=== PATIENT | female | born 1930 | race Asian ===

== ENCOUNTER 2019-11-03 15:14 | Inpatient (IN) | payer MEDICARE, MEDICAID ==
[~2019-11-03] VITALS: Ht 154.9 cm; Wt 45.5 kg
[2019-11-03 15:15] VITALS: BP 138/76
--- NOTE | 2019-11-03 15:15 | NUR ---
ED Nurse Note: Patient arrived by ambulance from [facility]. The staff called 911 after pt's blood glucose was <30. EMS gave D10 enroute with subsequent BG reading of 187. Patient AxO x 1-2, has hx of alzheimers and dementia. Able to tell her name. Currently having no pain.
--- NOTE | 2019-11-03 15:19 | Emergency Room Report ---
History of Present Illness General Chief Complaint: Abnormal Labs Source: Patient Present Illness HPI Patient is a 89-year-old female presents for increased altered mental status. She was noted to have low blood sugar by EMS. She been given D50 with some improvement in her blood sugar. She had prior history of dementia. Patient comes from a assisted living. She denies any current complaints. History is limited by poor historian. Patient is on Levemir as well as Janumet and glipizide. Patient was noted to have improvement in blood sugar after being seen by EMS and given IV dextrose. Allergies: Coded Allergies: No Known Allergies (Unverified , 11/03/19) Patient History Past Medical History: see triage record, DM Reviewed Nursing Documentation: PMH: Agreed; PSxH: Agreed Nursing Documentation-PMH Past Medical History: No History, Except For Hx Hypertension: Yes Hx Diabetes: Yes Review of Systems All Other Systems: limited - Review of systems: Review systems is limited by patient's being a poor historian Physical Exam Vital Signs Date Time Temp Pulse Resp B/P (MAP) Pulse Ox O2 Delivery O2 Flow Rate FiO2 11/03/19 15:09 98 17 162/75 (104) 98 Room Air Sp02 EP Interpretation: reviewed, normal General Appearance: normal inspection, well appearing, no apparent distress, alert, obese, Chronically Ill Head: atraumatic ENT: normal ENT inspection, hearing grossly normal, normal voice Neck: normal inspection, full range of motion, supple, no bony tend Respiratory: normal inspection, lungs clear, normal breath sounds, no respiratory distress, no retraction, no wheezing Cardiovascular #1: regular rate, rhythm, no edema Gastrointestinal: normal inspection, normal bowel sounds, non tender, soft, no guarding, no hernia Genitourinary: no CVA tenderness Musculoskeletal: normal inspection, back normal, normal range of motion Neurologic: alert, motor strength/tone normal, marketing project specialist III-XII nml as tested, responsive, speech normal, normal inspection Psychiatric: normal inspection, judgement/insight normal, mood/affect normal Skin: Decubitus/Ulcer, other - skin ulcer Medical Decision Making Diagnostic Impression: Primary Impression: Hypoglycemia associated with type 2 diabetes mellitus Additional Impressions: Hypothermia Decubital ulcer ER Course Patient presented for low blood sugar. Differential diagnosis include was not limited to sepsis, medication overdose, decreased renal function, among others. Because of complexity of patient's case laboratory tests and imaging studies were ordered.patient's left her testing did not show any evidence of any definite infection . patient was noted to be somewhat hypothermic in the emergency department. She was started on warming blanket. Patient was given dextrose in the field and was noted to have improvement her blood sugar. Recheck of blood sugar showed adequate sugar level.Patient was noted to have some improvement in her temperature with a warming blanket. Dr. Maximino Harmon was contacted for inpatient management due to panel physician and prior use of oral sulfonylurea. Labs Test 11/03/19 15:50 11/03/19 17:10 White Blood Count 6.7 K/UL (4.8-10.8) Red Blood Count 3.57 M/UL (4.20-5.40) Hemoglobin 10.9 G/DL (12.0-16.0) Hematocrit 31.1 % (37.0-47.0) Mean Corpuscular Volume 87 FL (80-99) Mean Corpuscular Hemoglobin 30.5 PG (27.0-31.0) Mean Corpuscular Hemoglobin Concent 35.0 G/DL (32.0-36.0) Red Cell Distribution Width 11.8 % (11.6-14.8) Platelet Count 289 K/UL (150-450) Mean Platelet Volume 5.1 FL (6.5-10.1) Neutrophils (%) (Auto) 84.4 % (45.0-75.0) Lymphocytes (%) (Auto) 10.8 % (20.0-45.0) Monocytes (%) (Auto) 3.7 % (1.0-10.0) Eosinophils (%) (Auto) 0.5 % (0.0-3.0) Basophils (%) (Auto) 0.5 % (0.0-2.0) Sodium Level 142 MMOL/L (136-145) Potassium Level 3.8 MMOL/L (3.5-5.1) Chloride Level 104 MMOL/L (98-107) Carbon Dioxide Level 27 MMOL/L (21-32) Anion Gap 11 mmol/L (5-15) Blood Urea Nitrogen 22 mg/dL (7-18) Creatinine 1.2 MG/DL (0.55-1.30) Estimat Glomerular Filtration Rate mL/min (>60) Glucose Level 186 MG/DL (74-106) Lactic Acid Level 1.30 mmol/L (0.4-2.0) Calcium Level 9.3 MG/DL (8.5-10.1) Total Bilirubin 0.2 MG/DL (0.2-1.0) Aspartate Amino Transf (AST/SGOT) 41 U/L (15-37) Alanine Aminotransferase (ALT/SGPT) 26 U/L (12-78) Alkaline Phosphatase 58 U/L (46-116) Total Creatine Kinase 138 U/L (26-308) Creatine Kinase MB 2.5 NG/ML (0.0-3.6) Creatine Kinase MB Relative Index 1.8 Troponin I 0.009 ng/mL (0.000-0.056) Total Protein 8.1 G/DL (6.4-8.2) Albumin 3.0 G/DL (3.4-5.0) Globulin 5.1 g/dL Albumin/Globulin Ratio 0.6 (1.0-2.7) Urine Color Pale yellow Urine Appearance Clear Urine pH 6.5 (4.5-8.0) Urine Specific [place] 1.015 (1.005-1.035) Urine Protein 2+ (NEGATIVE) Urine Glucose (UA) 2+ (NEGATIVE) Urine Ketones Negative (NEGATIVE) Urine Blood 2+ (NEGATIVE) Urine Nitrite Negative (NEGATIVE) Urine Bilirubin Negative (NEGATIVE) Urine Urobilinogen Normal MG/DL (0.0-1.0) Urine Leukocyte Esterase Negative (NEGATIVE) Urine RBC 5-10 /HPF (0 - 2) Urine WBC 0-2 /HPF (0 - 2) Urine Squamous Epithelial Cells Moderate /LPF (NONE/OCC) Urine Bacteria Few /HPF (NONE) EKG Diagnostic Results Rate: normal - 83 Rhythm: NSR ST Segments: no acute changes Last Vital Signs Date Time Temp Pulse Resp B/P (MAP) Pulse Ox O2 Delivery O2 Flow Rate FiO2 11/03/19 15:09 98 17 162/75 (104) 98 Room Air Status: improved Disposition: ADMITTED INPATIENT Condition: Stable Solitario Hameed MD Nov 03, 2019 15:19
[2019-11-03] MEDS ORDERED: LOSARTAN POTASS25 MG ORAL (15:25)
[2019-11-03] MEDS ORDERED: NAMENDA10 MG ORAL (15:25)
[2019-11-03] MEDS ORDERED: TRIAMCINOLONE A15 G2 TP (15:25)
[2019-11-03] MEDS ORDERED: JANUMET 50-1,01 EACH ORAL (15:25)
[2019-11-03] MEDS ORDERED: LEVEMIR100 UNIT/1 SUBQ (15:25)
[2019-11-03] MEDS ORDERED: MIRTAZAPINE7.5 MG ORAL (15:25)
[2019-11-03] MEDS ORDERED: DONEPEZIL HCL5 M2 ORAL (15:25)
[2019-11-03] MEDS ORDERED: CRESTOR10 M1 ORAL (15:25)
[2019-11-03] MEDS ORDERED: LEVOCETIRIZINE D5 MG ORAL (15:25)
[2019-11-03] MEDS ORDERED: GLIPIZIDE5 MG ORAL (15:25)
--- NOTE | 2019-11-03 15:34 | NUR ---
ED Nurse Note: RECTAL TEMP 93.[address] LAI WAS NOTIFIED.
--- NOTE | 2019-11-03 15:45 | NUR ---
ED Nurse Note: After confirming rectal temp with recheck of 93.3 degrees, Bare Hugger placed on patient along with [address] Yoseph meyer.
[2019-11-03 16:14] LABS: BASOPHILS % (AUTO) 0.5 % (0.0-2.0); EOSINOPHILS % (AUTO) 0.5 % (0.0-3.0); HEMATOCRIT 31.1 % (37.0-47.0); HEMOGLOBIN 10.9 G/DL (12.0-16.0); LYMPHOCYTES % (AUTO) 10.8 % (20.0-45.0); MEAN CORPUSCULAR VOLUME 87 FL (80-99); MONOCYTES % (AUTO) 3.7 % (1.0-10.0); NEUTROPHILS % (AUTO) 84.4 % (45.0-75.0); PLATELET COUNT 289 K/UL (150-450); RED BLOOD COUNT 3.57 M/UL (4.20-5.40); RED CELL DISTRIBUTION WIDTH 11.8 % (11.6-14.8); WHITE BLOOD COUNT 6.7 K/UL (4.8-10.8)
[2019-11-03 16:20] VITALS: BP 121/78
[2019-11-03 16:42] LABS: ANION GAP 11 mmol/L (5-15); BLOOD UREA NITROGEN 22 mg/dL (7-18); CALCIUM 9.3 MG/DL (8.5-10.1); CARBON DIOXIDE 27 MMOL/L (21-32); CHLORIDE 104 MMOL/L (98-107); CREATININE 1.2 MG/DL (0.55-1.30); POTASSIUM 3.8 MMOL/L (3.5-5.1); SODIUM 142 MMOL/L (136-145)
--- NOTE | 2019-11-03 16:45 | NUR ---
ED Nurse Note: Recheck rectal temp is 93.7. Dr. Hameed aware. Patient resting in bed. Responds to questions, no s/s of acute distress.
[2019-11-03 17:08] LABS: ALANINE AMINOTRANSFERASE 26 U/L (12-78); ALBUMIN/GLOBULIN RATIO 0.6 (1.0-2.7); ALKALINE PHOSPHATASE 58 U/L (46-116); ASPARTATE AMINO TRANSFERASE 41 U/L (15-37); BILIRUBIN,TOTAL 0.2 MG/DL (0.2-1.0); CKMB 2.5 NG/ML (0.0-3.6); CREATINE KINASE 138 U/L (26-308)
[2019-11-03 17:20] VITALS: BP 112/80
[2019-11-03 17:25] LABS: APPEARANCE,URINE CLEAR; BILIRUBIN, URINE NEGATIVE (NEGATIVE); COLOR,URINE PALE YELLOW; GLUCOSE, URINE (UA) 2+ (NEGATIVE); KETONES,URINE NEGATIVE (NEGATIVE); LEUKOCYTE ESTERASE ,URINE NEGATIVE (NEGATIVE); NITRITE,URINE NEGATIVE (NEGATIVE); PH,URINE 6.5 (4.5-8.0); PROTEIN,URINE 2+ (NEGATIVE); UROBILINOGEN,URINE NORMAL MG/DL (0.0-1.0)
--- NOTE | 2019-11-03 17:50 | NUR ---
ED Nurse Note: Called and gave report to Melvi VANCE
--- NOTE | 2019-11-03 18:10 | NUR ---
NURSE NOTES: Patient arrived from the ER by cristel with nurse Lobo and CERTIFIED MEDICAL TECHNICIAN assistance. Patient's in stable condition, no s/s of distress or SOB, denies pain, AO x 2-3. front desk monitor applied, IV is Left AC, 18g, intact, patent and asymptomatic, change into hospital gown, yellow socks applied. Left anne noted with deep tissue injury, pictures taken. Patient's cool to touch but appear to be shivering. Checked axillary temp: 93.9, rechecked oral temp: 97.3. Bed low and locked, call light within reach, side rails x 3, bed alarm is armed. Left message to Dr. Harmon for the new admission. Awaiting for response. Vital signs: BP 165/73, AZ 84, RR 17, O2 95%, Temp: 97.3 Oral.
--- NOTE | 2019-11-03 19:20 | NUR ---
NURSE NOTES: Received report from RAJIV Ogden. Pt is sleeping, lying, semi-quinonez's; resting comfortably. No signs of acute distress noted. AOx1. Unable to make needs known. Primarily speaks Macedonian. Checked IV site; patent and flushed. No erythema, bleeding, or infiltration noted. Bed at lowest position, brakes on, siderails up x2. Call light within reach. Will continue to monitor.
--- NOTE | 2019-11-03 19:35 | NUR ---
HAND-OFF: Report given to RAJIV Bajwa. Patient's stable. Plan of care endorsed. .
[2019-11-03 20:00] VITALS: BP 149/78
[2019-11-03] MEDS ORDERED: Vancomycin 1gm/D5W 275ml IVPB ONE ×2 (20:00)
--- NOTE | 2019-11-03 20:06 | NUR ---
NURSE NOTES: Notified Dr. Harmon regarding patient's stage III pressure ulcer on lower leg. Was told, "I'll consult someone for that." Also notified him that the patient may need diet modifications since she has no teeth. Received new order for ST evaluation. Noted and carried out.
--- NOTE | 2019-11-03 21:00 | History and Physical Report ---
DATE OF ADMISSION: 11/03/2019 CHIEF COMPLAINT: Hypothermia and hypoglycemia. HISTORY OF PRESENT ILLNESS: The patient is an 89-year-old female. She is unable to provide any history. She is transferred from either assisted living or half-way facility with complaints of hypoglycemia. There was only a med list from the shelter. The patient apparently has a history of hypertension and diabetes, unclear whether or not she has been eating. She is also on long-acting insulin. On evaluation in the emergency room, the patient was hypothermic. Her sugar that was 186, she did receive sugar in the field. In light of her persistent hypothermia, she is admitted for further evaluation and care. PAST MEDICAL HISTORY: As above. PAST SURGICAL HISTORY: Unknown. CURRENT MEDICATIONS: Reconciled and reviewed. ALLERGIES: None. FAMILY HISTORY: Unknown. SOCIAL HISTORY: There is no known history of tobacco, ethanol, or drugs. REVIEW OF SYSTEMS: From the patient is unobtainable. PHYSICAL EXAMINATION: VITAL SIGNS: Temperature was 93.2, pulse 98, respirations 17, and blood pressure 152/75. GENERAL: The patient is well developed, in no apparent distress. HEART: Regular rate and rhythm. LUNGS: Clear. ABDOMEN: Soft, nontender, nondistended. EXTREMITIES: Without clubbing, cyanosis, or edema. The patient has a wound on the left anne, approximately 3 x 3 cm with some mild erythema. LABORATORY DATA: UA was clear. White count was 6, hemoglobin 10, hematocrit 31, and platelets 289,000. Sodium 142 and potassium is 3.8. A1c was 7.4. Creatinine is 1.2. TSH was 0.229. Troponin is 0.009. EKG showed sinus rhythm. ASSESSMENT: This is an 89-year-old female with complaints of hypothermia and hypoglycemia, suspect secondary to her insulin regimen. She also has a history of hypertension. PLAN: 1. IV hydration. 2. Monitor Accu-Cheks. 3. We will discontinue insulin and oral hypoglycemics. 4. Repeat troponin in the morning. 5. We will check a full thyroid function panel as well as a cortisol level. 6. The patient received IV antibiotic therapy for possible cellulitis. 7. We will get a CT scan of the legs, rule out underlying osteo. 8. Surgery consultation and Cardiology evaluation to be obtained. Maximino Harmon M.D. DR: BUCK JOB#: [id number] CC:
[2019-11-03] MEDS: NovoLOG Insulin Flexpen SUBQ SCH (21:26)
[2019-11-03] MEDS: Heparin 5000 units/ml inj SUBQ SCH (21:31)
[2019-11-03] MEDS: Piperacillin/Tazobactam 3.375 GM in NS 110 ML IVPB SCH (22:36)
--- NOTE | 2019-11-03 23:45 | NUR ---
NURSE NOTES: Called ER and ER admitting to retrieve patient's packet from [facility]. Was told, "they never sent us a packet. Only a face sheet." In an attempt to call [facility] for patient's packet and pneumonia/influenza vaccine information, received response from what sounds to be an [employer] officer stating that there is a door to door search underway in the facility looking for a gunman. Will attempt to call again at a later time.
[2019-11-04] VITALS: BP 135/58
--- NOTE | 2019-11-04 03:50 | NUR ---
NURSE NOTES: Pt is sleeping. Checked IV lines and rate; patent and running. Will continue to monitor.
[2019-11-04 04:00] VITALS: BP 114/58
[2019-11-04] MEDS: Piperacillin/Tazobactam 3.375 GM in NS 110 ML IVPB SCH ×3 (06:00→22:07)
[2019-11-04] MEDS: NovoLOG Insulin Flexpen SUBQ SCH ×4 (06:30→20:42)
[2019-11-04 06:31] LABS: BASOPHILS % (AUTO) 0.4 % (0.0-2.0); EOSINOPHILS % (AUTO) 0.3 % (0.0-3.0); HEMATOCRIT 29.7 % (37.0-47.0); HEMOGLOBIN 9.7 G/DL (12.0-16.0); LYMPHOCYTES % (AUTO) 13.8 % (20.0-45.0); MEAN CORPUSCULAR VOLUME 91 FL (80-99); MONOCYTES % (AUTO) 4.7 % (1.0-10.0); NEUTROPHILS % (AUTO) 80.8 % (45.0-75.0); PLATELET COUNT 325 K/UL (150-450); RED BLOOD COUNT 3.27 M/UL (4.20-5.40); RED CELL DISTRIBUTION WIDTH 13.1 % (11.6-14.8); WHITE BLOOD COUNT 17.6 K/UL (4.8-10.8)
[2019-11-04 07:14] LABS: ALANINE AMINOTRANSFERASE 20 U/L (12-78); ALBUMIN 2.6 G/DL (3.4-5.0); ALBUMIN/GLOBULIN RATIO 0.6 (1.0-2.7); ALKALINE PHOSPHATASE 51 U/L (46-116); ANION GAP 6 mmol/L (5-15); ASPARTATE AMINO TRANSFERASE 36 U/L (15-37); BILIRUBIN,TOTAL 0.6 MG/DL (0.2-1.0); BLOOD UREA NITROGEN 21 mg/dL (7-18); CALCIUM 8.4 MG/DL (8.5-10.1); CARBON DIOXIDE 29 MMOL/L (21-32); CHLORIDE 107 MMOL/L (98-107); CREATININE 1.3 MG/DL (0.55-1.30); POTASSIUM 3.7 MMOL/L (3.5-5.1); SODIUM 142 MMOL/L (136-145)
--- NOTE | 2019-11-04 07:28 | NUR ---
NURSE NOTES: Dr. Harmon at the nursing station, made aware of WBC went up from 6.7 to 17.6, no fever, already on Vanco and Zosyn. No new order given at this time. Will continue to monitor.
--- NOTE | 2019-11-04 07:29 | NUR ---
NURSE NOTES: Dr. Harmon at [facility] nursing station, made aware of blood glucose was 30, dextrose IVP x1, most recent BS 187.
--- NOTE | 2019-11-04 07:31 | NUR ---
HAND-OFF: Report given to RAJIV Alvarez. Pt is awake and in stable condition.
--- NOTE | 2019-11-04 07:40 | NUR ---
NURSE NOTES: Received report from RAJIV Bajwa. Patient in bed resting, no active s/s cardiac, respiratory distress noticed at this time. AOx2, SR with HR 84. Endorsed BS was 32, dextrose IVP given x1, most recent BS 187, MD made aware. IV on left AC 18G, asymptomatic, patent, intact, IVF running as prescribed rate. Patient denies pain at this time. Bed in lowest position, side rails upx2, call light within reach, bed alarm on. Will continue to monitor.
[2019-11-04] MEDS: D5NS 1,000 ML IV SCH ×2 (07:41→20:36)
[2019-11-04 08:00] VITALS: BP 139/69
--- NOTE | 2019-11-04 08:56 | General Progress Note ---
Assessment/Plan Problem List: (1) Sepsis ICD Codes: A41.9 - Sepsis, unspecified organism SNOMED: 46417231 (2) Toxic metabolic encephalopathy ICD Codes: G92 - Toxic encephalopathy SNOMED: 082301511 (3) Hypothermia ICD Codes: T68.XXXA - Hypothermia, initial encounter SNOMED: 063549520 (4) Decubital ulcer ICD Codes: L89.90 - Pressure ulcer of unspecified site, unspecified stage SNOMED: 794610626 (5) Hypoglycemia associated with type 2 diabetes mellitus ICD Codes: E11.649 - Type 2 diabetes mellitus with hypoglycemia without coma SNOMED: 713589300, 15346057 Status: stable Assessment/Plan: ivf with dextrose iv abx id eval pending follow up cultures ct left leg Subjective ROS Limited/Unobtainable: No Constitutional: Reports: malaise, weakness HEENT: Reports: no symptoms Cardiovascular: Reports: no symptoms Respiratory: Reports: no symptoms Gastrointestinal/Abdominal: Reports: no symptoms Genitourinary: Reports: no symptoms Neurologic/Psychiatric: Reports: pre-existing deficit Endocrine: Reports: no symptoms Hematologic/Lymphatic: Reports: no symptoms Allergies: Coded Allergies: No Known Allergies (Unverified , 11/03/19) All Systems: reviewed and negative except above Subjective hypoglycemic this am. minimal po. wbc elevated. Objective Last 24 Hour Vital Signs Date Time Temp Pulse Resp B/P (MAP) Pulse Ox O2 Delivery O2 Flow Rate FiO2 11/04/19 08:00 96.8 83 20 139/69 (92) 97 11/04/19 04:00 98.1 84 20 114/58 (76) 93 11/04/19 03:38 83 11/04/19 00:00 90 11/04/19 00:00 98.0 94 22 135/58 (83) 93 11/03/19 20:00 96 11/03/19 20:00 98.1 98 22 149/78 (101) 93 11/03/19 19:00 Room Air 11/03/19 18:10 93.7 82 18 112/76 97 Room Air 11/03/19 17:20 93.7 17 112/80 98 Room Air 11/03/19 16:20 93.5 18 121/78 99 Room Air 11/03/19 15:15 93.2 17 138/76 98 Room Air 11/03/19 15:09 93.2 98 17 162/75 (104) 98 Room Air Intake and Output 11/03/19 11/04/19 19:00 07:00 Intake Total 0 ml 640.5 ml Output Total 500 ml Balance -500 ml 640.5 ml Intake Oral 0 ml 140 ml IV Total 500.5 ml Output Urine Total 500 ml # Voids 1 Laboratory Tests 11/03/19 15:50: White Blood Count 6.7, Red Blood Count 3.57L, Hemoglobin 10.9L, Hematocrit 31.1L , Mean Corpuscular Volume 87, Mean Corpuscular Hemoglobin 30.5, Mean Corpuscular Hemoglobin Concent 35.0, Red Cell Distribution Width 11.8, Platelet Count 289, Mean Platelet Volume 5.1L, Neutrophils (%) (Auto) 84.4H, Lymphocytes (%) (Auto) 10.8L, Monocytes (%) (Auto) 3.7, Eosinophils (%) (Auto) 0.5, Basophils (%) (Auto) 0.5, Sodium Level 142, Potassium Level 3.8, Chloride Level 104, Carbon Dioxide Level 27, Anion Gap 11, Blood Urea Nitrogen 22H, Creatinine 1.2, Estimat Glomerular Filtration Rate , Glucose Level 186H, Hemoglobin A1c 7.4H, Lactic Acid Level 1.30, Calcium Level 9.3, Total Bilirubin 0.2, Aspartate Amino Transf (AST/SGOT) 41H, Alanine Aminotransferase (ALT/SGPT) 26, Alkaline Phosphatase 58, Total Creatine Kinase 138, Creatine Kinase MB 2.5, Creatine Kinase MB Relative Index 1.8, Troponin I 0.009, Total Protein 8.1, Albumin 3.0L , Globulin 5.1, Albumin/Globulin Ratio 0.6L, Thyroid Stimulating Hormone (TSH) 0.229L 11/03/19 17:10: Urine Color Pale yellow, Urine Appearance Clear, Urine pH 6.5, Urine Specific [place] 1.015, Urine Protein 2+H, Urine Glucose (UA) 2+H, Urine Ketones Negative , Urine Blood 2+H, Urine Nitrite Negative, Urine Bilirubin Negative, Urine Urobilinogen Normal, Urine Leukocyte Esterase Negative, Urine RBC 5-10H, Urine WBC 0-2, Urine Squamous Epithelial Cells ModerateH, Urine Bacteria Few 11/04/19 05:30: White Blood Count 17.6#H, Red Blood Count 3.27L, Hemoglobin 9.7L, Hematocrit 29.7L, Mean Corpuscular Volume 91, Mean Corpuscular Hemoglobin 29.5, Mean Corpuscular Hemoglobin Concent 32.5, Red Cell Distribution Width 13.1, Platelet Count 325, Mean Platelet Volume 5.1L, Neutrophils (%) (Auto) 80.8H, Lymphocytes (%) (Auto) 13.8L, Monocytes (%) (Auto) 4.7, Eosinophils (%) (Auto) 0.3, Basophils (%) (Auto) 0.4, Sodium Level 142, Potassium Level 3.7, Chloride Level 107, Carbon Dioxide Level 29, Anion Gap 6, Blood Urea Nitrogen 21H, Creatinine 1.3, Estimat Glomerular Filtration Rate , Glucose Level 30#*L, Calcium Level 8.4L, Total Bilirubin 0.6, Aspartate Amino Transf (AST/SGOT) 36, Alanine Aminotransferase (ALT/SGPT) 20, Alkaline Phosphatase 51, Total Protein 7.3, Albumin 2.6L, Globulin 4.7, Albumin/Globulin Ratio 0.6L, Cortisol [Pending] Height (Feet): 5 Height (Inches): 1.00 Weight (Pounds): 100 General Appearance: WD/WN, alert Neck: supple Cardiovascular: normal rate, regular rhythm Respiratory/Chest: chest wall non-tender, lungs clear, normal breath sounds, no respiratory distress Abdomen: normal bowel sounds, non tender, soft, no organomegaly Edema: no edema noted Arm (L), no edema noted Arm (R), no edema noted Leg (L) - 3x3 cm ulcer left anne, no edema noted Leg (R), no edema noted Pedal (L), no edema noted Pedal (R), no edema noted Generalized Neurologic: alert, responsive Maximino Harmon MD Nov 04, 2019 08:56
[2019-11-04] MEDS: Pantoprazole Inj IVP SCH (09:16)
[2019-11-04] MEDS: Heparin 5000 units/ml inj SUBQ SCH ×2 (09:16→20:39)
--- NOTE | 2019-11-04 10:42 | NUR ---
NURSE NOTES: Skin assessed with wound nurse, patient positive for scabies, scratching abdomen area, no opening at this time. Dr. Harmon made aware, per MD, Elimite head to toe. Order noted, entered, carried out. Will continue to monitor.
--- NOTE | 2019-11-04 11:07 | Diagnostic Imaging Report ---
Indication: Shortness of breath Technique: One view of the chest Comparison: none Findings: Inspiration is suboptimal. There are basilar atelectatic changes. 1 cm nodular opacity projects in the left midlung. This may be calcified. This may also be within the anterior left third rib. No definite infiltrates or effusions. The heart size is upper limits normal Impression: 1 cm left lung nodule versus left third rib lesion. Consider CT for further evaluation if clinically indicated. Dr. Harmon notified at the time of interpretation No acute process otherwise
--- NOTE | 2019-11-04 11:59 | NUR ---
RD ASSESSMENT & RECOMMENDATIONS SEE CARE ACTIVITY FOR COMPLETE ASSESSMENT DAILY ESTIMATED NEEDS: Needs based on Wound, advanced age, DM 51.8kg 25-35 kcals/kg 7623-3633 total kcals 1.25-1.5 g protein/kg 65-78 g total protein 25-30ml/kcal mL/kg 0571-4043 total fluid mLs NUTRITION DIAGNOSIS: Altered nutrition related lab values r/t diabetes as evidenced by A1C 7.4, U glu 2+, w/ hypoglycemic event (30*) [facility] pure[facility] PO DIET RECOMMENDATIONS: Liberalized Regular diet (texture per ALLEY WORKER) ADDITIONAL RECOMMENDATIONS: 1) W/ poor po intake, rec GLUCERNA as HPN w/ meals 2) F/up w/ WC eval-> rec JAGUAR BID 3) Calibrated bed scale weight SNF wt: 114lbs, Bed wt: 116lbs 4) ALLEY WORKER eval for texture 5) HS snacks nightly to prevent hypoglycemia + Snacks in b/w meals
[2019-11-04 12:00] VITALS: BP 130/77
--- NOTE | 2019-11-04 12:15 | NUR ---
NOTES: REFERRED BY DR SAUCEDO FOR SWALLOW EVAL, SEE FULL REPORT. DYSPHAGIA RISK FACTORS FOR THIS 89 Y.O. ADVANCED AGED FEMALE: ACUTE ABNORMAL LABS, SULFONUREA ASSOCIATED WITH HYPOGLYCEMIA (TYPE 2 DM), HYPOTHERMIA, LUNGS ARE CLEAR PER CXR. H/O ON GERD MEDS NOW, ALZHEIMER'S DZ DEMENTIA (ON 2 MEDS MEMANTINE AND DONEPEZIL), MIRTAZAPINE FOR DEPRESSION, HTN, DIABETES (GLIPIZIDE), RHABDOMYOLYSIS. IN ASSISTED LIVING ? DIET TYPE AND NO POLST/ADVANCE DIRECTIVE REGARDING TUBE FEEDING PREFERENCES IF NEEDS. CURRENTLY ON A CCHO-MED PUREED AND THIN LIQUID DIET W/O REPORTED OVERT ASPIRATION AND NO PO MEDS GIVEN PER RN, MANGO. NO RD REPORT TO DATE AND INTAKE IS ONLY 50% WITH ASSIST TO EAT/DRINK. PER RN INDONESIAN VACUUM TRUCK DRIVER, PATIENT CONFUSED BUT CAN INTELLIGIBLY EXPRESS SOME BASIC NEEDS. EDENTULOUS AND DID NOT UNDERSTAND QUESTION ABOUT DENTURES. INITIAL IMPRESSIONS: S/S OF A MILD-MODERATE OROPHARYNGEAL DYSPHAGIA HAS GROSSLY FUNCTIONAL LIP CLOSURE FOR STRAW/TSP. TONGUE ROM IS GROSSLY FUNCTIONAL DIFFICULT TO TEST STRENGTH AND SPEECH MILDLY SLOWER. GIVEN TSP PUREED HAS LONGER OROPHARYNGEAL TRANSIT TIMES AND TAKES 2-6 SECONDS PRIOR TO TRIGGERING A SWALLOW (FAIR HYOLARYNGEAL EXCURSION), WITH MILD ORAL RESIDUE (MIDDLE OF MOUTH) AT TIMES BUT CLEARS WITH EXTRA SWALLOW (S) 1-2 EXTRA, NO OVERT ASPIRATION. NEEDS CUES NOT TO SPEAK WITH PUREED IN HER MOUTH (INCREASES ASPIRATION RISK DUE TO COGNITIVE-BEHAVIORAL DEFICITS). GIVEN THIN LIQUIDS VIA STRAW, ONLY TOOK ONE SIP AT A TIME, SWALLOWED AFTER A FEW SECONDS WITH FAIR HYOLARYNGEAL EXCURSION BUT SWALLOW LOOKS EFFORTFUL, AND COMPLETED EXTRA SWALLOW AFTER A FEW MORE SECONDS, NO OVERT ASPIRATION. HAS SILENT ASP RISK BUT LUNGS ARE CLEAR NOW. INTAKE SLOW, NEEDS FEEDER, AND INTAKE ONLY 50%. PER RN, NO ISSUES WITH APPETITE. RECOMMENDATIONS: CONSIDER COMPLETING A MOD BARIUM SWALLOW STUDY IP OR OP IF DC IF PO CONTINUES FOR QUALITY OF LIFE, CONSIDER CONTINUING WITH CURRENT CCHO-MED PUREED DIET BUT MAKE MOIST AND THIN LIQUIDS (ONE SIP AT A TIME) WITH CUES IN INDONESIAN FOR ASPIRATION AND REFLUX PRECAUTIONS (NO TALKING WITH FOOD/LIQUIDS IN MOUTH) AND ONE TO ONE FEEDING. SEND HIGH ALLEN SUP PER RD (GLUCERNA TID) EDUCATED/TRAINED RN MANGO IN POSTED ASP/REFLUX PRECAUTIONS. SKILLED DYSPHAGIA MANAGEMENT AND TX AND COG-COM EVAL TX FOR COM TIPS (FOR ALZHEIMER'S DEMENTIA). LEFT MESSAGE WITH DR SAUCEDO
--- NOTE | 2019-11-04 12:28 | Diagnostic Imaging Report ---
Indication: Pain, wound of left proximal ankle Technique: No IV contrast utilized, reason not stated. Spiral acquisitions obtained through the left ankle Multiplanar reconstructions were generated. Total dose length product 245 mGycm. CTDIvol(s) 4 mGy. Radiation dose was minimized using automated exposure control Comparison: none Findings: There is edema of the subcutaneous fat of the ankle, predominantly laterally and posteriorly. No definite discrete fluid collection is demonstrated, although evaluation for such is limited in the absence of IV contrast. There is irregularity of the superficial soft tissues of the distal anne region which presumably reflects an area of ulceration. No associated discrete fluid collection demonstrated. The bones are intact. No evidence of acute fracture, dislocation, osteolytic defect, osseous erosion, or unusual periosteal reaction. There is a calcaneal spur present. Impression: Irregularity of the superficial soft tissues in the distal anne region is probably reflecting an area of ulceration No definite discrete fluid collection to suggest abscess, although evaluation for such is limited in the absence of IV contrast Edema of the subcutaneous fat. This may be vasogenic in origin or could indicate cellulitis No definite findings to suggest acute osteomyelitis. Note, however, limited sensitivity of plain radiographs for such. If there is high clinical suspicion an MRI or bone scan should be considered for further evaluation. The CT scanner at [facility] is accredited by the [employer] and the scans are performed using protocols designed to limit radiation exposure to as low as reasonably achievable to attain images of sufficient resolution adequate for diagnostic evaluation.
--- NOTE | 2019-11-04 13:02 | NUR ---
NURSE NOTES:WOUND CARE NOTES:Pt presented on admission with Full thickness ulcer jasbir L tibia. Base of wound has 90% fibrinous slough,which was removed with friction with Gauze (L)2cm x(W)2.5cm x (D)0.5cm . Borders macerated with surrounding erythema. No elevation in skin temp noted. R and L heels are both boggy with non-blanching erythema. Non-blanching erythema sacrum with small sheared area noted. Surrounding hyperpigmentation from previous wound. Pt noted to have generalized pimple -like rash,with burrowing noted to R and L lateral axillae,web spaces of both hands,chest ,both flanks, both groin areas,and both feet. Pt noted to be aggressively scratching at skin. Tx.Plan: Please notify of Pt's rash. Cleanse wound jasbir L tibia with Saline. Apply Therahoney. Apply Cavilon Skin Barrier periwound.Cover with Optifoam drsg. Daily and PRN. Apply Moisture Barrier Paste to Sacrum. Cover with Optifoam drsg. Change every 3 days and prn. Apply Cavilon Skin Barrier to both heels. Cover each heel with Optifoam drsg. Change every 7 days and prn. Reposition at least every 2hours or as tolerated. Off-load heels with pillow.
--- NOTE | 2019-11-04 13:37 | NUR ---
CASE MANAGEMENT:REVIEW 89 YR OLD FEMALE BIBA FROM [facility] CC: ABNORMAL LABS AND LOW BLOOD SUGAR. BS-25 PMH: ALZHEIMER DEMENTIA SI:SEPSIS.HYPOGLYCEMIA. HYPOTHERMIA 93.2 (R) 98 17 162/75 98 % ON RA BUN+22 GLUCOSE+186 IS: TRACIE BERMUDEZ IV VANCOMYCIN IVF@100/HR BLOOD CX CXR : TELEMETRY DCP: FROM ASSISTED LIVING
--- NOTE | 2019-11-04 15:04 | Consultation ---
History of Present Illness General Date patient seen: Nov 04, 2019 Chief Complaint: Abnormal Labs Present Illness HPI This is a 89-year-old female with multiple medical committees who is in assisted living was identified to have altered mental status and hypoglycemic and abnormal labs. Patient was transferred to [facility] for evaluation. Patient was admitted for further care and management. On admission noted to have abnormal labs multiple wounds requiring care and management. Surgery called to evaluate and assist with care. Patient seen, patient evaluated, chart reviewed. Patient unable to provide history given medical condition and mental status at the time. She is limited given her advanced age. Allergies: Coded Allergies: No Known Allergies (Unverified , 11/03/19) Medication History Scheduled Donepezil Hcl* (Donepezil Hcl*), 5 MG ORAL DAILY, (Reported) Glipizide* (Glipizide*), 5 MG ORAL DAILY, (Reported) Insulin Detemir (Levemir), 20 SUBQ ACBREAKFAST, (Reported) Levocetirizine Dihydrochloride (Levocetirizine Dihydrochloride), 5 MG ORAL DAILY , (Reported) Losartan Potassium* (Losartan Potassium*), 25 MG ORAL DAILY, (Reported) Memantine Hcl* (Namenda*), 28 MG ORAL DAILY, (Reported) Mirtazapine* (Mirtazapine*), 7.5 MG ORAL BEDTIME, (Reported) Rosuvastatin Calcium (Crestor), 5 MG ORAL DAILY, (Reported) Sitagliptin Phos/Metformin Hcl (Janumet 50-1,000 Mg Tablet), 1 TAB ORAL DAILY, ( Reported) Triamcinolone Acetonide (Triamcinolone Acetonide 0.1% Oint*), 0 TP TWICE A DAY, (Reported) Patient History Limited by: age, medical condition History Provided By: Medical Record, PMD Healthcare decision maker Resuscitation status Full Code Advanced Directive on File Past Medical/Surgical History Past Medical/Surgical History: (1) Hypothermia (2) Decubital ulcer (3) Sepsis (4) Toxic metabolic encephalopathy (5) Hypoglycemia associated with type 2 diabetes mellitus Review of Systems ROS Narrative Unable to provide given current medical condition mental status Physical Exam General Appearance: no apparent distress Lines, tubes and drains: peripheral HEENT: atraumatic, anicteric, mucous membranes moist Neck: normal alignment, supple Respiratory/Chest: no respiratory distress, no accessory muscle use, decreased breath sounds Cardiovascular/Chest: normal rate, no JVD Abdomen: soft, no organomegaly, no mass, other Extremities: slow capillary refill Skin Exam: warm/dry Neurologic: unresponsiveness Last 24 Hour Vital Signs Date Time Temp Pulse Resp B/P (MAP) Pulse Ox O2 Delivery O2 Flow Rate FiO2 11/04/19 12:00 98.6 80 18 130/77 (94) 98 11/04/19 12:00 65 11/04/19 09:00 Room Air 11/04/19 08:00 71 11/04/19 08:00 96.8 83 20 139/69 (92) 97 11/04/19 04:00 98.1 84 20 114/58 (76) 93 11/04/19 03:38 83 11/04/19 00:00 90 11/04/19 00:00 98.0 94 22 135/58 (83) 93 11/03/19 20:00 96 11/03/19 20:00 98.1 98 22 149/78 (101) 93 11/03/19 19:00 Room Air 11/03/19 18:10 93.7 82 18 112/76 97 Room Air 11/03/19 17:20 93.7 17 112/80 98 Room Air 11/03/19 16:20 93.5 18 121/78 99 Room Air 11/03/19 15:15 93.2 17 138/76 98 Room Air 11/03/19 15:09 93.2 98 17 162/75 (104) 98 Room Air Intake and Output 11/03/19 11/04/19 19:00 07:00 Intake Total 0 ml 640.5 ml Output Total 500 ml Balance -500 ml 640.5 ml Intake Oral 0 ml 140 ml IV Total 500.5 ml Output Urine Total 500 ml # Voids 1 Laboratory Tests Test 11/03/19 15:50 11/03/19 17:10 11/04/19 05:30 White Blood Count 6.7 K/UL (4.8-10.8) 17.6 K/UL (4.8-10.8) #H Red Blood Count 3.57 M/UL (4.20-5.40) L 3.27 M/UL (4.20-5.40) L Hemoglobin 10.9 G/DL (12.0-16.0) L 9.7 G/DL (12.0-16.0) L Hematocrit 31.1 % (37.0-47.0) L 29.7 % (37.0-47.0) L Mean Corpuscular Volume 87 FL (80-99) 91 FL (80-99) Mean Corpuscular Hemoglobin 30.5 PG (27.0-31.0) 29.5 PG (27.0-31.0) Mean Corpuscular Hemoglobin Concent 35.0 G/DL (32.0-36.0) 32.5 G/DL (32.0-36.0) Red Cell Distribution Width 11.8 % (11.6-14.8) 13.1 % (11.6-14.8) Platelet Count 289 K/UL (150-450) 325 K/UL (150-450) Mean Platelet Volume 5.1 FL (6.5-10.1) L 5.1 FL (6.5-10.1) L Neutrophils (%) (Auto) 84.4 % (45.0-75.0) H 80.8 % (45.0-75.0) H Lymphocytes (%) (Auto) 10.8 % (20.0-45.0) L 13.8 % (20.0-45.0) L Monocytes (%) (Auto) 3.7 % (1.0-10.0) 4.7 % (1.0-10.0) Eosinophils (%) (Auto) 0.5 % (0.0-3.0) 0.3 % (0.0-3.0) Basophils (%) (Auto) 0.5 % (0.0-2.0) 0.4 % (0.0-2.0) Sodium Level 142 MMOL/L (136-145) 142 MMOL/L (136-145) Potassium Level 3.8 MMOL/L (3.5-5.1) 3.7 MMOL/L (3.5-5.1) Chloride Level 104 MMOL/L (98-107) 107 MMOL/L (98-107) Carbon Dioxide Level 27 MMOL/L (21-32) 29 MMOL/L (21-32) Anion Gap 11 mmol/L (5-15) 6 mmol/L (5-15) Blood Urea Nitrogen 22 mg/dL (7-18) H 21 mg/dL (7-18) H Creatinine 1.2 MG/DL (0.55-1.30) 1.3 MG/DL (0.55-1.30) Estimat Glomerular Filtration Rate mL/min (>60) mL/min (>60) Glucose Level 186 MG/DL (74-106) H 30 MG/DL (74-106) #*L Hemoglobin A1c 7.4 % (4.3-6.0) H Lactic Acid Level 1.30 mmol/L (0.4-2.0) Calcium Level 9.3 MG/DL (8.5-10.1) 8.4 MG/DL (8.5-10.1) L Total Bilirubin 0.2 MG/DL (0.2-1.0) 0.6 MG/DL (0.2-1.0) Aspartate Amino Transf (AST/SGOT) 41 U/L (15-37) H 36 U/L (15-37) Alanine Aminotransferase (ALT/SGPT) 26 U/L (12-78) 20 U/L (12-78) Alkaline Phosphatase 58 U/L (46-116) 51 U/L (46-116) Total Creatine Kinase 138 U/L (26-308) Creatine Kinase MB 2.5 NG/ML (0.0-3.6) Creatine Kinase MB Relative Index 1.8 Troponin I 0.009 ng/mL (0.000-0.056) Total Protein 8.1 G/DL (6.4-8.2) 7.3 G/DL (6.4-8.2) Albumin 3.0 G/DL (3.4-5.0) L 2.6 G/DL (3.4-5.0) L Globulin 5.1 g/dL 4.7 g/dL Albumin/Globulin Ratio 0.6 (1.0-2.7) L 0.6 (1.0-2.7) L Thyroid Stimulating Hormone (TSH) 0.229 uiU/mL (0.358-3.740) Urine Color Pale yellow Urine Appearance Clear Urine pH 6.5 (4.5-8.0) Urine Specific [place] 1.015 (1.005-1.035) Urine Protein 2+ (NEGATIVE) H Urine Glucose (UA) 2+ (NEGATIVE) H Urine Ketones Negative (NEGATIVE) Urine Blood 2+ (NEGATIVE) H Urine Nitrite Negative (NEGATIVE) Urine Bilirubin Negative (NEGATIVE) Urine Urobilinogen Normal MG/DL (0.0-1.0) Urine Leukocyte Esterase Negative (NEGATIVE) Urine RBC 5-10 /HPF (0 - 2) H Urine WBC 0-2 /HPF (0 - 2) Urine Squamous Epithelial Cells Moderate /LPF (NONE/OCC) H Urine Bacteria Few /HPF (NONE) Cortisol 11.5 UG/DL Height (Feet): 5 Height (Inches): 1.00 Weight (Pounds): 100 Medications Current Medications Medications (Trade) Dose Ordered Sig/Luz Maria Route PRN Reason Start Time Stop Time Status Last Admin Dose Admin Dextrose (Dextrose 50%) 25 ml Q30M PRN IV Hypoglycemia 11/03/19 18:45 12/03/19 18:44 Dextrose (Dextrose 50%) 50 ml Q30M PRN IV Hypoglycemia 11/03/19 18:45 12/03/19 18:44 11/04/19 06:26 Dextrose/Sodium Chloride 1,000 ml @ 75 mls/hr [id number] IV 11/04/19 07:16 12/04/19 07:15 11/04/19 07:41 Heparin Sodium (Porcine) (Heparin 5000 units/ml) 5,000 units EVERY 12 HOURS SUBQ 11/03/19 21:00 12/03/19 20:59 11/04/19 09:16 Insulin Aspart (NovoLOG) BEFORE MEALS AND HS SUBQ 11/03/19 21:00 12/03/19 20:59 11/03/19 21:26 Pantoprazole (Protonix) 40 mg DAILY IVP 11/04/19 09:00 12/04/19 08:59 11/04/19 09:16 Piperacillin Sod/ Tazobactam Sod 3.375 gm/Sodium Chloride 110 ml @ 27.5 mls/hr EVERY 8 HOURS IVPB 11/03/19 22:00 11/08/19 21:59 11/04/19 13:16 Vancomycin HCl (Vanco rx to dose) 1 ea DAILY PRN MISC Per rx protocol 11/03/19 18:45 12/03/19 18:44 Vancomycin HCl 500 mg/Dextrose 110 ml @ 110 mls/hr Q24H IVPB 11/04/19 20:00 11/09/19 19:59 Assessment/Plan Problem List: (1) Severe protein-calorie malnutrition Assessment & Plan: DAILY ESTIMATED NEEDS: Needs based on Wound, advanced age, DM 51.8kg 25-35 kcals/kg 3536-0727 total kcals 1.25-1.5 g protein/kg 65-78 g total protein 25-30ml/kcal mL/kg 5807-7213 total fluid mLs NUTRITION DIAGNOSIS: Altered nutrition related lab values r/t diabetes as evidenced by A1C 7.4, U glu 2+, w/ hypoglycemic event (30*) CURRENT DIET: CCHO MED puree PO DIET RECOMMENDATIONS: Liberalized Regular diet (texture per [employer] CONSULTANT) ADDITIONAL RECOMMENDATIONS: 1) W/ poor po intake, rec GLUCERNA as HPN w/ meals 2) F/up w/ WC eval-> rec JAGUAR BID 3) Calibrated bed scale weight SNF wt: 114lbs, Bed wt: 116lbs 4) [employer] CONSULTANT eval for texture 5) HS snacks nightly to prevent hypoglycemia + Snacks in b/w meals ICD Codes: E43 - Unspecified severe protein-calorie malnutrition SNOMED: 925595112, 454014702, 698432658 (2) Decubital ulcer Assessment & Plan: Pt presented on admission with 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 Base of wound has 90% fibrinous slough,which was removed with friction with Gauze non excisional debridement when necessary (L)2cm x(W)2.5cm x (D)0.5cm . Borders macerated with surrounding erythema. No elevation in skin temp noted. R and L heels are both boggy with non-blanching erythema. Non-blanching erythema sacrum with small sheared area noted. Surrounding hyperpigmentation from previous wound. Pt noted to have generalized pimple -like rash,with burrowing noted to R and L lateral axillae,web spaces of both hands,chest ,both flanks, both groin areas, and both feet. Pt noted to be aggressively scratching at skin. possible scabies. ID eval Tx.Plan: Cleanse wound jasbir L tibia with Saline. Apply Therahoney. Apply Cavilon Skin Barrier periwound.Cover with Optifoam leanng. Daily and PRN. Apply Moisture Barrier Paste to Sacrum. Cover with Optifoam drsg. Change every 3 days and prn. Apply Cavilon Skin Barrier to both heels. Cover each heel with Optifoam drsg. Change every 7 days and prn. Reposition at least every 2hours or as tolerated. Off-load heels with pillow. Nutritional optimization Will monitor and follow with recommendations ICD Codes: L89.90 - Pressure ulcer of unspecified site, unspecified stage SNOMED: 497562168 (3) Toxic metabolic encephalopathy Assessment & Plan: Abnormal labs, altered mental status, hypoglycemia IV fluids Dextrose Trend labs Glucose checks We will follow with recommendations thank you ICD Codes: G92 - Toxic encephalopathy SNOMED: 109749072 Ibrahima Connors Nov 04, 2019 15:04
[2019-11-04 16:00] VITALS: BP 104/60
--- NOTE | 2019-11-04 19:07 | NUR ---
HAND-OFF: Report given to RAJIV Emmanuel.
--- NOTE | 2019-11-04 19:45 | NUR ---
NURSE NOTES: Received report from RAJIV Alvarez. Patient is in bed, awake and responsive to verbal and tactile stimuli. Breathing regular and unlabored with no s/s of SOB noted at this time. Patient's IV is intact, Y-sited with primary fluids as well as antibiotics and is running the fluids at prescribed rate. Patient remains on isolation. Bed is in lowest position, breaks engaged, and call light within reach at all times. Will continue to monitor.
[2019-11-04 20:00] VITALS: BP 115/54
[2019-11-04] MEDS: Vancomycin 500mg/D5W 110ml IVPB SCH ×2 (20:38)
[2019-11-04] MEDS ORDERED: Tubing IV Secondary IV ONE (21:09)
[2019-11-04] MEDS ORDERED: NS 275ml ONE (21:09)
[2019-11-05] VITALS: BP 118/52
[2019-11-05] MEDS: D5NS 1,000 ML IV SCH (00:01)
[2019-11-05 04:00] VITALS: BP 136/65
--- NOTE | 2019-11-05 04:45 | Consultation ---
DATE OF CONSULTATION: 11/03/2019 CARDIOLOGY CONSULTATION CONSULTING PHYSICIAN: Kevin Zapata M.D. REQUESTING PHYSICIAN: Maximino Harmon M.D. REASON FOR CONSULTATION: Hypothermia and bradycardia. HISTORY OF PRESENT ILLNESS: This is an 89-year-old [place] female resides at an assisted living facility. She was altered in mentation and paramedics were summoned. She was noted to be hypoglycemic and given a dose of D50. She was unable to give reliable history due to her underlying dementia. She apparently is on insulin as well as an oral hypoglycemic agents. In the emergency room, vital signs were unstable including a temperature of 93 prompting this consultation. The patient was noted to have a sinus rhythm. There were episodes of slow heart rate noted although strips are not available. PAST MEDICAL HISTORY: Includes hypertension, type 2 diabetes mellitus, cerebrovascular disease with dementia. MEDICATIONS: Reviewed. ALLERGIES: None. FAMILY HISTORY: Not known. SOCIAL HISTORY: Not obtainable. REVIEW OF SYSTEMS: Not obtainable due to altered mentation and dementia. Available data from assisted living records is outlined above. PHYSICAL EXAMINATION: GENERAL: She is poorly kempt, withdrawn but alert. VITAL SIGNS: In the emergency room, blood pressure 162/75, heart rate 98, respiratory rate 17 on arrival. Presently blood pressure is 149/78, pulse 96, respiratory rate 22. HEENT: Temporal wasting. Wounds are pictured. NECK: Supple. Mucous membranes dry. LUNGS: Clear. CARDIAC: Regular rhythm and rate. Normal S1, S2 with a 1/6 systolic murmur at base. ABDOMEN: Soft EXTREMITIES: There is no edema. LABORATORY DATA: White count is 6.7, hemoglobin 10.9. Troponin negative. Lactic acid 1.3. BUN 22, creatinine 1.2. Potassium 3.8. Sodium 142, bicarb 27, albumin 3. IMPRESSION: 1. Hypothermia likely due to exposure. 2. Transient bradycardia due to above. 3. Decubitus. 4. Mild protein-calorie malnutrition. 5. History of hypertension and hypertensive heart disease. 6. Hypoglycemia due to 7. Type 2 diabetes mellitus. PLAN: 1. Volume support. 2. Warming blankets and Ximena Hugger. 3. Thyroid panel and cortisol level. 4. Hold parameters for antihypertensive therapy. 5. No oral hypoglycemics. 6. Insulin coverage by sliding scale only . 7. DVT prophylaxis and skin care. Kevin Zapata M.D. DR: Maria Isabel JOB#: [id number] CC:
--- NOTE | 2019-11-05 05:00 | Progress Note ---
DATE: 11/04/2019 CARDIOLOGY PROGRESS NOTE SUBJECTIVE: The patient seen and evaluated. Case discussed with nursing staff. The patient was treated today for scabies. She has also seen by the surgeon and wound care has been initiated. Temperature has normalized, remains withdrawn and poorly interactive, but alert. OBJECTIVE: VITAL SIGNS: Blood pressure 104/60, pulse 65, respirations 18, afebrile, and temperature 97. Wound as pictured. LUNGS: Clear. Mucous membranes dry. CARDIAC: Regular. Normal S1, S2 with a 1/6 systolic murmur at apex. ABDOMEN: Soft. EXTREMITIES: No edema. IMPRESSION: 1. Hypothermia exposure. 2. [id number] protein-calorie malnutrition. 3. Possible sepsis. 4. Scabies. 5. Hypovolemia and dehydration. 6. Hypoglycemia, resolved. PLAN: 1. Continue hydration with saline and dextrose. 2. Empiric antimicrobials. 3. Skin care, Permethrin therapy per Infectious Disease provider relations consultant. 4. Hold antihypertensives. 5. Protein supplement. 6. DVT prophylaxis. Kevin Zapata M.D. DR: LO JOB#: [id number] CC:
[2019-11-05] MEDS: Piperacillin/Tazobactam 3.375 GM in NS 110 ML IVPB SCH ×3 (06:05→22:37)
[2019-11-05] MEDS: NovoLOG Insulin Flexpen SUBQ SCH ×4 (06:06→21:26)
--- NOTE | 2019-11-05 07:19 | NUR ---
HAND-OFF: Report given to RAJIV Solis. Patient in stable condition.
--- NOTE | 2019-11-05 07:24 | NUR ---
NURSE NOTES: Received pt in bed, sleeping. No s/s of distress/pain. Room air. IV on L wrist 22g intact and patent, y-sided, running D5NS @75 ml/hr and zosyn. Bed in the lowest, locked, and alarm on. Call light within reach. Will continue to monitor
[2019-11-05 07:36] LABS: BASOPHILS % (AUTO) 0.8 % (0.0-2.0); EOSINOPHILS % (AUTO) 3.7 % (0.0-3.0); HEMATOCRIT 28.7 % (37.0-47.0); HEMOGLOBIN 9.2 G/DL (12.0-16.0); LYMPHOCYTES % (AUTO) 25.5 % (20.0-45.0); MEAN CORPUSCULAR VOLUME 92 FL (80-99); MONOCYTES % (AUTO) 8.1 % (1.0-10.0); NEUTROPHILS % (AUTO) 61.9 % (45.0-75.0); PLATELET COUNT 289 K/UL (150-450); RED BLOOD COUNT 3.12 M/UL (4.20-5.40); RED CELL DISTRIBUTION WIDTH 13.1 % (11.6-14.8); WHITE BLOOD COUNT 7.4 K/UL (4.8-10.8)
[2019-11-05 08:00] VITALS: BP 143/63
[2019-11-05 08:00] LABS: ALANINE AMINOTRANSFERASE 19 U/L (12-78); ALBUMIN 2.4 G/DL (3.4-5.0); ALBUMIN/GLOBULIN RATIO 0.5 (1.0-2.7); ALKALINE PHOSPHATASE 48 U/L (46-116); AMYLASE 48 U/L (25-115); ANION GAP 8 mmol/L (5-15); ASPARTATE AMINO TRANSFERASE 32 U/L (15-37); BILIRUBIN,TOTAL 0.4 MG/DL (0.2-1.0); BLOOD UREA NITROGEN 16 mg/dL (7-18); CALCIUM 7.8 MG/DL (8.5-10.1); CARBON DIOXIDE 24 MMOL/L (21-32); CHLORIDE 111 MMOL/L (98-107); CREATININE 1.3 MG/DL (0.55-1.30); POTASSIUM 3.7 MMOL/L (3.5-5.1); SODIUM 143 MMOL/L (136-145)
[2019-11-05] MEDS: Pantoprazole Inj IVP SCH (08:19)
[2019-11-05] MEDS: Heparin 5000 units/ml inj SUBQ SCH ×2 (08:20→21:26)
[2019-11-05 12:00] VITALS: BP 117/58
--- NOTE | 2019-11-05 14:59 | General Progress Note ---
Assessment/Plan Problem List: (1) Sepsis ICD Codes: A41.9 - Sepsis, unspecified organism SNOMED: 06346234 (2) Toxic metabolic encephalopathy ICD Codes: G92 - Toxic encephalopathy SNOMED: 845393721 (3) Hypothermia ICD Codes: T68.XXXA - Hypothermia, initial encounter SNOMED: 764886418 (4) Decubital ulcer ICD Codes: L89.90 - Pressure ulcer of unspecified site, unspecified stage SNOMED: 851942150 (5) Hypoglycemia associated with type 2 diabetes mellitus ICD Codes: E11.649 - Type 2 diabetes mellitus with hypoglycemia without coma SNOMED: 955305993, 69790454 Status: stable Assessment/Plan: dc ivf monitor BS iv abx id eval pending follow up cultures Subjective ROS Limited/Unobtainable: No Constitutional: Reports: malaise, weakness HEENT: Reports: no symptoms Cardiovascular: Reports: no symptoms Respiratory: Reports: no symptoms Gastrointestinal/Abdominal: Reports: no symptoms Genitourinary: Reports: no symptoms Neurologic/Psychiatric: Reports: pre-existing deficit Endocrine: Reports: no symptoms Allergies: Coded Allergies: No Known Allergies (Unverified , 11/03/19) Subjective hypoglycemia better. remains on ivf. CT negative for osteo. labile po intake Objective Last 24 Hour Vital Signs Date Time Temp Pulse Resp B/P (MAP) Pulse Ox O2 Delivery O2 Flow Rate FiO2 11/05/19 12:00 83 11/05/19 12:00 97.5 69 17 117/58 (77) 95 11/05/19 08:58 Room Air 11/05/19 08:00 97.5 76 18 143/63 (89) 96 11/05/19 08:00 67 11/05/19 04:00 63 11/05/19 04:00 98.7 66 17 136/65 (88) 94 11/05/19 00:00 70 11/05/19 00:00 98.7 74 18 118/52 (74) 94 11/04/19 21:00 Room Air 11/04/19 20:00 71 11/04/19 20:00 98.9 70 17 115/54 (74) 94 11/04/19 16:00 65 11/04/19 16:00 97.0 64 19 104/60 (75) 95 Intake and Output 11/04/19 11/05/19 19:00 07:00 Intake Total 260 ml 570 ml Output Total 540 ml Balance -280 ml 570 ml Intake Oral 260 ml 120 ml IV Total 450 ml Output Urine Total 540 ml # Voids 3 3 Laboratory Tests 11/05/19 06:13: White Blood Count 7.4#, Red Blood Count 3.12L, Hemoglobin 9.2L, Hematocrit 28.7L , Mean Corpuscular Volume 92, Mean Corpuscular Hemoglobin 29.4, Mean Corpuscular Hemoglobin Concent 31.9L, Red Cell Distribution Width 13.1, Platelet Count 289, Mean Platelet Volume 5.4L, Neutrophils (%) (Auto) 61.9, Lymphocytes (%) (Auto) 25.5, Monocytes (%) (Auto) 8.1, Eosinophils (%) (Auto) 3.7H, Basophils (%) (Auto) 0.8, Erythrocyte Sedimentation Rate 114H, Prothrombin Time 10.3, Prothromb Time International Ratio 1.0, Activated Partial Thromboplast Time 32, Sodium Level 143, Potassium Level 3.7, Chloride Level 111H, Carbon Dioxide Level 24, Anion Gap 8, Blood Urea Nitrogen 16, Creatinine 1.3, Estimat Glomerular Filtration Rate , Glucose Level 163#H, Calcium Level 7.8L, Total Bilirubin 0.4, Aspartate Amino Transf (AST/SGOT) 32, Alanine Aminotransferase (ALT/SGPT) 19, Alkaline Phosphatase 48, C-Reactive Protein, Quantitative 7.0H, Total Protein 6.9, Albumin 2.4L, Globulin 4.5, Albumin/Globulin Ratio 0.5L, Amylase Level 48, Lipase 122 Height (Feet): 5 Height (Inches): 1.00 Weight (Pounds): 100 General Appearance: WD/WN, alert, confused Neck: supple Cardiovascular: regular rhythm Respiratory/Chest: chest wall non-tender, lungs clear, normal breath sounds, no respiratory distress Abdomen: normal bowel sounds, non tender, soft, no organomegaly, no mass Edema: no edema noted Arm (L), no edema noted Arm (R), no edema noted Leg (L), no edema noted Leg (R), no edema noted Pedal (L), no edema noted Pedal (R), no edema noted Generalized Neurologic: alert Maximino Harmon MD Nov 05, 2019 14:59
[2019-11-05 16:00] VITALS: BP 120/59
--- NOTE | 2019-11-05 19:28 | NUR ---
HAND-OFF: Report given to RAJIV Pablo.
--- NOTE | 2019-11-05 19:29 | NUR ---
NURSE NOTES: pt is forgetful and AO x1 Wolof Speaker. pt is resting on the bed, trying to get out from the bed at the same time. IV left wrist 22G is clean intact, and patent. no SOB and no dysrythmia reported from previous shift. pt is in RA and O2 Sat is at 97%. pt states no pain at this moment. bed at the lowest position, alarmed, and locked. call light within reach. will continue to monitor pt with plan of care.
[2019-11-05 20:00] VITALS: BP 143/57
--- NOTE | 2019-11-05 20:25 | Surgery Progress Note ---
Surgery Progress Note Subjective Additional Comments leukocytosis resolved exam stable dressings changed and much improved odor and appearance. Objective Last 24 Hour Vital Signs Date Time Temp Pulse Resp B/P (MAP) Pulse Ox O2 Delivery O2 Flow Rate FiO2 11/05/19 16:00 98.6 72 18 120/59 (79) 96 11/05/19 16:00 81 11/05/19 12:00 83 11/05/19 12:00 97.5 69 17 117/58 (77) 95 11/05/19 08:58 Room Air 11/05/19 08:00 97.5 76 18 143/63 (89) 96 11/05/19 08:00 67 11/05/19 04:00 63 11/05/19 04:00 98.7 66 17 136/65 (88) 94 11/05/19 00:00 70 11/05/19 00:00 98.7 74 18 118/52 (74) 94 11/04/19 21:00 Room Air I&O Intake and Output 11/04/19 11/05/19 19:00 07:00 Intake Total 260 ml 570 ml Output Total 540 ml Balance -280 ml 570 ml Intake Oral 260 ml 120 ml IV Total 450 ml Output Urine Total 540 ml # Voids 3 3 Dressing: saturated Wound: other Drains: other Cardiovascular: RSR Respiratory: decreased breath sounds Abdomen: soft, present bowel sounds Extremities: other Laboratory Tests Test 11/05/19 06:13 White Blood Count 7.4 K/UL (4.8-10.8) # Red Blood Count 3.12 M/UL (4.20-5.40) L Hemoglobin 9.2 G/DL (12.0-16.0) L Hematocrit 28.7 % (37.0-47.0) L Mean Corpuscular Volume 92 FL (80-99) Mean Corpuscular Hemoglobin 29.4 PG (27.0-31.0) Mean Corpuscular Hemoglobin Concent 31.9 G/DL (32.0-36.0) L Red Cell Distribution Width 13.1 % (11.6-14.8) Platelet Count 289 K/UL (150-450) Mean Platelet Volume 5.4 FL (6.5-10.1) L Neutrophils (%) (Auto) 61.9 % (45.0-75.0) Lymphocytes (%) (Auto) 25.5 % (20.0-45.0) Monocytes (%) (Auto) 8.1 % (1.0-10.0) Eosinophils (%) (Auto) 3.7 % (0.0-3.0) H Basophils (%) (Auto) 0.8 % (0.0-2.0) Erythrocyte Sedimentation Rate 114 MM/HR (0-30) H Prothrombin Time 10.3 SEC (9.30-11.50) Prothromb Time International Ratio 1.0 (0.9-1.1) Activated Partial Thromboplast Time 32 SEC (23-33) Sodium Level 143 MMOL/L (136-145) Potassium Level 3.7 MMOL/L (3.5-5.1) Chloride Level 111 MMOL/L (98-107) H Carbon Dioxide Level 24 MMOL/L (21-32) Anion Gap 8 mmol/L (5-15) Blood Urea Nitrogen 16 mg/dL (7-18) Creatinine 1.3 MG/DL (0.55-1.30) Estimat Glomerular Filtration Rate mL/min (>60) Glucose Level 163 MG/DL (74-106) #H Calcium Level 7.8 MG/DL (8.5-10.1) L Total Bilirubin 0.4 MG/DL (0.2-1.0) Aspartate Amino Transf (AST/SGOT) 32 U/L (15-37) Alanine Aminotransferase (ALT/SGPT) 19 U/L (12-78) Alkaline Phosphatase 48 U/L (46-116) C-Reactive Protein, Quantitative 7.0 mg/dL (0.00-0.90) H Total Protein 6.9 G/DL (6.4-8.2) Albumin 2.4 G/DL (3.4-5.0) L Globulin 4.5 g/dL Albumin/Globulin Ratio 0.5 (1.0-2.7) L Amylase Level 48 U/L (25-115) Lipase 122 U/L (73-393) Plan Problems: (1) Severe protein-calorie malnutrition Assessment & Plan: DAILY ESTIMATED NEEDS: Needs based on Wound, advanced age, DM 51.8kg 25-35 kcals/kg 8757-8252 total kcals 1.25-1.5 g protein/kg 65-78 g total protein 25-30ml/kcal mL/kg 2228-1178 total fluid mLs NUTRITION DIAGNOSIS: Altered nutrition related lab values r/t diabetes as evidenced by A1C 7.4, U glu 2+, w/ hypoglycemic event (30*) CURRENT DIET: CCHO MED puree PO DIET RECOMMENDATIONS: Liberalized Regular diet (texture per SUGAR TRUCKER) ADDITIONAL RECOMMENDATIONS: 1) W/ poor po intake, rec GLUCERNA as HPN w/ meals 2) F/up w/ WC eval-> rec JAGUAR BID 3) Calibrated bed scale weight SNF wt: 114lbs, Bed wt: 116lbs 4) SUGAR TRUCKER eval for texture 5) HS snacks nightly to prevent hypoglycemia + Snacks in b/w meals (2) Decubital ulcer Assessment & Plan: Pt presented on admission with 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 Base of wound has 90% fibrinous slough,which was removed with friction with Gauze non excisional debridement when necessary (L)2cm x(W)2.5cm x (D)0.5cm . Borders macerated with surrounding erythema. No elevation in skin temp noted. R and L heels are both boggy with non-blanching erythema. Non-blanching erythema sacrum with small sheared area noted. Surrounding hyperpigmentation from previous wound. Pt noted to have generalized pimple -like rash,with burrowing noted to R and L lateral axillae,web spaces of both hands,chest ,both flanks, both groin areas, and both feet. Pt noted to be aggressively scratching at skin. possible scabies. ID eval Tx.Plan: Cleanse wound jasbir L tibia with Saline. Apply Therahoney. Apply Cavilon Skin Barrier periwound.Cover with Optifoam drsg. Daily and PRN. Apply Moisture Barrier Paste to Sacrum. Cover with Optifoam drsg. Change every 3 days and prn. Apply Cavilon Skin Barrier to both heels. Cover each heel with Optifoam drsg. Change every 7 days and prn. Reposition at least every 2hours or as tolerated. Off-load heels with pillow. Nutritional optimization Will monitor and follow with recommendations (3) Toxic metabolic encephalopathy Assessment & Plan: Abnormal labs, altered mental status, hypoglycemia IV fluids Dextrose Trend labs Glucose checks We will follow with recommendations thank you Ibrahima Connors Nov 05, 2019 20:25
[2019-11-05] MEDS: Vancomycin 500mg/D5W 110ml IVPB SCH ×2 (20:38)
--- NOTE | 2019-11-05 22:40 | NUR ---
NURSE NOTES: Received patient from Radha RN. Patient in bed, on room air, no signs of respiratory distress. Bed in low position, locked, bed alarm on, call light within reach.
--- NOTE | 2019-11-05 22:53 | NUR ---
HAND-OFF: Report given to erickson VANCE. pt is in stable condition.
[2019-11-06] VITALS (7 sets, daily range): BP systolic 124–161; BP diastolic 56–106
--- NOTE | 2019-11-06 02:00 | Progress Note ---
DATE: 11/05/2019 CARDIOLOGY PROGRESS NOTE SUBJECTIVE: Temperature has normalized. The patient is not hypothermic anymore. More alert. OBJECTIVE: VITAL SIGNS: Blood pressure 117/58, pulse 69, respirations 17, oxygen saturation on room air 94 to 96%. LUNGS: Clear. CARDIAC: Regular. Normal S1, S2 with a 1/6 systolic murmur at base. ABDOMEN: Soft. EXTREMITIES: No edema. LABORATORY DATA: White count 7.4, hemoglobin 9.2. Glucose 163, albumin 2.4, BUN 16 creatinine 1.3. Cultures remain negative. IMPRESSION: 1. Hypothermia, recovered. 2. Moderate to severe protein-calorie malnutrition. 3. Scabies. 4. Decubitus. 5. Hypovolemia and dehydration, corrected. 6. Hypoglycemia due to medications resolved. PLAN: 1. Antimicrobials. 2. Skin care. 3. Hold antihypertensives. 4. Avoid oral hypoglycemics for now. 5. DVT prophylaxis. 6. Protein supplement. 7. Wound care placement. Kevin Zapata M.D. DR: TALHA JOB#: [id number] CC:
[2019-11-06] MEDS: Piperacillin/Tazobactam 3.375 GM in NS 110 ML IVPB SCH ×3 (05:44→22:31)
[2019-11-06] MEDS: NovoLOG Insulin Flexpen SUBQ SCH ×4 (05:52→20:50)
--- NOTE | 2019-11-06 07:30 | NUR ---
HAND-OFF: Report given to Pam VANCE. Plan of care endorsed.
--- NOTE | 2019-11-06 07:30 | NUR ---
NURSE NOTES: I received the patient resting in bed. Bed in the lowest position, wheels locked, and bed alarm activated. Patient does not display any signs of distress or SOB. I will continue to monitor and implement care.
[2019-11-06] MEDS: Pantoprazole Inj IVP SCH (08:01)
[2019-11-06] MEDS: Heparin 5000 units/ml inj SUBQ SCH ×2 (08:01→20:49)
--- NOTE | 2019-11-06 09:03 | General Progress Note ---
Assessment/Plan Problem List: (1) Sepsis ICD Codes: A41.9 - Sepsis, unspecified organism SNOMED: 38850407 (2) Toxic metabolic encephalopathy ICD Codes: G92 - Toxic encephalopathy SNOMED: 230022614 (3) Hypothermia ICD Codes: T68.XXXA - Hypothermia, initial encounter SNOMED: 744773890 (4) Decubital ulcer ICD Codes: L89.90 - Pressure ulcer of unspecified site, unspecified stage SNOMED: 511233698 (5) Hypoglycemia associated with type 2 diabetes mellitus ICD Codes: E11.649 - Type 2 diabetes mellitus with hypoglycemia without coma SNOMED: 948966133, 11082070 Status: stable Assessment/Plan: monitor BS iv abx-?dc follow up cultures. negative so far- doubt infection pt/ot dc planning to snf tomorrow Subjective ROS Limited/Unobtainable: No Constitutional: Reports: malaise, weakness HEENT: Reports: no symptoms Cardiovascular: Reports: no symptoms Respiratory: Reports: no symptoms Gastrointestinal/Abdominal: Reports: no symptoms Genitourinary: Reports: no symptoms Neurologic/Psychiatric: Reports: pre-existing deficit Endocrine: Reports: no symptoms Hematologic/Lymphatic: Reports: no symptoms Allergies: Coded Allergies: No Known Allergies (Unverified , 11/03/19) All Systems: reviewed and negative except above Subjective BS stable of ivf. temperature better. cxr noted. ua neg. cultures neg. Objective Last 24 Hour Vital Signs Date Time Temp Pulse Resp B/P (MAP) Pulse Ox O2 Delivery O2 Flow Rate FiO2 11/06/19 08:22 161/81 (107) 11/06/19 08:00 97.8 80 15 152/106 (121) 95 11/06/19 07:51 Room Air 11/06/19 04:00 98.1 64 18 137/56 (83) 96 11/06/19 04:00 74 11/06/19 00:00 64 11/06/19 00:00 98.0 71 18 131/56 (81) 94 11/05/19 21:00 Room Air 11/05/19 20:00 97.9 71 18 143/57 (85) 95 11/05/19 20:00 63 11/05/19 16:00 98.6 72 18 120/59 (79) 96 11/05/19 16:00 81 11/05/19 12:00 83 12/10/19 12:00 97.5 69 17 117/58 (77) 95 Intake and Output 11/05/19 11/06/19 18:59 06:59 Intake Total 820.0 ml Balance 820.0 ml IV Total 520.0 ml Other 300 ml # Voids 6 Height (Feet): 5 Height (Inches): 1.00 Weight (Pounds): 49 Objective General Appearance: WD/WN, alert, confused Neck: supple Cardiovascular: regular rhythm Respiratory/Chest: chest wall non-tender, lungs clear, normal breath sounds, no respiratory distress Abdomen: normal bowel sounds, non tender, soft, no organomegaly, no mass Edema: no edema noted Arm (L), no edema noted Arm (R), no edema noted Leg (L), no edema noted Leg (R), no edema noted Pedal (L), no edema noted Pedal (R), no edema noted Generalized Neurologic: alert Maximino Harmon MD Nov 06, 2019 09:03
--- NOTE | 2019-11-06 09:08 | NUR ---
TRANSFER TO FLOOR: Patient transferred to [facility], per Dr. Zapata. Report given to Glo Knutson RN. Belongings and medications given to Glo Knutson RN. Nicholas Padilla, son, informed of transfer.
--- NOTE | 2019-11-06 11:19 | NUR ---
HAND-OFF: Report given to RAJIV BLACKMON.
--- NOTE | 2019-11-06 11:20 | NUR ---
NURSE NOTES: Received patient from Russ RN,patient alert ,respirations unlabored IV left arm intact,patient resting.bed alarm on,call light within reach.
[2019-11-06] MEDS ORDERED: NovoLOG Insulin Flexpen SUBQ SCH ×2 (11:30→21:00)
--- NOTE | 2019-11-06 12:55 | NUR ---
CASE MANAGEMENT:REVIEW 11/06/19 SI: SEPSIS. HYPOTHERMIA. MALNUTRITION SCABIES. DECUBITUS 97.8 80 15 152/106 95% ON RA IS: IV VANCOMYCIN Q24 IV ZOSYN Q8HRS HEPARIN SQ Q12 : MED/SURG STATUS 4 EAST DCP: FROM [facility]
[2019-11-06] MEDS ORDERED: Piperacillin/Tazobactam 3.375 GM in NS 110 ML IVPB SCH ×2 (14:00→22:00)
--- NOTE | 2019-11-06 15:15 | Consultation ---
DATE OF CONSULTATION: 11/06/2019 INFECTIOUS DISEASE CONSULTATION CONSULTING PHYSICIAN: Johnathan Caldwell M.D. REFERRING PHYSICIAN: Maximino Harmon M.D. REASON FOR CONSULTATION: Left leg ulcer and cellulitis. HISTORY OF PRESENT ILLNESS: This is an 89-year-old lady with history of diabetes and hypertension, who came from a fdc with hypoglycemia. She was also hypothermic. She was found to have a left leg ulcer and an Infectious Disease consultation has been obtained for antibiotics. PAST MEDICAL HISTORY: 1. History of diabetes. 2. Hypertension. SOCIAL HISTORY: No history of smoking, alcohol, or drug use. FAMILY HISTORY: Unknown. REVIEW OF SYSTEMS: Unable to obtain currently. MEDICATIONS: As an inpatient, she is on Protonix, IV vancomycin, subcutaneous, heparin, Zosyn, and insulin. ALLERGIES: No known drug allergies. PHYSICAL EXAMINATION: VITAL SIGNS: Temperature 97.8, T-max of 98.9, pulse 80, respiratory rate 15, and blood pressure 161/81. O2 saturation of 95%. HEENT: Pupils are equally reactive to light and accommodation. Mouth appears clean without thrush. NECK: Supple. No adenopathy. No JVD. CARDIOVASCULAR: Regular rate and rhythm. No murmurs. LUNGS: Clear to auscultation bilaterally. No crackles. No wheezes. ABDOMEN: Soft and nontender. No organomegaly. EXTREMITIES: No cyanosis, no clubbing, no edema. Left leg ulcer noted in the mid leg on the anterior area. LABORATORY AND DIAGNOSTIC DATA: White count of 17.6 on , white count of 7.4 on 11/05/2019, hemoglobin 9.2, hematocrit 28.7, MCV 92, platelet count of 289,000, neutrophils of 61%. Sodium 143, potassium 3.7, chloride 111, bicarb 24, BUN 16, and creatinine 1.3. Glucose 163. Calcium 7.8. Total bilirubin 0.4, AST 32, ALT 19, and alkaline phosphatase 48. C-reactive protein 7. Total protein 6.9, albumin 2.4. Lipase of 122. UA showing 0 to 2 white cells. Blood cultures are negative on 11/03/2019. Rectal swab was negative on 11/03/2019. Nasal swab was negative for MRSA on 11/03/2019. Chest x-ray showing lung nodule. CT of the left leg showing ulceration. No definite discrete fluid collection to suggest abscess. Edema noted with cellulitis. No osteomyelitis. ASSESSMENT: This is an 89-year-old lady with history of diabetes and hypertension, who comes in with hypoglycemia and is found to have, 1. Left leg ulcer with surrounding cellulitis. CT is negative for osteomyelitis. 2. Diabetes. 3. Hypertension. PLAN: 1. Continue IV vancomycin and Zosyn. 2. We will order left leg wound cultures. 3. We will follow up cultures and adjust antibiotics accordingly. I would like to thank Dr. Harmon for this consultation. Johnathan Caldwell M.D. DR: OUMOU JOB#: [id number] CC:
--- NOTE | 2019-11-06 17:01 | Surgery Progress Note ---
Surgery Progress Note Subjective Additional Comments No acute events. Comfortable. Stable. No nausea vomiting fever chills. States no pain. States she is doing well. Objective Last 24 Hour Vital Signs Date Time Temp Pulse Resp B/P (MAP) Pulse Ox O2 Delivery O2 Flow Rate FiO2 11/06/19 16:00 97.8 74 20 140/67 (91) 96 11/06/19 12:00 97.3 76 20 141/72 (95) 96 11/06/19 08:22 161/81 (107) 11/06/19 08:00 97.8 80 15 152/106 (121) 95 11/06/19 07:51 Room Air 11/06/19 04:00 98.1 64 18 137/56 (83) 96 11/06/19 04:00 74 11/06/19 00:00 64 11/06/19 00:00 98.0 71 18 131/56 (81) 94 11/05/19 21:00 Room Air 11/05/19 20:00 97.9 71 18 143/57 (85) 95 11/05/19 20:00 63 I&O Intake and Output 11/05/19 11/06/19 19:00 07:00 Intake Total 820.0 ml Balance 820.0 ml IV Total 520.0 ml Other 300 ml # Voids 6 Dressing: saturated Wound: other Drains: other Cardiovascular: RSR Respiratory: decreased breath sounds Abdomen: soft, present bowel sounds Extremities: no cyanosis, other Plan Problems: (1) Severe protein-calorie malnutrition Assessment & Plan: DAILY ESTIMATED NEEDS: Needs based on Wound, advanced age, DM 51.8kg 25-35 kcals/kg 2238-7156 total kcals 1.25-1.5 g protein/kg 65-78 g total protein 25-30ml/kcal mL/kg 6190-3196 total fluid mLs NUTRITION DIAGNOSIS: Altered nutrition related lab values r/t diabetes as evidenced by A1C 7.4, U glu 2+, w/ hypoglycemic event (30*) CURRENT DIET: CCHO MED puree PO DIET RECOMMENDATIONS: Liberalized Regular diet (texture per BROACH GRINDER) ADDITIONAL RECOMMENDATIONS: 1) W/ poor po intake, rec GLUCERNA as HPN w/ meals 2) F/up w/ WC eval-> rec JAGUAR BID 3) Calibrated bed scale weight SNF wt: 114lbs, Bed wt: 116lbs 4) BROACH GRINDER eval for texture 5) HS snacks nightly to prevent hypoglycemia + Snacks in b/w meals (2) Decubital ulcer Assessment & Plan: Pt presented on admission with 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 Base of wound has 90% fibrinous slough,which was removed with friction with Gauze non excisional debridement when necessary (L)2cm x(W)2.5cm x (D)0.5cm . Borders macerated with surrounding erythema. No elevation in skin temp noted. R and L heels are both boggy with non-blanching erythema. Non-blanching erythema sacrum with small sheared area noted. Surrounding hyperpigmentation from previous wound. Pt noted to have generalized pimple -like rash,with burrowing noted to R and L lateral axillae,web spaces of both hands,chest ,both flanks, both groin areas, and both feet. Pt noted to be aggressively scratching at skin. possible scabies. ID eval Tx.Plan: Cleanse wound jasbir L tibia with Saline. Apply Therahoney. Apply Cavilon Skin Barrier periwound.Cover with Optifoam drsg. Daily and PRN. Apply Moisture Barrier Paste to Sacrum. Cover with Optifoam drsg. Change every 3 days and prn. Apply Cavilon Skin Barrier to both heels. Cover each heel with Optifoam drsg. Change every 7 days and prn. Reposition at least every 2hours or as tolerated. Off-load heels with pillow. Nutritional optimization Will monitor and follow with recommendations (3) Toxic metabolic encephalopathy Assessment & Plan: Abnormal labs, altered mental status, hypoglycemia IV fluids Dextrose Trend labs Glucose checks We will follow with recommendations thank you Ibrahima Connors Nov 06, 2019 17:01
--- NOTE | 2019-11-06 18:32 | NUR ---
NURSE NOTES: Message was left for DR Calderón regarding discharge order Patient lives at home but she has no one to help her when she gets home.Patient has a nephew who lives out of town.Patient states she has gone to [facility] in the past when discharged from the hospital,and she would like to go there if possible.Patient state that is where she usually go to [facility] when being discharge from [facility]. Addendum: 11/06/19 at 9 by LORRI BRUNO RN RN Nurses note not for this patient
--- NOTE | 2019-11-06 19:00 | NUR ---
NURSE NOTES: Patient resting,bed alarm on,call light within reach.
--- NOTE | 2019-11-06 19:29 | NUR ---
HAND-OFF: Report given to TAY VANCE.
--- NOTE | 2019-11-06 19:52 | NUR ---
NURSE NOTES: Received patient awake, confused, resting in bed, comfortable, watching tv.
[2019-11-06] MEDS ORDERED: Vancomycin 500 MG in D5W 110 ML IVPB SCH ×6 (20:00)
[2019-11-06] MEDS: Vancomycin 750mg/NS 275ml IVPB SCH ×2 (20:48)
[2019-11-06] MEDS ORDERED: Heparin 5000 units/ml inj SUBQ SCH ×2 (21:00)
[2019-11-07] VITALS: BP 138/74
--- NOTE | 2019-11-07 | Progress Note ---
DATE: 11/06/2019 CARDIOLOGY PROGRESS NOTE SUBJECTIVE: Temperature remained stable. No hypothermic episodes for the past 48 hours. Blood pressure parameters are stable. Monitored rhythm, sinus. OBJECTIVE: LUNGS: Clear. CARDIAC: Regular. Normal S1, S2. ABDOMEN: Soft. EXTREMITIES: No edema. Wound site is dressed. Has dressing in place. LABORATORY DATA: Cultures remained negative. Sedimentation rate is 114. IMPRESSION: 1. Hypothermia, recovered. 2. Elevated sedimentation rate may be consistent with osteomyelitic process, although imaging studies were not definitive. 3. Hypovolemia and dehydration, has been corrected. 4. Hypertension with slightly elevated blood pressure trend noted. PLAN: 1. Antimicrobials. 2. Skin care. 3. Pain control. 4. DVT prophylaxis. 5. Insulin coverage by sliding scale. 6. Consider MRI of lower extremity. 7. Discontinue IV fluids. Kevin Zapata M.D. DR: JASON/ESTRELLITA JOB#: [id number] CC:
[2019-11-07 04:00] VITALS: BP 130/61
[2019-11-07] MEDS: Piperacillin/Tazobactam 3.375 GM in NS 110 ML IVPB SCH ×3 (04:55→22:30)
[2019-11-07] MEDS: NovoLOG Insulin Flexpen SUBQ SCH ×4 (05:28→20:33)
--- NOTE | 2019-11-07 07:06 | NUR ---
HAND-OFF: Report given to Toro Montoya RN.
--- NOTE | 2019-11-07 07:15 | NUR ---
NURSE NOTES: received report from RAJIV Berman. patient in bed. alert. disoriented. verbally responsive. confused. no respiratory distress noted. no facial grimacing noted. IV on LH 22g. intact. contact isolation. PPE at all times. bed in the lowest position and locked. call light within reach. alarm on. will continue to provide plan of care.
[2019-11-07 08:00] VITALS: BP 110/85
--- NOTE | 2019-11-07 08:42 | General Progress Note ---
Assessment/Plan Problem List: (1) Sepsis ICD Codes: A41.9 - Sepsis, unspecified organism SNOMED: 17177419 (2) Toxic metabolic encephalopathy ICD Codes: G92 - Toxic encephalopathy SNOMED: 298702273 (3) Hypothermia ICD Codes: T68.XXXA - Hypothermia, initial encounter SNOMED: 823591692 (4) Decubital ulcer ICD Codes: L89.90 - Pressure ulcer of unspecified site, unspecified stage SNOMED: 803022075 (5) Hypoglycemia associated with type 2 diabetes mellitus ICD Codes: E11.649 - Type 2 diabetes mellitus with hypoglycemia without coma SNOMED: 630648504, 19192021 Status: stable Assessment/Plan: monitor BS iv abx per id follow up cultures. negative so far- doubt infection pt/ot mri left leg to r/o soteo dc planning to snf tomorrow Subjective ROS Limited/Unobtainable: No Constitutional: Reports: malaise, weakness HEENT: Reports: no symptoms Cardiovascular: Reports: no symptoms Respiratory: Reports: no symptoms Gastrointestinal/Abdominal: Reports: no symptoms Genitourinary: Reports: no symptoms Neurologic/Psychiatric: Reports: no symptoms Endocrine: Reports: no symptoms Hematologic/Lymphatic: Reports: no symptoms Allergies: Coded Allergies: No Known Allergies (Unverified , 11/03/19) All Systems: reviewed and negative except above Subjective BS stable of ivf. temperature better. cxr noted. ua neg. cultures neg. ct leg neg Objective Last 24 Hour Vital Signs Date Time Temp Pulse Resp B/P (MAP) Pulse Ox O2 Delivery O2 Flow Rate FiO2 11/07/19 04:00 98.8 77 17 130/61 (84) 96 11/07/19 00:00 99.3 84 18 138/74 (95) 100 11/06/19 20:10 Room Air 11/06/19 20:00 98.2 80 17 124/59 (80) 94 11/06/19 16:00 97.8 74 20 140/67 (91) 96 11/06/19 12:00 97.3 76 20 141/72 (95) 96 Intake and Output 11/06/19 11/07/19 19:00 07:00 Intake Total 120 ml 680.000 ml Balance 120 ml 680.000 ml Intake Oral 120 ml 240 ml IV Total 440.000 ml # Voids 4 3 Laboratory Tests 11/06/19 19:10: Vancomycin Level Trough 8.3 Height (Feet): 5 Height (Inches): 1.00 Weight (Pounds): 100 Objective General Appearance: WD/WN, alert, confused Neck: supple Cardiovascular: regular rhythm Respiratory/Chest: chest wall non-tender, lungs clear, normal breath sounds, no respiratory distress Abdomen: normal bowel sounds, non tender, soft, no organomegaly, no mass Edema: no edema noted Arm (L), no edema noted Arm (R), no edema noted Leg (L), no edema noted Leg (R), no edema noted Pedal (L), no edema noted Pedal (R), no edema noted Generalized Neurologic: alert Maximino Harmon MD Nov 07, 2019 08:42
[2019-11-07] MEDS ORDERED: Pantoprazole Inj IVP SCH ×2 (09:00)
[2019-11-07] MEDS: Pantoprazole Inj IVP SCH (09:29)
[2019-11-07] MEDS: Heparin 5000 units/ml inj SUBQ SCH ×2 (09:30→20:32)
--- NOTE | 2019-11-07 11:00 | NUR ---
NURSE NOTES: Patient has order of MRI on LT tib w/o contrast. spoke to Mayank,radiology. he would come to pick her up around 1230 to 1300. patient is disoriented, very confused. not able to stay still for the test. RN notified DR. Harmon and waiting for further order.
--- NOTE | 2019-11-07 11:29 | NUR ---
DISCHARGE PLANNING PATIENT HAS BEEN REFERRED TO [facility] T: [phone] *WAITING FOR ACCEPTANCE
[2019-11-07 12:00] VITALS: BP 134/67
--- NOTE | 2019-11-07 12:54 | Infectious Diseases Prog Note ---
Assessment/Plan Assessment/Plan A: 1. Left leg ulcer with surrounding cellulitis. CT is negative for osteomyelitis. 2. Diabetes. 3. Hypertension. 4. Anemia 5. Dementia PLAN: 1. Continue IV vancomycin and Zosyn. 2. We will f/u left leg wound culture & MRI Subjective ROS Limited/Unobtainable: Yes Constitutional: Denies: fever Musculoskeletal: Denies: pain Allergies: Coded Allergies: No Known Allergies (Unverified , 11/03/19) Objective Vital Signs Last 24 Hour Vital Signs Date Time Temp Pulse Resp B/P (MAP) Pulse Ox O2 Delivery O2 Flow Rate FiO2 11/07/19 12:00 97.3 80 18 134/67 (89) 99 11/07/19 09:00 Room Air 11/07/19 08:00 97.7 88 18 110/85 (93) 100 11/07/19 04:00 98.8 77 17 130/61 (84) 96 11/07/19 00:00 99.3 84 18 138/74 (95) 100 11/06/19 20:10 Room Air 11/06/19 20:00 98.2 80 17 124/59 (80) 94 11/06/19 16:00 97.8 74 20 140/67 (91) 96 Height (Feet): 5 Height (Inches): 1.00 Weight (Pounds): 100 General Appearance: no acute distress HEENT: mucous membranes moist Respiratory/Chest: lungs clear Cardiovascular: normal rate Abdomen: soft, non tender Extremities: no edema Skin: ulcers, other - left anne Neurologic/Psychiatric: disoriented Microbiology Date/Time Source Procedure Growth Status 11/06/19 11:10 Leg Left Gram Stain Pending Resulted 11/06/19 11:10 Wound Culture - Preliminary Gram Negative Bacillus 1 Resulted Laboratory Tests Test 11/06/19 19:10 Vancomycin Level Trough 8.3 ug/mL (5.0-12.0) Current Medications Medications (Trade) Dose Ordered Sig/Luz Maria Route PRN Reason Start Time Stop Time Status Last Admin Dose Admin Dextrose (Dextrose 50%) 25 ml Q30M PRN IV Hypoglycemia 11/06/19 09:15 12/03/19 18:44 Dextrose (Dextrose 50%) 50 ml Q30M PRN IV Hypoglycemia 11/06/19 09:15 12/03/19 18:44 Heparin Sodium (Porcine) (Heparin 5000 units/ml) 5,000 units EVERY 12 HOURS SUBQ 11/06/19 21:00 12/03/19 20:59 11/07/19 09:30 Insulin Aspart (NovoLOG) BEFORE MEALS AND HS SUBQ 11/06/19 11:30 12/03/19 20:59 11/07/19 05:28 Pantoprazole (Protonix) 40 mg DAILY IVP 11/07/19 09:00 12/04/19 08:59 11/07/19 09:29 Piperacillin Sod/ Tazobactam Sod 3.375 gm/Sodium Chloride 110 ml @ 27.5 mls/hr EVERY 8 HOURS IVPB 11/06/19 14:00 11/12/19 13:59 11/07/19 04:55 Vancomycin HCl (Vanco rx to dose) 1 ea DAILY PRN MISC Per rx protocol 11/07/19 09:00 12/03/19 18:44 Vancomycin HCl 750 mg/Sodium Chloride 275 ml @ 183.333 mls/hr Q24H IVPB 11/06/19 21:00 11/11/19 20:59 11/06/19 20:48 Harlan Jackson MD Nov 07, 2019 12:54
--- NOTE | 2019-11-07 13:09 | NUR ---
NURSE NOTES: is aware the patient is disoriented and very confused. not able to stay still for the MRI. no new order at this time.
--- NOTE | 2019-11-07 14:02 | NUR ---
11/07. CONCERNING MRI, PT UNABLE TO STAY COMPLETELY STILL FOR 25 MINUTE EXAMDUE TO ADVANCED DEMENTIA. DR. SAUCEDO WAS CALLED BY RAJIV LAURENT TO SEE IF SEDATION CAN BE GIVEN. SYEDB 14:00
[2019-11-07 16:00] VITALS: BP 143/66
--- NOTE | 2019-11-07 19:19 | NUR ---
HAND-OFF: Report given to RAJIV Pond and RAJIV Hwang.
--- NOTE | 2019-11-07 19:20 | NUR ---
NURSE NOTES: Received patient on bed, awake. denies any pain or discomfort. with IV line on the left hand. patent and intact. bed locked and in lowest position. call light and light button within easy reach. will continue plan of care.
--- NOTE | 2019-11-07 19:27 | Surgery Progress Note ---
Surgery Progress Note Subjective Additional Comments no acute events comfortable stable d/c planning Objective Last 24 Hour Vital Signs Date Time Temp Pulse Resp B/P (MAP) Pulse Ox O2 Delivery O2 Flow Rate FiO2 11/07/19 16:00 97.7 75 18 143/66 (91) 95 11/07/19 12:00 97.3 80 18 134/67 (89) 99 11/07/19 09:00 Room Air 11/07/19 08:00 97.7 88 18 110/85 (93) 100 11/07/19 04:00 98.8 77 17 130/61 (84) 96 11/07/19 00:00 99.3 84 18 138/74 (95) 100 11/06/19 20:10 Room Air 11/06/19 20:00 98.2 80 17 124/59 (80) 94 I&O Intake and Output 11/06/19 11/07/19 19:00 07:00 Intake Total 120 ml 680.000 ml Balance 120 ml 680.000 ml Intake Oral 120 ml 240 ml IV Total 440.000 ml # Voids 4 3 Dressing: saturated Wound: other Drains: other Cardiovascular: RSR Respiratory: decreased breath sounds Abdomen: soft, present bowel sounds, non-distended Extremities: no cyanosis, other Plan Problems: (1) Severe protein-calorie malnutrition Assessment & Plan: DAILY ESTIMATED NEEDS: Needs based on Wound, advanced age, DM 51.8kg 25-35 kcals/kg 9474-8461 total kcals 1.25-1.5 g protein/kg 65-78 g total protein 25-30ml/kcal mL/kg 5673-9364 total fluid mLs NUTRITION DIAGNOSIS: Altered nutrition related lab values r/t diabetes as evidenced by A1C 7.4, U glu 2+, w/ hypoglycemic event (30*) CURRENT DIET: CCHO MED puree PO DIET RECOMMENDATIONS: Liberalized Regular diet (texture per SNORKELLING INSTRUCTOR) ADDITIONAL RECOMMENDATIONS: 1) W/ poor po intake, rec GLUCERNA as HPN w/ meals 2) F/up w/ WC eval-> rec JAGUAR BID 3) Calibrated bed scale weight SNF wt: 114lbs, Bed wt: 116lbs 4) SNORKELLING INSTRUCTOR eval for texture 5) HS snacks nightly to prevent hypoglycemia + Snacks in b/w meals (2) Decubital ulcer Assessment & Plan: Pt presented on admission with 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 Base of wound has 90% fibrinous slough,which was removed with friction with Gauze non excisional debridement when necessary (L)2cm x(W)2.5cm x (D)0.5cm . Borders macerated with surrounding erythema. No elevation in skin temp noted. R and L heels are both boggy with non-blanching erythema. Non-blanching erythema sacrum with small sheared area noted. Surrounding hyperpigmentation from previous wound. Pt noted to have generalized pimple -like rash,with burrowing noted to R and L lateral axillae,web spaces of both hands,chest ,both flanks, both groin areas, and both feet. Pt noted to be aggressively scratching at skin. possible scabies. ID eval Tx.Plan: Cleanse wound jasbir L tibia with Saline. Apply Therahoney. Apply Cavilon Skin Barrier periwound.Cover with Optifoam drsg. Daily and PRN. Apply Moisture Barrier Paste to Sacrum. Cover with Optifoam drsg. Change every 3 days and prn. Apply Cavilon Skin Barrier to both heels. Cover each heel with Optifoam drsg. Change every 7 days and prn. Reposition at least every 2hours or as tolerated. Off-load heels with pillow. Nutritional optimization Will monitor and follow with recommendations d/c planning cont with above plan for d/c clinically wounds chronic but can consider abx duration to ensure improved (3) Toxic metabolic encephalopathy Assessment & Plan: Abnormal labs, altered mental status, hypoglycemia IV fluids Dextrose Trend labs Glucose checks We will follow with recommendations thank you Ibrahima Connors Nov 07, 2019 19:27
--- NOTE | 2019-11-07 19:44 | Cardiology Report ---
APPROVED REPORT EKG Measurement Heart [id number] Normal sinus rhythm Normal ECG
[2019-11-07 20:00] VITALS: BP 110/54
[2019-11-07] MEDS: Vancomycin 750mg/NS 275ml IVPB SCH ×2 (20:31)
[2019-11-08] VITALS: BP 145/61
[2019-11-08 04:00] VITALS: BP 150/72
[2019-11-08] MEDS: Piperacillin/Tazobactam 3.375 GM in NS 110 ML IVPB SCH ×2 (05:07→13:55)
[2019-11-08] MEDS: NovoLOG Insulin Flexpen SUBQ SCH ×4 (05:46→20:58)
--- NOTE | 2019-11-08 07:09 | NUR ---
HAND-OFF: Report given to RAJIV Suero.
--- NOTE | 2019-11-08 07:10 | NUR ---
HAND-OFF: Report given to Jesika Stacy.
--- NOTE | 2019-11-08 07:25 | NUR ---
NURSE NOTES: Received patient on bed, awake. denies any pain or discomfort. with IV line on the left hand. patent and intact. bed locked and in lowest position. onn fall and aspiration precaution, call light and light button within easy reach. will continue plan of care flor patton
[2019-11-08 08:00] VITALS: BP 117/54
[2019-11-08 08:01] LABS: EOSINOPHILS % (AUTO) 5.4 % (0.0-3.0); HEMATOCRIT 34.4 % (37.0-47.0); HEMOGLOBIN 10.9 G/DL (12.0-16.0); LYMPHOCYTES % (AUTO) 34.5 % (20.0-45.0); MEAN CORPUSCULAR VOLUME 92 FL (80-99); NEUTROPHILS % (AUTO) 52.1 % (45.0-75.0); PLATELET COUNT 394 K/UL (150-450); RED BLOOD COUNT 3.74 M/UL (4.20-5.40); RED CELL DISTRIBUTION WIDTH 13.1 % (11.6-14.8); WHITE BLOOD COUNT 6.8 K/UL (4.8-10.8)
[2019-11-08] MEDS: Pantoprazole Inj IVP SCH (08:04)
[2019-11-08] MEDS: Heparin 5000 units/ml inj SUBQ SCH ×2 (08:05→20:57)
[2019-11-08 09:12] LABS: ALANINE AMINOTRANSFERASE 29 U/L (12-78); ALBUMIN 2.8 G/DL (3.4-5.0); ALBUMIN/GLOBULIN RATIO 0.5 (1.0-2.7); ALKALINE PHOSPHATASE 48 U/L (46-116); ANION GAP 13 mmol/L (5-15); ASPARTATE AMINO TRANSFERASE 36 U/L (15-37); BILIRUBIN,TOTAL 0.4 MG/DL (0.2-1.0); BLOOD UREA NITROGEN 22 mg/dL (7-18); CALCIUM 9.2 MG/DL (8.5-10.1); CARBON DIOXIDE 23 MMOL/L (21-32); CHLORIDE 106 MMOL/L (98-107); CREATININE 1.4 MG/DL (0.55-1.30); POTASSIUM 4.1 MMOL/L (3.5-5.1); SODIUM 142 MMOL/L (136-145)
--- NOTE | 2019-11-08 11:45 | NUR ---
RD ASSESSMENT & RECOMMENDATIONS SEE CARE ACTIVITY FOR COMPLETE ASSESSMENT DAILY ESTIMATED NEEDS: Needs based on Wound, advanced age, DM 51.8kg 25-35 kcals/kg 1665-6631 total kcals 1.25-1.5 g protein/kg 65-78 g total protein 25-30ml/kcal mL/kg 6788-7624 total fluid mLs NUTRITION DIAGNOSIS: * Increased kcal/prot intake needs R/T wound healing as evidenced by pt admitted w/ stage 4 wound @ jasbir L tibia and non-blanchable erythema @ sacrum and BL heels, currently w/ poor and variable PO intake * Altered nutrition related lab values r/t diabetes as evidenced by A1C 7.4,U glu 2+, w/ hypoglycemic event (30*) upon adm, now poc glu (88 156 119 110 118 145) CURRENT DIET: CCHO MED puree + Glucerna TID w/ meals PO DIET RECOMMENDATIONS: Maintain CCHO MED/ texture per HOT WOUND SPRING PRODUCTION SUPERVISOR ADDITIONAL RECOMMENDATIONS: 1) Wound eval: add MVI x 1, Vit C 500mg QD ZnSO4 220mg QD x 10 days Mane 1pkt BID as tolerated 2) Calibrated bed scale weight SNF wt: 114lbs, Bed wt: 104.7lbs 3) HS snacks nightly to prevent hypoglcyemia + Snacks in b/w meals 4) Monitor PO intake closely, need for appetite stimulant
[2019-11-08 12:00] VITALS: BP 124/58
--- NOTE | 2019-11-08 12:45 | Progress Note ---
DATE: 11/07/2019 SUBJECTIVE: The patient continues to have evidence of infection concern over osteomyelitis of the left leg has prompted MRI to be ordered. The patient remains with stable temperature, no hypothermic episode. OBJECTIVE: VITAL SIGNS: Blood pressure 130/61, pulse 77, respirations 17. LUNGS: Clear. CARDIAC: Regular. ABDOMEN: Soft. EXTREMITIES: No edema. Wound sites have dressing in place. LABORATORY DATA: Cultures noted with Gram-negative bacillus in culture. IMPRESSION: 1. Hypothermia, recovered. 2. Sepsis, resolving. 3. Possible osteomyelitis. 4. Severe protein-calorie malnutrition. 5. Transient bradycardia with no recurrence and likely precipitated by hypothermia. 6. Hypertension, controlled at this time. PLAN: 1. Antimicrobials. 2. Imaging study. 3. Monitor blood pressure parameters. 4. Hold additional antihypertensive therapy. 5. Maintain adequate hydration. 6. Recheck laboratory studies. Kevin Zapata M.D. DR: TALHA JOB#: [id number] CC:
--- NOTE | 2019-11-08 13:53 | NUR ---
CASE MANAGEMENT:REVIEW 11/08/19 SI: SEPSIS. HYPOTHERMIA. MALNUTRITION SCABIES(TREATED) . DECUB. POSSIBLE OSTEO 97.6 59 18 124/58 95% ON RA H/H-10.9/34.4 BUN+22 CR+1.4 IS: IV VANCOMYCIN Q24 IV ZOSYN Q8HRS HEPARIN SQ Q12 : MED/SURG STATUS 4 EAST DCP: [facility]
--- NOTE | 2019-11-08 14:13 | NUR ---
DISCHARGE PLANNING PAT[facility] T: [phone] [facility] IS REQUESTING DOCUMENTATION THAT PATIENT NO LONGER HAS SCABIES
--- NOTE | 2019-11-08 14:44 | Surgery Progress Note ---
Surgery Progress Note Subjective Additional Comments labs improved exam stable tolerating 100% oral intake with sitter Objective Last 24 Hour Vital Signs Date Time Temp Pulse Resp B/P (MAP) Pulse Ox O2 Delivery O2 Flow Rate FiO2 11/08/19 12:00 97.6 59 18 124/58 (80) 95 11/08/19 08:20 Room Air 11/08/19 08:00 97.0 66 20 117/54 (75) 96 11/08/19 04:00 97.3 61 16 150/72 (98) 96 11/08/19 00:00 97.6 18 145/61 (89) 96 11/07/19 21:00 Room Air 11/07/19 20:00 97.6 70 14 110/54 (72) 96 11/07/19 16:00 97.7 75 18 143/66 (91) 95 I&O Intake and Output 11/07/19 11/08/19 19:00 07:00 Intake Total 590.0 ml 651.66 ml Balance 590.0 ml 651.66 ml Intake Oral 480 ml 120 ml IV Total 110.0 ml 531.66 ml # Voids 4 2 # Bowel Movements 2 Dressing: other Wound: other Drains: other Cardiovascular: RSR Respiratory: decreased breath sounds Abdomen: soft, present bowel sounds, non-distended Extremities: no cyanosis Laboratory Tests Test 11/08/19 05:30 White Blood Count 6.8 K/UL (4.8-10.8) Red Blood Count 3.74 M/UL (4.20-5.40) L Hemoglobin 10.9 G/DL (12.0-16.0) L Hematocrit 34.4 % (37.0-47.0) L Mean Corpuscular Volume 92 FL (80-99) Mean Corpuscular Hemoglobin 29.1 PG (27.0-31.0) Mean Corpuscular Hemoglobin Concent 31.6 G/DL (32.0-36.0) L Red Cell Distribution Width 13.1 % (11.6-14.8) Platelet Count 394 K/UL (150-450) Mean Platelet Volume 5.0 FL (6.5-10.1) L Neutrophils (%) (Auto) 52.1 % (45.0-75.0) Lymphocytes (%) (Auto) 34.5 % (20.0-45.0) Monocytes (%) (Auto) 7.0 % (1.0-10.0) Eosinophils (%) (Auto) 5.4 % (0.0-3.0) H Basophils (%) (Auto) 1.0 % (0.0-2.0) Sodium Level 142 MMOL/L (136-145) Potassium Level 4.1 MMOL/L (3.5-5.1) Chloride Level 106 MMOL/L (98-107) Carbon Dioxide Level 23 MMOL/L (21-32) Anion Gap 13 mmol/L (5-15) Blood Urea Nitrogen 22 mg/dL (7-18) H Creatinine 1.4 MG/DL (0.55-1.30) H Estimat Glomerular Filtration Rate mL/min (>60) Glucose Level 85 MG/DL (74-106) Calcium Level 9.2 MG/DL (8.5-10.1) Magnesium Level 2.1 MG/DL (1.8-2.4) Total Bilirubin 0.4 MG/DL (0.2-1.0) Aspartate Amino Transf (AST/SGOT) 36 U/L (15-37) Alanine Aminotransferase (ALT/SGPT) 29 U/L (12-78) Alkaline Phosphatase 48 U/L (46-116) Total Protein 8.4 G/DL (6.4-8.2) H Albumin 2.8 G/DL (3.4-5.0) L Globulin 5.6 g/dL Albumin/Globulin Ratio 0.5 (1.0-2.7) L Plan Problems: (1) Severe protein-calorie malnutrition Assessment & Plan: DAILY ESTIMATED NEEDS: Needs based on Wound, advanced age, DM 51.8kg 25-35 kcals/kg 5815-2526 total kcals 1.25-1.5 g protein/kg 65-78 g total protein 25-30ml/kcal mL/kg 6314-9359 total fluid mLs NUTRITION DIAGNOSIS: Altered nutrition related lab values r/t diabetes as evidenced by A1C 7.4, U glu 2+, w/ hypoglycemic event (30*) CURRENT DIET: CCHO MED puree PO DIET RECOMMENDATIONS: Liberalized Regular diet (texture per BUSINESS RELATIONS MANAGER) ADDITIONAL RECOMMENDATIONS: 1) W/ poor po intake, rec GLUCERNA as HPN w/ meals 2) F/up w/ WC eval-> rec JAGUAR BID 3) Calibrated bed scale weight SNF wt: 114lbs, Bed wt: 116lbs 4) BUSINESS RELATIONS MANAGER eval for texture 5) HS snacks nightly to prevent hypoglycemia + Snacks in b/w meals (2) Decubital ulcer Assessment & Plan: Pt presented on admission with 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 Base of wound has 90% fibrinous slough,which was removed with friction with Gauze non excisional debridement when necessary (L)2cm x(W)2.5cm x (D)0.5cm . Borders macerated with surrounding erythema. No elevation in skin temp noted. R and L heels are both boggy with non-blanching erythema. Non-blanching erythema sacrum with small sheared area noted. Surrounding hyperpigmentation from previous wound. Pt noted to have generalized pimple -like rash,with burrowing noted to R and L lateral axillae,web spaces of both hands,chest ,both flanks, both groin areas, and both feet. Pt noted to be aggressively scratching at skin. possible scabies. ID eval Tx.Plan: Cleanse wound jasbir L tibia with Saline. Apply Therahoney. Apply Cavilon Skin Barrier periwound.Cover with Optifoam drsg. Daily and PRN. Apply Moisture Barrier Paste to Sacrum. Cover with Optifoam drsg. Change every 3 days and prn. Apply Cavilon Skin Barrier to both heels. Cover each heel with Optifoam drsg. Change every 7 days and prn. Reposition at least every 2hours or as tolerated. Off-load heels with pillow. Nutritional optimization Will monitor and follow with recommendations d/c planning cont with above plan for d/c clinically wounds chronic but can consider abx duration to ensure improved (3) Toxic metabolic encephalopathy Assessment & Plan: Abnormal labs, altered mental status, hypoglycemia IV fluids Dextrose Trend labs Glucose checks We will follow with recommendations thank you Ibrahima Connors Nov 08, 2019 14:44
--- NOTE | 2019-11-08 15:01 | NUR ---
DISCHARGE PLANNED PATIENT IS DISCHARGING TO [facility] ROOM 28A SKILLED T: [phone] FOR NURSE TO NURSE REPORT [facility] HAS BEEN ARRANGED FOR 1730 NARCOTICS AND VICE DETECTIVE SPOKE WITH SON CRUZ WHO IS IN AGREEMENT WITH DISCHARGE PLAN
[2019-11-08 16:03] VITALS: BP 133/57
[2019-11-08] MEDS ORDERED: Levofloxacin 500mg tab ORAL SCH (16:30)
--- NOTE | 2019-11-08 16:53 | Infectious Diseases Prog Note ---
Assessment/Plan Assessment/Plan A: 1. Left leg ulcer with surrounding cellulitis. CT is negative for osteomyelitis. 2. Diabetes. 3. Hypertension. 4. Anemia 5. Dementia PLAN: 1. agree with discharge with PO Levaquin 2. Ralph \e was D/W Dr Zapata Subjective ROS Limited/Unobtainable: Yes Constitutional: Denies: fever Allergies: Coded Allergies: No Known Allergies (Unverified , 11/03/19) Objective Vital Signs Last 24 Hour Vital Signs Date Time Temp Pulse Resp B/P (MAP) Pulse Ox O2 Delivery O2 Flow Rate FiO2 11/08/19 16:03 97.6 73 18 133/57 (82) 96 11/08/19 12:00 97.6 59 18 124/58 (80) 95 11/08/19 08:20 Room Air 11/08/19 08:00 97.0 66 20 117/54 (75) 96 11/08/19 04:00 97.3 61 16 150/72 (98) 96 11/08/19 00:00 97.6 18 145/61 (89) 96 11/07/19 21:00 Room Air 11/07/19 20:00 97.6 70 14 110/54 (72) 96 Height (Feet): 5 Height (Inches): 1.00 Weight (Pounds): 100 General Appearance: no acute distress HEENT: mucous membranes moist Respiratory/Chest: lungs clear Cardiovascular: normal rate Abdomen: soft, non tender Extremities: no edema Skin: ulcers, other - on left anne Neurologic/Psychiatric: alert, responsive, disoriented Microbiology Date/Time Source Procedure Growth Status 11/06/19 11:10 Leg Left Gram Stain - Final Resulted 11/06/19 11:10 Wound Culture - Preliminary Pseudomonas Aeruginosa Yeast Species Resulted Laboratory Tests Test 11/08/19 05:30 White Blood Count 6.8 K/UL (4.8-10.8) Red Blood Count 3.74 M/UL (4.20-5.40) L Hemoglobin 10.9 G/DL (12.0-16.0) L Hematocrit 34.4 % (37.0-47.0) L Mean Corpuscular Volume 92 FL (80-99) Mean Corpuscular Hemoglobin 29.1 PG (27.0-31.0) Mean Corpuscular Hemoglobin Concent 31.6 G/DL (32.0-36.0) L Red Cell Distribution Width 13.1 % (11.6-14.8) Platelet Count 394 K/UL (150-450) Mean Platelet Volume 5.0 FL (6.5-10.1) L Neutrophils (%) (Auto) 52.1 % (45.0-75.0) Lymphocytes (%) (Auto) 34.5 % (20.0-45.0) Monocytes (%) (Auto) 7.0 % (1.0-10.0) Eosinophils (%) (Auto) 5.4 % (0.0-3.0) H Basophils (%) (Auto) 1.0 % (0.0-2.0) Sodium Level 142 MMOL/L (136-145) Potassium Level 4.1 MMOL/L (3.5-5.1) Chloride Level 106 MMOL/L (98-107) Carbon Dioxide Level 23 MMOL/L (21-32) Anion Gap 13 mmol/L (5-15) Blood Urea Nitrogen 22 mg/dL (7-18) H Creatinine 1.4 MG/DL (0.55-1.30) H Estimat Glomerular Filtration Rate mL/min (>60) Glucose Level 85 MG/DL (74-106) Calcium Level 9.2 MG/DL (8.5-10.1) Magnesium Level 2.1 MG/DL (1.8-2.4) Total Bilirubin 0.4 MG/DL (0.2-1.0) Aspartate Amino Transf (AST/SGOT) 36 U/L (15-37) Alanine Aminotransferase (ALT/SGPT) 29 U/L (12-78) Alkaline Phosphatase 48 U/L (46-116) Total Protein 8.4 G/DL (6.4-8.2) H Albumin 2.8 G/DL (3.4-5.0) L Globulin 5.6 g/dL Albumin/Globulin Ratio 0.5 (1.0-2.7) L Current Medications Medications (Trade) Dose Ordered Sig/Luz Maria Route PRN Reason Start Time Stop Time Status Last Admin Dose Admin Ascorbic Acid (Vitamin C) 500 mg DAILY ORAL 11/09/19 09:00 12/09/19 08:59 Dextrose (Dextrose 50%) 25 ml Q30M PRN IV Hypoglycemia 11/06/19 09:15 12/03/19 18:44 Dextrose (Dextrose 50%) 50 ml Q30M PRN IV Hypoglycemia 11/06/19 09:15 12/03/19 18:44 Donepezil HCl (Aricept) 10 mg QHS ORAL 11/08/19 21:00 12/08/19 20:59 Heparin Sodium (Porcine) (Heparin 5000 units/ml) 5,000 units EVERY 12 HOURS SUBQ 11/06/19 21:00 12/03/19 20:59 11/08/19 08:05 Insulin Aspart (NovoLOG) BEFORE MEALS AND HS SUBQ 11/06/19 11:30 12/03/19 20:59 11/08/19 16:34 Levofloxacin (Levaquin) 250 mg Q24H ORAL 11/09/19 17:00 11/16/19 16:59 Levofloxacin (Levaquin) 500 mg ONCE ORAL 11/08/19 16:30 11/08/19 17:30 11/08/19 16:33 Losartan Potassium (Cozaar) 50 mg DAILY ORAL 11/09/19 09:00 12/09/19 08:59 Memantine (Namenda) 5 mg DAILY ORAL 11/09/19 09:00 12/09/19 08:59 Zinc Sulfate (Zinc Sulfate) 220 mg DAILY ORAL 11/09/19 09:00 12/09/19 08:59 Harlan Jackson MD Nov 08, 2019 16:53
--- NOTE | 2019-11-08 18:00 | NUR ---
nurse notes discharge to SNF obtained, patient accepted at [facility] rehab report given to Cheyanne, latoya nurse kyra, waiting for the ambulance pharmacy picking tech flor patton
--- NOTE | 2019-11-08 19:21 | NUR ---
HAND-OFF: Report given to ADAMARIS VANCE,ej Zhang RN.
--- NOTE | 2019-11-08 19:31 | NUR ---
NURSE NOTES: Called and spoke with Yariel from [facility] - ETA is 45 minutes to an 1 hour.
--- NOTE | 2019-11-08 19:32 | NUR ---
NURSE NOTES: Received patient on bed, asleep. respirations even and unlabored. no SOB. bed locked and in lowest position. call light light button within easy reach. called ambulance for the merchandise pickup/receiving associate(discharge). awaiting for the ambulance to arrived.
[2019-11-08 20:00] VITALS: BP 125/76
[2019-11-08] MEDS ORDERED: Donepezil 10mg tab ORAL SCH (21:00)
[2019-11-08] MEDS ORDERED: D5NS 1000ml IV ONE (22:09)
--- NOTE | 2019-11-08 22:13 | NUR ---
NURSE NOTES: Patient was discharge today to [facility] rehab per stretcher accompanied by 2 CLOTH CUTTING INSPECTOR of [facility] ext [id number]. respirations even and unlabored. NO SOB. report given to the EMT. patient unable to sign consents for discharge. discharge pocket( medications and instructions) given to the EMT. Assisted patient to transfer to the stretcher. all belongings was given upon discharge(shirt & sheet). vital signs of 125/76 mmhg, 76 bpm, 19 cpm, 97.9F, 97%.
--- NOTE | 2019-11-08 22:15 | Progress Note ---
DATE: 11/08/2019 CARDIOLOGY PROGRESS NOTE SUBJECTIVE: The patient is remaining with normal temperature. No hypothermic episode since admission. Blood pressure parameters now stabilized. The patient's cultures have returned Pseudomonas. She has been isolated. The primary physician has adjusted antimicrobials. OBJECTIVE: VITAL SIGNS: Blood pressure 117/54, pulse 66, respirations 20, and afebrile. Wound has dressing in place. NECK: Supple. Jugular venous pressure normal. LUNGS: Clear. CARDIAC: Regular. Normal S1, S2. ABDOMEN: Soft. EXTREMITIES: No edema. LABORATORY DATA: Glucose parameters in the 100 to 140 range. IMPRESSION: 1. Sepsis. 2. Shock. 3. Hypothermia. 4. Sacral wound. 5. Urinary tract infection, all improved. 6. Hemodynamically stable now. PLAN: The patient continues to have stable blood pressure parameters and glucose parameters. Off all medication. Recommend do not need to restart diabetic or antihypertensive medications yet with continued observation for now and resume in a stepwise fashion once blood pressure and glucose parameters start increasing again. Kevin Zapata M.D. DR: FRANKY JOB#: [id number] CC:
--- NOTE | 2019-11-09 03:15 | Discharge Summary ---
DATE OF ADMISSION: 11/03/2019 DATE OF DISCHARGE: 11/08/2019 ADMISSION DIAGNOSES: 1. Encephalopathy. 2. Hypoglycemia, rule out sepsis. 3. Diabetes. DISCHARGE DIAGNOSES: 1. Encephalopathy. 2. Hypoglycemia, rule out sepsis. 3. Diabetes. HOSPITAL COURSE: The patient is an elderly female admitted with complaints of altered mental status. She had a CAT scan of the head that showed no stroke. She was noted to be hypoglycemic and placed on IV fluids. Her hospital course was complicated by another episode of hypoglycemia. The patient was placed on D5. She also was noted to have a wound on the left leg. She had a CAT scan that was negative for osteo. She was treated with intravenous antibiotic therapy. On discharge, she was stable. She will be discharged to a senior living facility for wound care. DISCHARGE MEDICATIONS: Please see discharge medication list for discharge medications. DIET: Diabetic diet. ACTIVITIES: Ad-dunia. FOLLOWUP: The patient will be followed by a physician at the senior living facility. Maximino Harmon M.D. DR: OLMAN JOB#: [id number] CC:
[2019-11-09] MEDS ORDERED: Losartan 50mg tab ORAL SCH (09:00)
[2019-11-09] MEDS ORDERED: Ascorbic Acid 500mg tab ORAL SCH (09:00)
[2019-11-09] MEDS ORDERED: Zinc Sulfate 220mg cap ORAL SCH (09:00)
[2019-11-09] MEDS ORDERED: Memantine 10mg tab ORAL SCH (09:00)
== END 2019-11-08 22:10 | DRG 871 ==
LOC: EDBD 15:14 → EMR 15:37 → 2E 17:00 → EDBEDREQ 17:23 → 4E 11-06 09:06
DX: A41.9 Sepsis, unspecified organism (principal); L89.894 Pressure ulcer of other site, stage 4; G92 Toxic encephalopathy; E43 Unspecified severe protein-calorie malnutrition; L03.116 Cellulitis of left lower limb; E11.649 Type 2 diabetes mellitus with hypoglycemia without coma; E86.1 Hypovolemia; I10 Essential (primary) hypertension; F01.50 Vascular dementia, unspecified severity, without behavioral disturbance, psychotic disturbance, mood disturbance, and anxiety; T68.XXXA Hypothermia, initial encounter; Z79.4 Long term (current) use of insulin; B86 Scabies; E86.0 Dehydration; R00.1 Bradycardia, unspecified; Z68.20 Body mass index [BMI] 20.0-20.9, adult
CPT/HCPCS: 36415; 71045; 80053; 80202; 81003; 82150; 82533; 82550; 82553; 82962; 83036; 83605; 83690; 83735; 84443; 84484; 85025; 85610; 85651; 85730; 86140; 86850; 86900; 86901; 87040; 87070; 87081; 87181; 87205; 93005; 96365; 99285; J1815; J7030

== ENCOUNTER 2020-01-06 21:18 | Inpatient (IN) | payer MEDICARE, MEDICAID ==
[~2020-01-06] VITALS: Ht 152.4 cm; Wt 48.1 kg
[~2020-01-06 21:18] MED LIST: CRESTOR10 M1 ORAL; DONEPEZIL HCL5 M2 ORAL; GLIPIZIDE5 MG ORAL; JANUMET 50-1,01 EACH ORAL; LEVEMIR100 UNIT/1 SUBQ; LEVOCETIRIZINE D5 MG ORAL; LOSARTAN POTASS25 MG ORAL; MIRTAZAPINE7.5 MG ORAL; NAMENDA10 MG ORAL; TRIAMCINOLONE A15 G2 TP
[2020-01-06] MEDS ORDERED: Sodium Chloride 1,400 ML IVLG ONE (21:30)
[2020-01-06] MEDS ORDERED: Acetaminophen 500mg (ES) tab ORAL ONE (21:30)
--- NOTE | 2020-01-06 21:30 | NUR ---
ED Nurse Note: Pt brought into ED from [facility] by [facility] ambulance unit 285 for c/o abnormal labs. Per EMS, pt BUN was 103 and potassium was 5.7 at facility. EMS also reports pt has not been eating since yesterday. Pt appears lethargic at this time, not able to answer my questions but does respond to verbal stimuli. Hx of dementia noted. Pt connected to monitor tech. Will continue to monitor.
[2020-01-06] MEDS ORDERED: LOSARTAN POTASS50 MG ORAL (21:37)
[2020-01-06] MEDS ORDERED: FERROUS SULFAT325 MG ORAL (21:37)
[2020-01-06] MEDS ORDERED: METFORMIN HCL1000 M1 ORAL (21:37)
[2020-01-06] MEDS ORDERED: DONEPEZIL HCL10 M2 ORAL (21:37)
[2020-01-06 22:03] LABS: BASOPHILS % (AUTO) 0.5 % (0.0-2.0); HEMATOCRIT 40.5 % (37.0-47.0); HEMOGLOBIN 12.1 G/DL (12.0-16.0); LYMPHOCYTES % (AUTO) 20.2 % (20.0-45.0); MEAN CORPUSCULAR VOLUME 99 FL (80-99); MONOCYTES % (AUTO) 7.7 % (1.0-10.0); NEUTROPHILS % (AUTO) 71.6 % (45.0-75.0); PLATELET COUNT 194 K/UL (150-450); RED BLOOD COUNT 4.09 M/UL (4.20-5.40); RED CELL DISTRIBUTION WIDTH 15.6 % (11.6-14.8); WHITE BLOOD COUNT 12.1 K/UL (4.8-10.8)
--- NOTE | 2020-01-06 22:06 | Emergency Room Report ---
History of Present Illness General Chief Complaint: Abnormal Labs Source: EMS Present Illness HPI Disclaimer: Please note that this report is being documented using [employer] technology. This can lead to erroneous entry secondary to incorrect interpretation by the dictating instrument. HPI: 89-year-old female history of severe dementia, Kazakh speaking only, hypertension, hyperlipidemia, diabetes presents for evaluation of abnormal labs. According to EMS she has not been eating over the past few days. Her potassium, BUN and creatinine were found to be elevated in outpatient lab testing. She is more lethargic and somnolent than usual but they denied any vomiting or diarrhea. Patient does not provide any history given her severe dementia. She arrives slightly hypotensive with systolics in the 70s and 80s as well as borderline febrile. PMH: Severe dementia, diabetes, hypertension PSH: Reviewed Allergies: None listed in medical chart Social Hx: Unknown Allergies: Coded Allergies: No Known Allergies (Unverified , 11/03/19) Patient History Now: No Nursing Documentation-PMH Hx Hypertension: Yes Hx Diabetes: Yes Hx Cancer: No Hx Gastrointestinal Problems: No Hx Dementia: Yes Hx Alzheimer's Disease: Yes Hx Syncope: Yes Review of Systems All Other Systems: limited - Unable to obtain due to patient's severe dementia Physical Exam Vital Signs Date Time Temp Pulse Resp B/P (MAP) Pulse Ox O2 Delivery O2 Flow Rate FiO2 01/06/20 21:12 100.6 116 82/47 (59) General: Awake but somnolent, no acute distress, borderline febrile HEENT: NC/AT. EOMI. dry mucous membranes Cardiovascular: Tachycardic. S1 and S2 normal. No murmur appreciated Resp: Normal work of breathing. No cough, wheezing or crackles appreciated Abdomen: Abdomen is soft, nondistended. Nontender Skin: Intact. No abrasions, laceration or rash over the exposed skin MSK: Normal tone and bulk. Moving all extremities. No obvious deformity. Neuro: Awake and alert. Mentating appropriately. Procedures Critical Care Time Critical Care Time Total critical care time: Approximately 45 minutes Due to a high probability of clinically significant, life threatening deterioration, the patient required the highest level of preparedness to intervene emergently and I personally spent this critical care time directly and personally managing the patient. This critical care time included obtaining a history, examining the patient, pulse oximetry, ordering and reviewing studies , ordering treatments, evaluating response to treatment and updating management plan as needed, frequent reassessment and discussion with other providers as well as arranging for ultimate disposition. This critical to care time was performed to assess and manage the high probability of life-threatening deterioration that could result in multiorgan failure. This critical care time is separate from the separately billable procedures and treating other patients. Medical Decision Making Diagnostic Impression: Primary Impression: Sepsis Additional Impressions: Hyperkalemia PAUL (acute kidney injury) Hypernatremia UTI (urinary tract infection) ER Course 89-year-old female presents for evaluation of abnormal labs. She arrives hypotensive, tachycardic and borderline febrile by EMS. Concern for sepsis, acute kidney injury and hyperkalemia at this time though other source of infection such as UTI, urosepsis, ACS, pneumonia are also on the differential. Start a broad metabolic and infectious work-up. Will repeat labs to evaluate renal function and potassium. EKG performed on arrival does not show any hyperacute T waves. Patient be given IV fluids, antipyretics. She will require admission. Laboratory Tests Test 01/06/20 21:45 White Blood Count 12.1 K/UL (4.8-10.8) H Red Blood Count 4.09 M/UL (4.20-5.40) L Hemoglobin 12.1 G/DL (12.0-16.0) Hematocrit 40.5 % (37.0-47.0) Mean Corpuscular Volume 99 FL (80-99) Mean Corpuscular Hemoglobin 29.6 PG (27.0-31.0) Mean Corpuscular Hemoglobin Concent 29.9 G/DL (32.0-36.0) L Red Cell Distribution Width 15.6 % (11.6-14.8) H Platelet Count 194 K/UL (150-450) Mean Platelet Volume 6.8 FL (6.5-10.1) Neutrophils (%) (Auto) 71.6 % (45.0-75.0) Lymphocytes (%) (Auto) 20.2 % (20.0-45.0) Monocytes (%) (Auto) 7.7 % (1.0-10.0) Eosinophils (%) (Auto) 0.0 % (0.0-3.0) Basophils (%) (Auto) 0.5 % (0.0-2.0) Sodium Level 161 MMOL/L (136-145) *H Potassium Level 6.0 MMOL/L (3.5-5.1) *H Chloride Level 125 MMOL/L (98-107) H Carbon Dioxide Level 11 MMOL/L (21-32) L Anion Gap 25 mmol/L (5-15) H Blood Urea Nitrogen 130 mg/dL (7-18) H Creatinine 4.9 MG/DL (0.55-1.30) H Estimate Glomerular Filtration Rate mL/min (>60) Glucose Level 245 MG/DL (74-106) H Lactic Acid Level 2.00 mmol/L (0.4-2.0) Calcium Level 8.6 MG/DL (8.5-10.1) Phosphorus Level 7.7 MG/DL (2.5-4.9) H Magnesium Level 2.7 MG/DL (1.8-2.4) H Total Bilirubin 0.3 MG/DL (0.2-1.0) Aspartate Amino Transferase (AST) 16 U/L (15-37) Alanine Aminotransferase (ALT) 20 U/L (12-78) Alkaline Phosphatase 37 U/L (46-116) L Total Creatine Kinase 44 U/L (26-308) Creatine Kinase MB 1.5 NG/ML (0.0-3.6) Creatine Kinase MB Relative Index 3.4 Troponin I 0.041 ng/mL (0.000-0.056) Total Protein 7.3 G/DL (6.4-8.2) Albumin 3.3 G/DL (3.4-5.0) L Globulin 4.0 g/dL Albumin/Globulin Ratio 0.8 (1.0-2.7) L EKG Diagnostic Results EKG Time: 21:31 Rate: tachycardiac Rhythm: NSR ST Segments: no acute changes Other Impression Sinus tachycardia, normal axis, normal intervals, no ST segment changes. Rhythm Strip Diag. Results Rhythm Strip Time: 21:31 EP Interpretation: yes Rate: 115 Rhythm: NSR, no PVC's, no ectopy Reevaluation Time: 22:58 Last Vital Signs Date Time Temp Pulse Resp B/P (MAP) Pulse Ox O2 Delivery O2 Flow Rate FiO2 01/06/20 21:12 100.6 116 82/47 (59) Reevaluation Impression Patient found to be hyperkalemic and in acute kidney failure. Significant elevation in BUN and creatinine. Also found hyponatremic and hyperkalemic. Given calcium, insulin with dextrose, lasix. Heart rate improving as his blood pressure. Patient responsive to fluids. We will continue IV fluids and admit to SDU. Currently there are no beds available and the patient will be boarding in the emergency department. Will be admitted to Dr. Zapata who is her PMD. Sepsis reevaluation: 2300 Capillary refill: Less than 2 seconds MAP: 51 Heart rate: 100 Respiratory rate: 17 Initial Lactate: 2.00 No signs of fluid overload 0144: Labs also consistent with a urinary tract infection. Likely the source of her sepsis. Will treat with ceftriaxone. Disposition: ADMITTED INPATIENT Condition: Serious Referrals: Kevin Zapata MD (PCP) Darius Orozco MD Jan 06, 2020 22:06
[2020-01-06] MEDS ORDERED: Acetaminophen 650 MG SUPP RECTAL ONE (22:15)
--- NOTE | 2020-01-06 22:30 | NUR ---
ED Nurse Note: Pt is more awake at this time. Pt is able to state name, but unable to answer to state time, purpose or place.
[2020-01-06 22:33] LABS: ALANINE AMINOTRANSFERASE 20 U/L (12-78); ALBUMIN 3.3 G/DL (3.4-5.0); ALBUMIN/GLOBULIN RATIO 0.8 (1.0-2.7); ALKALINE PHOSPHATASE 37 U/L (46-116); ANION GAP 25 mmol/L (5-15); ASPARTATE AMINO TRANSFERASE 16 U/L (15-37); BILIRUBIN,TOTAL 0.3 MG/DL (0.2-1.0); BLOOD UREA NITROGEN 130 mg/dL (7-18); CALCIUM 8.6 MG/DL (8.5-10.1); CARBON DIOXIDE 11 MMOL/L (21-32); CHLORIDE 125 MMOL/L (98-107); CKMB 1.5 NG/ML (0.0-3.6); CREATINE KINASE 44 U/L (26-308); CREATININE 4.9 MG/DL (0.55-1.30); PHOSPHORUS 7.7 MG/DL (2.5-4.9)
[2020-01-06 22:42] LABS: SODIUM 161 MMOL/L (136-145)
[2020-01-06] MEDS ORDERED: Insulin Human Regular 100units/ml 3ml IV ONE (23:00)
[2020-01-06] MEDS ORDERED: Calcium Gluconate 1gm/10ml vial IVP ONE (23:00)
[2020-01-06 23:28] LABS: BILIRUBIN, URINE 1+ (NEGATIVE); GLUCOSE, URINE (UA) NEGATIVE (NEGATIVE); KETONES,URINE 1+ (NEGATIVE); NITRITE,URINE NEGATIVE (NEGATIVE); PH,URINE 5 (4.5-8.0); PROTEIN,URINE 3+ (NEGATIVE); UROBILINOGEN,URINE NORMAL MG/DL (0.0-1.0)
[2020-01-06 23:30] VITALS: BP 104/39
[2020-01-06 23:52] LABS: APPEARANCE,URINE CLOUDY; COLOR,URINE YELLOW; LEUKOCYTE ESTERASE ,URINE 3+ (NEGATIVE)
[2020-01-07] VITALS (9 sets, daily range): BP systolic 104–158; BP diastolic 34–65
--- NOTE | 2020-01-07 | NUR ---
ED Nurse Note: Pt resting in bed, no acute distress noted. Vitals are stable for pt, although pt HR is still tachy at 104. ERMD aware of pt HR.
[2020-01-07] MEDS ORDERED: cefTRIAXone 1 GM in NS 55 ML IVPB ONE (01:45)
--- NOTE | 2020-01-07 02:00 | NUR ---
ED Nurse Note: Pt sleeping in bed at this time. No acute distress noted. VSS. Will continue to monitor.
--- NOTE | 2020-01-07 04:30 | NUR ---
ED Nurse Note: Pt is sleeping at this time. VSS. no acute distress noted. Will continue to monitor.
--- NOTE | 2020-01-07 06:00 | NUR ---
ED Nurse Note: Pt was sleeping comfortably in bed, pt woken up for velásqeuz insertion. VSS. No acute distress noted. Pt appears to be in no pain at this time. Will continue to monitor.
[2020-01-07] MEDS: NovoLOG Insulin Flexpen SUBQ SCH ×4 (06:30→20:48)
--- NOTE | 2020-01-07 07:10 | NUR ---
HAND-OFF: Report given to RAJIV Fang and endorsed plan of care.
--- NOTE | 2020-01-07 07:46 | NUR ---
ED Nurse Note: telephone report given to flor [facility] for continuity of care
--- NOTE | 2020-01-07 08:00 | NUR ---
TRANSFER TO FLOOR: Patient transferred to tele as ordered, per ermd. Report given to flor green. Belongings and medications given to flor green.
--- NOTE | 2020-01-07 08:37 | NUR ---
NURSE NOTES: Pt was admitted from ED via [facility]. AAO x 1-2. RA. No c/o of pain/distress. IV on L hand 20g noted. nuclear monitoring technician is on. FC intact and draining by gravity. Belongings wagner accounted. Orientation on new unit given. Patient is bedbound and high risk for fall, but does not try to get out of the bed. Paged for admission order and awaiting for response. Side rails x 2. Bed in the lowest, locked, and alarm on. Call light within reach. Will continue to monitor
[2020-01-07] MEDS: Piperacillin/Tazobactam 3.375 GM in NS 110 ML IVPB SCH ×2 (10:13→20:47)
[2020-01-07 10:44] LABS: ANION GAP 20 mmol/L (5-15); BLOOD UREA NITROGEN 110 mg/dL (7-18); CALCIUM 8.5 MG/DL (8.5-10.1); CARBON DIOXIDE 14 MMOL/L (21-32); CHLORIDE 124 MMOL/L (98-107); CREATININE 4.3 MG/DL (0.55-1.30); POTASSIUM 4.9 MMOL/L (3.5-5.1); SODIUM 158 MMOL/L (136-145)
--- NOTE | 2020-01-07 12:45 | NUR ---
CASE MANAGEMENT:REVIEW 89YR OLD FEMALE BIBA FROM [facility] CC: ABNORMAL LABS SI: SEPSIS. HYPERKALEMIA. HYPERNATREMIA PAUL. UTI 100.6 116 18 82/47 100% ON RA WBC+12.1 NA-161 K+6.0 IS: TYLENOL PO 1.4L NS IVF@125/HR IV INSULIN IV CA GLUCONATE IV LASIX IV ROCEPHIN : TO TELEMETRY DCP: RETURN TO [facility]
--- NOTE | 2020-01-07 13:00 | Consultation ---
DATE OF CONSULTATION: 01/07/2020 CARDIOLOGY CONSULTATION CONSULTING PHYSICIAN: Kevin Zapata M.D. REQUESTING PHYSICIAN: Maximino Harmon M.D. REASON FOR CONSULTATION: Severe dehydration and shock. HISTORY OF PRESENT ILLNESS: This is an 89-year-old [place] female. She resides at a retirement facility. She was notably withdrawn and lethargic over the past few days. She had abnormal laboratory studies that prompted initiation of IV fluids. Her condition did not adequately improved. She continued to have worsening renal function and lethargy and was transferred to the emergency room. There, she was noted to be hypotensive with multiple laboratory abnormalities prompting this consultation. The patient was started on metformin about a month ago after noted to be having elevated glucose readings. PAST MEDICAL HISTORY: Includes hypertension, sinus node disease with bradycardia, protein-calorie malnutrition, cerebrovascular disease with dementia, type 2 diabetes mellitus, peripheral artery disease with microangiopathy, history of left leg ulcer and cellulitis, history of hypothermia, history of dehydration, history of metabolic and toxic encephalopathy, and dysphagia. ALLERGIES: None known. FAMILY HISTORY: Noncontributory. SOCIAL HISTORY: Negative for smoking, alcohol, or substance abuse. She used to live in an assisted living facility over the past month, she has been at a retirement facility. Advanced directives. Full Code. MEDICATIONS: Prior to admission, reviewed, and reconciled. REVIEW OF SYSTEMS: Not obtainable from the patient. Pertinent data from prior record is reviewed. PHYSICAL EXAMINATION: GENERAL: Withdrawn, lethargic. VITAL SIGNS: Blood pressure 82/47, , temperature 100.6, temporal wasting. Conjunctiva pallor. Oropharynx clear. Mucous membranes are dry. NECK: Supple. LUNGS: With bilateral breath sounds. No wheezing. CARDIAC: Regular rhythm. Rapid rate. Normal S1, S2 with no murmur, rub, or gallop. ABDOMEN: Soft, flat, nontender. EXTREMITIES: No edema. There is no apparent decubitus. NEUROLOGIC: Reveals her to be responsive to verbal stimuli, but minimally interactive. Strength is symmetric. LABORATORY AND DIAGNOSTIC DATA: EKG sinus tachycardia with nonspecific ST-T wave changes. Urinalysis, too numerous to count white cells. White count 12.1, hemoglobin 12.1. Sodium 161, potassium 6, bicarb 11, chloride 125, BUN 130, creatinine 4.9, glucose 245, lactic acid 2.0. Troponin 0.041. Albumin 3.3, phosphorus 7.7. Chest x-ray with no acute process. IMPRESSION: 1. Sepsis due to urinary tract infection. 2. Metabolic and toxic encephalopathies. 3. Hypovolemic shock. 4. Dehydration. 5. Hypernatremia. 6. Hyperkalemia. 7. Hyperchloremia. 8. Metabolic acidosis. 9. Acute renal failure. 10. Type 2 diabetes mellitus with hyperglycemia. 11. Cerebrovascular disease with dementia secondary to sinus tachycardia. PLAN: Volume resuscitation with saline until blood pressure stabilizes. Then, hypotonic IV fluids should be initiated. The patient already received Kayexalate, insulin, and glucose in the emergency room. Repeat potassium will be checked, monitor renal parameters, hold metformin, monitor acid-base parameters. Follow up troponin level. Cardiac monitoring. Aspiration precautions, panculture, broad-spectrum antibiotics, and avoiding pressors at this time. Kevin Zapata M.D. DR: LO JOB#: [id number] CC:
--- NOTE | 2020-01-07 14:30 | NUR ---
NURSE NOTES:WOUND CARE NOTES:Pt presented on admission with DTPI sacral area. Base of wound is maroon (L)5.5cm x (W04.5cm with area that is purple and indurated at sacrococcygeal area(L)1cm x (W)0.6cm.Pt moaned when affected area minimally palpated. Senile purpura noted to jasbir/lower L tibia. Both heels are boggy with non-blanching erythema. Pt did not exhibit any distress when each heel individually palpated. Tx.plan: Apply Moisture Barrier paste to Sacrum. Cover with Optifoam drsg. Changee very 3 days and prn. Apply Cavilon Skin Barrier to both heels. Cover each heel with Optifoam drsg. Change every 7 days and prn. Apply Cavilon Skin Barrier to jasbir L tibia. Cover with Optifoam drsg. Change every 7 days and prn. APM/MEGHA mattress overlay. Reposition at l;east every 2hours or as tolerated. Off-load heels with pillow.
--- NOTE | 2020-01-07 15:15 | Consultation ---
DATE OF CONSULTATION: 01/07/2020 INFECTIOUS DISEASES CONSULTATION CONSULTING PHYSICIAN: Johnathan Caldwell M.D. REFERRING PHYSICIAN: Kevin Zapata M.D. REASON FOR CONSULTATION: Urinary tract infection. HISTORY OF PRESENTING ILLNESS: This is an 89-year-old lady with history of dementia, diabetes, hypertension, hyperlipidemia who came in because she has not been eating over the past few days. She was found to have elevated BUN and creatinine and lethargic. She was also found to have urinary tract infection and she was hypotensive. An Infectious Diseases consultation has been obtained for antibiotics. PAST MEDICAL HISTORY: 1. History of diabetes. 2. Hypertension. 3. Hyperlipidemia. 4. Dementia. SOCIAL HISTORY: Unknown. FAMILY HISTORY: Unknown. REVIEW OF SYSTEMS: Unable to obtain currently. MEDICATIONS: As an inpatient, she is on subcutaneous heparin, Zosyn, insulin. ALLERGIES: No known drug allergies. PHYSICAL EXAMINATION: VITAL SIGNS: Temperature of 98.3, T-max of 100.6, pulse of 78, respiratory rate 15, blood pressure 114/97, O2 saturation of 99%. HEENT: Pupils equally reactive to light and accommodation. Mouth appears clean without thrush. NECK: Supple. No adenopathy. No JVD. CARDIOVASCULAR: Regular rate and rhythm. No murmurs. LUNGS: Clear to auscultation bilaterally. No crackles. No wheezes. ABDOMEN: Soft, nontender. No organomegaly. EXTREMITIES: No cyanosis, no clubbing, no edema. LABORATORY AND DIAGNOSTIC DATA: White count 12.1, hemoglobin 12.1, hematocrit 40.5, MCV 99, platelet count of 194 with neutrophils of 71%. Sodium 161, potassium 6, chloride 125, bicarb 11, BUN 130, creatinine 4.9, glucose 245, calcium 8.6. Total bilirubin 0.3, AST 16, ALT 20, alkaline phosphatase 37. CK of 44, CK-MB 1.5. Troponin 0.04. Total protein 7.3, albumin 3.3. UA is showing too numerous to count white cells. ASSESSMENT: This is an 89-year-old lady with history of diabetes, hypertension, hyperlipidemia, dementia who comes in with poor eating and lethargy and is found to have. 1. Urinary tract infection. 2. Diabetes. 3. Hypertension. 4. Hypernatremia. PLAN: 1. We will follow up on blood cultures. 2. We will order urine cultures. 3. Continue Zosyn for now. 4. We will follow up cultures and adjust antibiotics accordingly. I would like to thank, Dr. Zapata, for this consultation. Keonuntanusha Caldwell M.D. DR: TIM JOB#: [id number] CC: Kevin Zapata M.D.
--- NOTE | 2020-01-07 16:27 | Consultation ---
History of Present Illness General Date patient seen: Jan 07, 2020 Chief Complaint: Abnormal Labs Present Illness HPI 89-year-old female history of severe dementia, Pashto speaking only, hypertension, hyperlipidemia, diabetes presents for evaluation of abnormal labs. According to EMS she has not been eating over the past few days. Her potassium, BUN and creatinine were found to be elevated in outpatient lab testing. She is more lethargic and somnolent than usual but they denied any vomiting or diarrhea. Patient does not provide any history given her severe dementia. She arrives slightly hypotensive with systolics in the 70s and 80s as well as borderline febrile. On admission noted to have sacral dti and abnormal left leg wound. failure to thrive. surgery called to evaluate and assist with care. patient seen, chart reviewed, patient examined. PMH: Severe dementia, diabetes, hypertension PSH: Reviewed Allergies: None listed in medical chart Social Hx: Unknown Allergies: Coded Allergies: No Known Allergies (Unverified , 11/03/19) Medication History Scheduled Donepezil Hcl* (Donepezil Hcl*), 5 MG ORAL DAILY, (Reported) Donepezil Hcl* (Donepezil Hcl*), 10 MG ORAL DAILY, (Reported) Ferrous Sulfate* (Ferrous Sulfate*), 325 MG ORAL DAILY, (Reported) Glipizide* (Glipizide*), 5 MG ORAL DAILY, (Reported) Insulin Detemir (Levemir), 20 SUBQ ACBREAKFAST, (Reported) Levocetirizine Dihydrochloride (Levocetirizine Dihydrochloride), 5 MG ORAL DAILY , (Reported) Losartan Potassium* (Losartan Potassium*), 25 MG ORAL DAILY, (Reported) Losartan Potassium* (Losartan Potassium*), 50 MG ORAL DAILY, (Reported) Memantine Hcl* (Namenda*), 28 MG ORAL DAILY, (Reported) Metformin Hcl* (Metformin Hcl*), 1,000 MG ORAL TWICE A DAY, (Reported) Mirtazapine* (Mirtazapine*), 7.5 MG ORAL BEDTIME, (Reported) Rosuvastatin Calcium (Crestor), 5 MG ORAL DAILY, (Reported) Sitagliptin Phos/Metformin Hcl (Janumet 50-1,000 Mg Tablet), 1 TAB ORAL DAILY, ( Reported) Triamcinolone Acetonide (Triamcinolone Acetonide 0.1% Oint*), 0 TP TWICE A DAY, (Reported) Patient History Limited by: age, medical condition History Provided By: Medical Record, PMD Healthcare decision maker Resuscitation status Full Code Advanced Directive on File Past Medical/Surgical History Past Medical/Surgical History: (1) Toxic metabolic encephalopathy (2) Severe protein-calorie malnutrition (3) Hyperkalemia (4) Hypernatremia (5) Sepsis (6) UTI (urinary tract infection) (7) PAUL (acute kidney injury) Review of Systems ROS Narrative cannot obtain given patients medical condition Physical Exam General Appearance: no apparent distress, alert, confused Lines, tubes and drains: peripheral HEENT: normocephalic, atraumatic, mucous membranes moist Neck: non-tender, normal alignment, supple, normal inspection Respiratory/Chest: lungs clear, normal breath sounds, no respiratory distress, no accessory muscle use Abdomen: normal bowel sounds, non tender, soft, no organomegaly, no mass Extremities: normal range of motion, normal inspection, inflammation, slow capillary refill, other Skin Exam: warm/dry Neurologic: alert Last 24 Hour Vital Signs Date Time Temp Pulse Resp B/P (MAP) Pulse Ox O2 Delivery O2 Flow Rate FiO2 01/07/20 12:00 86 01/07/20 08:27 Room Air 01/07/20 08:17 Room Air 01/07/20 08:07 98.3 78 15 114/97 99 Room Air 01/07/20 08:00 79 01/07/20 07:05 98.2 77 14 126/48 100 Room Air 01/07/20 06:00 98.2 85 15 112/48 100 Room Air 01/07/20 04:30 98.2 86 16 123/49 100 Room Air 01/07/20 02:00 98.2 90 13 104/34 100 Room Air 01/07/20 00:40 100.6 101 18 107/45 100 Room Air 01/06/20 23:30 100.6 110 18 104/39 100 Room Air 01/06/20 22:35 98.2 01/06/20 21:12 100.6 116 82/47 (59) Intake and Output 01/06/20 01/07/20 19:00 07:00 Intake Total 500 ml Balance 500 ml Intake Oral 0 ml IV Total 500 ml Laboratory Tests Test 2/10/20 21:45 01/06/20 23:00 01/07/20 10:00 White Blood Count 12.1 K/UL (4.8-10.8) H Red Blood Count 4.09 M/UL (4.20-5.40) L Hemoglobin 12.1 G/DL (12.0-16.0) Hematocrit 40.5 % (37.0-47.0) Mean Corpuscular Volume 99 FL (80-99) Mean Corpuscular Hemoglobin 29.6 PG (27.0-31.0) Mean Corpuscular Hemoglobin Concent 29.9 G/DL (32.0-36.0) L Red Cell Distribution Width 15.6 % (11.6-14.8) H Platelet Count 194 K/UL (150-450) Mean Platelet Volume 6.8 FL (6.5-10.1) Neutrophils (%) (Auto) 71.6 % (45.0-75.0) Lymphocytes (%) (Auto) 20.2 % (20.0-45.0) Monocytes (%) (Auto) 7.7 % (1.0-10.0) Eosinophils (%) (Auto) 0.0 % (0.0-3.0) Basophils (%) (Auto) 0.5 % (0.0-2.0) Sodium Level 161 MMOL/L (136-145) *H 158 MMOL/L (136-145) H Potassium Level 6.0 MMOL/L (3.5-5.1) *H 4.9 MMOL/L (3.5-5.1) Chloride Level 125 MMOL/L (98-107) H 124 MMOL/L (98-107) H Carbon Dioxide Level 11 MMOL/L (21-32) L 14 MMOL/L (21-32) L Anion Gap 25 mmol/L (5-15) H 20 mmol/L (5-15) H Blood Urea Nitrogen 130 mg/dL (7-18) H 110 mg/dL (7-18) H Creatinine 4.9 MG/DL (0.55-1.30) H 4.3 MG/DL (0.55-1.30) H Estimat Glomerular Filtration Rate mL/min (>60) mL/min (>60) Glucose Level 245 MG/DL (74-106) H 219 MG/DL (74-106) H Lactic Acid Level 2.00 mmol/L (0.4-2.0) Calcium Level 8.6 MG/DL (8.5-10.1) 8.5 MG/DL (8.5-10.1) Phosphorus Level 7.7 MG/DL (2.5-4.9) H Magnesium Level 2.7 MG/DL (1.8-2.4) H Total Bilirubin 0.3 MG/DL (0.2-1.0) Aspartate Amino Transf (AST/SGOT) 16 U/L (15-37) Alanine Aminotransferase (ALT/SGPT) 20 U/L (12-78) Alkaline Phosphatase 37 U/L (46-116) L Total Creatine Kinase 44 U/L (26-308) Creatine Kinase MB 1.5 NG/ML (0.0-3.6) Creatine Kinase MB Relative Index 3.4 Troponin I 0.041 ng/mL (0.000-0.056) 0.045 ng/mL (0.000-0.056) Total Protein 7.3 G/DL (6.4-8.2) Albumin 3.3 G/DL (3.4-5.0) L Globulin 4.0 g/dL Albumin/Globulin Ratio 0.8 (1.0-2.7) L Urine Color Yellow Urine Appearance Cloudy Urine pH 5 (4.5-8.0) Urine Specific [place] 1.025 (1.005-1.035) Urine Protein 3+ (NEGATIVE) H Urine Glucose (UA) Negative (NEGATIVE) Urine Ketones 1+ (NEGATIVE) H Urine Blood 3+ (NEGATIVE) H Urine Nitrite Negative (NEGATIVE) Urine Bilirubin 1+ (NEGATIVE) H Urine Ictotest Negative (NEGATIVE) Urine Urobilinogen Normal MG/DL (0.0-1.0) Urine Leukocyte Esterase 3+ (NEGATIVE) H Urine RBC 10-15 /HPF (0 - 2) H Urine WBC Tntc /HPF (0 - 2) H Urine Squamous Epithelial Cells Many /LPF (NONE/OCC) H Urine Bacteria Many /HPF (NONE) H Microbiology Date/Time Source Procedure Growth Status 01/07/20 03:30 Rectum Received Height (Feet): 5 Height (Inches): 0.00 Weight (Pounds): 106 Medications Current Medications Medications (Trade) Dose Ordered Sig/Luz Maria Route PRN Reason Start Time Stop Time Status Last Admin Dose Admin Dextrose (Dextrose 50%) 25 ml Q30M PRN IV Hypoglycemia 01/07/20 03:45 02/06/20 03:44 Dextrose (Dextrose 50%) 50 ml Q30M PRN IV Hypoglycemia 01/07/20 03:45 02/06/20 03:44 Heparin Sodium (Porcine) (Heparin 5000 units/ml) 5,000 units EVERY 12 HOURS SUBQ 01/07/20 21:00 02/06/20 20:59 Insulin Aspart (NovoLOG) BEFORE MEALS AND HS SUBQ 01/07/20 06:30 02/06/20 06:29 01/07/20 12:10 Piperacillin Sod/ Tazobactam Sod 3.375 gm/Sodium Chloride 110 ml @ 27.5 mls/hr Q12H IVPB 01/07/20 09:00 01/14/20 08:59 01/07/20 10:13 Sodium Chloride 1,000 ml @ 150 mls/hr Q6H40M IV 01/08/20 04:00 02/07/20 03:59 01/07/20 13:00 Assessment/Plan Problem List: (1) Deep tissue injury Assessment & Plan: 89-year-old female multiple medical comorbidities presented with leukocytosis, abnormal labs, dehydration, UTI, identified to have sacral DTI. At the top examination completed and patient evaluated. Multiple areas of possible decline identified. No acute surgical intervention indicated or recommended Appropriate wound care instructions were given Apply skin protectant and OPTi foam dressing to sacral area and bilateral heels. Change q. 3 days. Turn every 2 hours Offload pressure Heel protectors and elevate heels with pillow Nutritional optimization Given patient's age, nutritional status, overall condition she is at high risk for further development of worsening decubitus. Will need to keep close monitoring to ensure above care plan Thank you for let me participate in patient's care will follow with recommendations ICD Codes: T14.8XXA - Other injury of unspecified body region, initial encounter SNOMED: 110300753 (2) Severe protein-calorie malnutrition ICD Codes: E43 - Unspecified severe protein-calorie malnutrition SNOMED: 282037183, 374228206, 074740953 (3) Leukocytosis Assessment & Plan: Patient presented with leukocytosis abnormal labs dehydration and UTI. Patient identified to have decubitus ulcer with deep tissue injury concerning for possible infectious process. No acute infection seen from DTI and leukocytosis likely from UTI. Antibiotics as per primary. ICD Codes: D72.829 - Elevated white blood cell count, unspecified SNOMED: 981992031, 848694085 Ibrahima Connors Jan 07, 2020 16:27
--- NOTE | 2020-01-07 16:30 | Diagnostic Imaging Report ---
Indication: Shortness of breath Technique: One view of the chest Comparison: 11/03/2019 Findings: Somewhat dense 1 cm left midlung nodule is again demonstrated. There is now suggestion of more ill-defined nodular opacities cephalad and from this. The remainder the lungs and pleural spaces are clear. The heart size is normal. The aorta is calcified Impression: Left midlung nodule, also previously reported Possible new left lung nodules. No acute process
--- NOTE | 2020-01-07 19:34 | NUR ---
HAND-OFF: Report given to RAJIV Betancur.
--- NOTE | 2020-01-07 19:35 | NUR ---
OBTAINED REPORT FROM MIRELA VANCE. PT IN NO APPARENT DISTRESS.
[2020-01-07] MEDS: Heparin 5000 units/ml inj SUBQ SCH (20:47)
--- NOTE | 2020-01-07 23:45 | Consultation ---
DATE OF CONSULTATION: 01/07/2020 CONSULTING PHYSICIAN: Randolph Gonzalez M.D. REFERRING PHYSICIAN: Maximino Harmon M.D. REASON FOR CONSULTATION: Elevated BUN and creatinine. HISTORY OF PRESENT ILLNESS: The patient is an 89-year-old lady, who presents from the senior living home weak, lethargic, not speaking, found to have elevated renal function and hypotension. The patient has a history of diabetes and started on metformin about a month ago. PAST MEDICAL HISTORY: There is a history of sinus node disease and bradycardia, cerebrovascular disease with dementia, type 2 diabetes, peripheral artery disease, history of left leg ulcer and cellulitis, history of prior dehydration, history of dysphagia. MEDICATIONS: From the facility, I reviewed in the chart. The patient is unable to give any history. SYSTEM REVIEW: The patient is unable. PHYSICAL EXAMINATION: GENERAL: The patient is lying in bed, in position, nonverbal. VITAL SIGNS: Temperature 97.5, pulse 86, respirations 20, and blood pressure 111/57. HEENT: She keeps her eyes closed during the exam. Oral mucosa is dry. NECK: No adenopathy. LUNGS: Clear. HEART: Regular rhythm. ABDOMEN: Soft without organomegaly or masses. EXTREMITIES: No edema, cyanosis, or clubbing. There is muscle ache. NEUROLOGIC: She remains in position and sleeping, possibly . LABORATORY DATA: Pertinent labs show white count of 12.1 and hemoglobin is 12.1. Sodium 161, potassium 6, BUN 130, creatinine 4.9 on presentation to the emergency room. Repeat sodium 158, potassium 4.9, chloride 124, CO2 14, BUN 110, and creatinine is 4.3. Troponin 0.045. Total CK is 44. Albumin 3.3. Lactic acid 2.0. Urinalysis shows too numerous to count white cells. IMPRESSION: 1. Acute kidney injury likely from dehydration. Uncertain if the patient has chronic kidney disease, but she did have a prior hospitalization and I will try to find out the results of her prior creatinine. 2. Severe dehydration. 3. Hypernatremia. 4. Acidosis. 5. Urinary tract infection. 6. Vascular dementia. 7. Diabetes. PLAN: The patient will be hydrated with half-normal saline vigorously. Labs should be monitored. Continue broad-spectrum antibiotics. Her condition is guarded especially with her history of underlying dementia and . Randolph Gonzalez M.D. DR: NNEKA JOB#: [id number] CC:
[2020-01-08] VITALS: BP 112/66
[2020-01-08 04:00] VITALS: BP 116/68
[2020-01-08] MEDS: NovoLOG Insulin Flexpen SUBQ SCH ×4 (06:17→21:03)
--- NOTE | 2020-01-08 07:05 | NUR ---
GAVE FULL REPORT TO SHALONDA VANCE. PT IN NO APPARENT DISTRESS.
--- NOTE | 2020-01-08 07:44 | NUR ---
NURSE NOTES: Received patient from Jesika Shelby. Patient is sleeping comfortably in bed. No sign and symptoms of pain or discomfort. IVF running at 150 ml/hr via right peripheral IV .Fall precautions in place, Call webb within patients reached. Will follow.
[2020-01-08 07:52] LABS: BASOPHILS % (AUTO) 0.5 % (0.0-2.0); EOSINOPHILS % (AUTO) 1.2 % (0.0-3.0); HEMATOCRIT 35.9 % (37.0-47.0); LYMPHOCYTES % (AUTO) 24.6 % (20.0-45.0); MEAN CORPUSCULAR VOLUME 93 FL (80-99); MONOCYTES % (AUTO) 5.5 % (1.0-10.0); NEUTROPHILS % (AUTO) 68.1 % (45.0-75.0); PLATELET COUNT 154 K/UL (150-450); RED BLOOD COUNT 3.88 M/UL (4.20-5.40); RED CELL DISTRIBUTION WIDTH 14.3 % (11.6-14.8); WHITE BLOOD COUNT 9.5 K/UL (4.8-10.8)
[2020-01-08 08:00] VITALS: BP 144/71
[2020-01-08 08:38] LABS: ALANINE AMINOTRANSFERASE 13 U/L (12-78); ALBUMIN/GLOBULIN RATIO 0.8 (1.0-2.7); ALKALINE PHOSPHATASE 32 U/L (46-116); ANION GAP 16 mmol/L (5-15); ASPARTATE AMINO TRANSFERASE 22 U/L (15-37); BILIRUBIN,TOTAL 0.5 MG/DL (0.2-1.0); BLOOD UREA NITROGEN 85 mg/dL (7-18); CALCIUM 8.3 MG/DL (8.5-10.1); CARBON DIOXIDE 17 MMOL/L (21-32); CHLORIDE 122 MMOL/L (98-107); CREATININE 3.1 MG/DL (0.55-1.30); POTASSIUM 4.3 MMOL/L (3.5-5.1); SODIUM 154 MMOL/L (136-145)
--- NOTE | 2020-01-08 09:31 | Surgery Progress Note ---
Surgery Progress Note Subjective Additional Comments No acute events. Leukocytosis resolved. Doing well. Comfortable appearing. Turned on side. Objective Last 24 Hour Vital Signs Date Time Temp Pulse Resp B/P (MAP) Pulse Ox O2 Delivery O2 Flow Rate FiO2 01/08/20 04:00 97.5 80 18 116/68 (84) 96 01/08/20 04:00 83 01/08/20 00:00 97.5 78 18 112/66 (81) 97 01/08/20 00:00 82 01/07/20 20:00 97.0 80 18 114/65 (81) 95 01/07/20 20:00 Room Air 01/07/20 20:00 80 01/07/20 16:00 97.3 86 20 158/65 (96) 98 01/07/20 16:00 79 01/07/20 12:00 86 01/07/20 12:00 97.5 82 20 111/57 (75) 97 I&O Intake and Output 01/07/20 01/08/20 19:00 07:00 Intake Total 260.0 ml Output Total 2800 ml Balance 260.0 ml -2800 ml IV Total 260.0 ml Output Urine Total 2800 ml # Bowel Movements 1 Dressing: dry Wound: clean Cardiovascular: RSR Respiratory: clear Abdomen: soft, non-tender, present bowel sounds Extremities: no cyanosis Laboratory Tests Test 01/07/20 10:00 01/08/20 05:50 Sodium Level 158 MMOL/L (136-145) H 154 MMOL/L (136-145) H Potassium Level 4.9 MMOL/L (3.5-5.1) 4.3 MMOL/L (3.5-5.1) Chloride Level 124 MMOL/L (98-107) H 122 MMOL/L (98-107) H Carbon Dioxide Level 14 MMOL/L (21-32) L 17 MMOL/L (21-32) L Anion Gap 20 mmol/L (5-15) H 16 mmol/L (5-15) H Blood Urea Nitrogen 110 mg/dL (7-18) H 85 mg/dL (7-18) H Creatinine 4.3 MG/DL (0.55-1.30) H 3.1 MG/DL (0.55-1.30) H Estimat Glomerular Filtration Rate mL/min (>60) 14.2 mL/min (>60) Glucose Level 219 MG/DL (74-106) H 164 MG/DL (74-106) H Calcium Level 8.5 MG/DL (8.5-10.1) 8.3 MG/DL (8.5-10.1) L Troponin I 0.045 ng/mL (0.000-0.056) White Blood Count 9.5 K/UL (4.8-10.8) Red Blood Count 3.88 M/UL (4.20-5.40) L Hemoglobin 12.0 G/DL (12.0-16.0) Hematocrit 35.9 % (37.0-47.0) L Mean Corpuscular Volume 93 FL (80-99) Mean Corpuscular Hemoglobin 31.0 PG (27.0-31.0) Mean Corpuscular Hemoglobin Concent 33.5 G/DL (32.0-36.0) Red Cell Distribution Width 14.3 % (11.6-14.8) Platelet Count 154 K/UL (150-450) Mean Platelet Volume 6.3 FL (6.5-10.1) L Neutrophils (%) (Auto) 68.1 % (45.0-75.0) Lymphocytes (%) (Auto) 24.6 % (20.0-45.0) Monocytes (%) (Auto) 5.5 % (1.0-10.0) Eosinophils (%) (Auto) 1.2 % (0.0-3.0) Basophils (%) (Auto) 0.5 % (0.0-2.0) Total Bilirubin 0.5 MG/DL (0.2-1.0) Aspartate Amino Transf (AST/SGOT) 22 U/L (15-37) Alanine Aminotransferase (ALT/SGPT) 13 U/L (12-78) Alkaline Phosphatase 32 U/L (46-116) L Total Protein 7.0 G/DL (6.4-8.2) Albumin 3.0 G/DL (3.4-5.0) L Globulin 4.0 g/dL Albumin/Globulin Ratio 0.8 (1.0-2.7) L Thyroid Stimulating Hormone (TSH) 0.115 uiU/mL (0.358-3.740) Plan Problems: (1) Deep tissue injury Assessment & Plan: 89-year-old female multiple medical comorbidities presented with leukocytosis, abnormal labs, dehydration, UTI, identified to have sacral DTI. At the top examination completed and patient evaluated. Multiple areas of possible decline identified. No acute surgical intervention indicated or recommended Appropriate wound care instructions were given Apply skin protectant and OPTi foam dressing to sacral area and bilateral heels. Change q. 3 days. Turn every 2 hours Offload pressure Heel protectors and elevate heels with pillow Nutritional optimization Given patient's age, nutritional status, overall condition she is at high risk for further development of worsening decubitus. Will need to keep close monitoring to ensure above care plan Thank you for let me participate in patient's care will follow with recommendations (2) Severe protein-calorie malnutrition (3) Leukocytosis Assessment & Plan: Patient presented with leukocytosis abnormal labs dehydration and UTI. Patient identified to have decubitus ulcer with deep tissue injury concerning for possible infectious process. No acute infection seen from DTI and leukocytosis likely from UTI. Antibiotics as per primary. Ibrahima Connors Jan 08, 2020 09:31
[2020-01-08] MEDS: Piperacillin/Tazobactam 3.375 GM in NS 110 ML IVPB SCH (09:34)
[2020-01-08] MEDS: Heparin 5000 units/ml inj SUBQ SCH ×2 (09:38→21:03)
--- NOTE | 2020-01-08 10:24 | Infectious Diseases Prog Note ---
Assessment/Plan Assessment/Plan antibiotics : zosyn A 1. gram negative UTI 2. leucocytosis improving 3. diabetes mellitus 4. hypertension 5. dementia 6. hypernatremia improving P 1. continue zosyn 2. will follow up cultures Subjective ROS Limited/Unobtainable: Yes Allergies: Coded Allergies: No Known Allergies (Unverified , 11/03/19) Objective Vital Signs Last 24 Hour Vital Signs Date Time Temp Pulse Resp B/P (MAP) Pulse Ox O2 Delivery O2 Flow Rate FiO2 01/08/20 08:00 97.2 86 18 144/71 (95) 97 01/08/20 04:00 97.5 80 18 116/68 (84) 96 01/08/20 04:00 83 01/08/20 00:00 97.5 78 18 112/66 (81) 97 01/08/20 00:00 82 01/07/20 20:00 97.0 80 18 114/65 (81) 95 01/07/20 20:00 Room Air 01/07/20 20:00 80 01/07/20 16:00 97.3 86 20 158/65 (96) 98 01/07/20 16:00 79 01/07/20 12:00 86 01/07/20 12:00 97.5 82 20 111/57 (75) 97 Height (Feet): 5 Height (Inches): 0.00 Weight (Pounds): 106 Respiratory/Chest: lungs clear Cardiovascular: normal rate, regular rhythm, no gallop/murmur Abdomen: soft, non tender Extremities: no edema Microbiology Date/Time Source Procedure Growth Status 01/06/20 22:00 Blood Blood Culture - Preliminary NO GROWTH AFTER 24 HOURS Resulted 01/06/20 21:45 Blood Blood Culture - Preliminary NO GROWTH AFTER 24 HOURS Resulted 01/07/20 10:50 Urine,Clean Catch Urine Culture - Preliminary NO GROWTH Resulted 01/06/20 23:00 Urine,Clean Catch Urine Culture - Preliminary Gram Negative Bacillus 1 Resulted 01/07/20 03:30 Rectum Received Laboratory Tests Test 01/08/20 05:50 White Blood Count 9.5 K/UL (4.8-10.8) Red Blood Count 3.88 M/UL (4.20-5.40) L Hemoglobin 12.0 G/DL (12.0-16.0) Hematocrit 35.9 % (37.0-47.0) L Mean Corpuscular Volume 93 FL (80-99) Mean Corpuscular Hemoglobin 31.0 PG (27.0-31.0) Mean Corpuscular Hemoglobin Concent 33.5 G/DL (32.0-36.0) Red Cell Distribution Width 14.3 % (11.6-14.8) Platelet Count 154 K/UL (150-450) Mean Platelet Volume 6.3 FL (6.5-10.1) L Neutrophils (%) (Auto) 68.1 % (45.0-75.0) Lymphocytes (%) (Auto) 24.6 % (20.0-45.0) Monocytes (%) (Auto) 5.5 % (1.0-10.0) Eosinophils (%) (Auto) 1.2 % (0.0-3.0) Basophils (%) (Auto) 0.5 % (0.0-2.0) Sodium Level 154 MMOL/L (136-145) H Potassium Level 4.3 MMOL/L (3.5-5.1) Chloride Level 122 MMOL/L (98-107) H Carbon Dioxide Level 17 MMOL/L (21-32) L Anion Gap 16 mmol/L (5-15) H Blood Urea Nitrogen 85 mg/dL (7-18) H Creatinine 3.1 MG/DL (0.55-1.30) H Estimat Glomerular Filtration Rate 14.2 mL/min (>60) Glucose Level 164 MG/DL (74-106) H Calcium Level 8.3 MG/DL (8.5-10.1) L Total Bilirubin 0.5 MG/DL (0.2-1.0) Aspartate Amino Transf (AST/SGOT) 22 U/L (15-37) Alanine Aminotransferase (ALT/SGPT) 13 U/L (12-78) Alkaline Phosphatase 32 U/L (46-116) L Total Protein 7.0 G/DL (6.4-8.2) Albumin 3.0 G/DL (3.4-5.0) L Globulin 4.0 g/dL Albumin/Globulin Ratio 0.8 (1.0-2.7) L Thyroid Stimulating Hormone (TSH) 0.115 uiU/mL (0.358-3.740) Current Medications Medications (Trade) Dose Ordered Sig/Luz Maria Route PRN Reason Start Time Stop Time Status Last Admin Dose Admin Dextrose (Dextrose 50%) 25 ml Q30M PRN IV Hypoglycemia 01/07/20 03:45 02/06/20 03:44 Dextrose (Dextrose 50%) 50 ml Q30M PRN IV Hypoglycemia 01/07/20 03:45 02/06/20 03:44 Heparin Sodium (Porcine) (Heparin 5000 units/ml) 5,000 units EVERY 12 HOURS SUBQ 01/07/20 21:00 02/06/20 20:59 01/08/20 09:38 Insulin Aspart (NovoLOG) BEFORE MEALS AND HS SUBQ 01/07/20 06:30 02/06/20 06:29 01/08/20 06:17 Piperacillin Sod/ Tazobactam Sod 3.375 gm/Sodium Chloride 110 ml @ 27.5 mls/hr Q12H IVPB 01/07/20 09:00 01/14/20 08:59 01/08/20 09:34 Sodium Chloride 1,000 ml @ 150 mls/hr Q6H40M IV 01/08/20 04:00 02/07/20 03:59 01/07/20 13:00 Johnathan Caldwell MD Jan 08, 2020 10:24
[2020-01-08 12:00] VITALS: BP 131/73
--- NOTE | 2020-01-08 12:08 | NUR ---
CASE MANAGEMENT:REVIEW 01/08/20 SI: ACUTE KIDNEY INJURY SEVERE DEHYDRATION. UTI 97.0 79 20 131/73 95% ON RA NA+154 BUN+85 CR+3.1 TSH-0.115 IS: IV ZOSYN Q8HRS IVF@150/HR HEPARIN SQ Q12 : TELEMETRY STATUS DCP: FROM [facility]
--- NOTE | 2020-01-08 15:07 | General Progress Note ---
Assessment/Plan Problem List: (1) Dehydration ICD Codes: E86.0 - Dehydration SNOMED: 28900739 (2) Hypernatremia ICD Codes: E87.0 - Hyperosmolality and hypernatremia SNOMED: 935420426 (3) Hyperkalemia ICD Codes: E87.5 - Hyperkalemia SNOMED: 84943963, 2077334 (4) UTI (urinary tract infection) ICD Codes: N39.0 - Urinary tract infection, site not specified SNOMED: 46312056 (5) PAUL (acute kidney injury) ICD Codes: N17.9 - Acute kidney failure, unspecified SNOMED: 14893147, 0745247 (6) Severe protein-calorie malnutrition ICD Codes: E43 - Unspecified severe protein-calorie malnutrition SNOMED: 479471732, 741556544, 714772618 (7) Toxic metabolic encephalopathy ICD Codes: G92 - Toxic encephalopathy SNOMED: 795020067 Assessment/Plan: cont hydration antibiotics trend lab Subjective ROS Limited/Unobtainable: Yes Allergies: Coded Allergies: No Known Allergies (Unverified , 11/03/19) Objective Last 24 Hour Vital Signs Date Time Temp Pulse Resp B/P (MAP) Pulse Ox O2 Delivery O2 Flow Rate FiO2 01/08/20 12:00 97.0 79 20 131/73 (92) 95 01/08/20 12:00 76 01/08/20 09:00 Room Air 01/08/20 08:00 97.2 86 18 144/71 (95) 97 01/08/20 08:00 80 01/08/20 04:00 97.5 80 18 116/68 (84) 96 01/08/20 04:00 83 01/08/20 00:00 97.5 78 18 112/66 (81) 97 01/08/20 00:00 82 01/07/20 20:00 97.0 80 18 114/65 (81) 95 01/07/20 20:00 Room Air 01/07/20 20:00 80 01/07/20 16:00 97.3 86 20 158/65 (96) 98 01/07/20 16:00 79 Intake and Output 01/07/20 01/08/20 19:00 07:00 Intake Total 260.0 ml Output Total 2800 ml Balance 260.0 ml -2800 ml IV Total 260.0 ml Output Urine Total 2800 ml # Bowel Movements 1 Laboratory Tests 01/08/20 05:50: White Blood Count 9.5, Red Blood Count 3.88L, Hemoglobin 12.0, Hematocrit 35.9L , Mean Corpuscular Volume 93, Mean Corpuscular Hemoglobin 31.0, Mean Corpuscular Hemoglobin Concent 33.5, Red Cell Distribution Width 14.3, Platelet Count 154, Mean Platelet Volume 6.3L, Neutrophils (%) (Auto) 68.1, Lymphocytes ( %) (Auto) 24.6, Monocytes (%) (Auto) 5.5, Eosinophils (%) (Auto) 1.2, Basophils (%) (Auto) 0.5, Sodium Level 154H, Potassium Level 4.3, Chloride Level 122H, Carbon Dioxide Level 17L, Anion Gap 16H, Blood Urea Nitrogen 85H, Creatinine 3.1H, Estimat Glomerular Filtration Rate 14.2, Glucose Level 164H, Calcium Level 8.3L, Total Bilirubin 0.5, Aspartate Amino Transf (AST/SGOT) 22, Alanine Aminotransferase (ALT/SGPT) 13, Alkaline Phosphatase 32L, Total Protein 7.0, Albumin 3.0L, Globulin 4.0, Albumin/Globulin Ratio 0.8L, Thyroid Stimulating Hormone (TSH) 0.115L Height (Feet): 5 Height (Inches): 0.00 Weight (Pounds): 106 General Appearance: no apparent distress, confused, thin EENT: normal ENT inspection Neck: normal alignment Cardiovascular: normal rate, regular rhythm Respiratory/Chest: lungs clear Edema: no edema noted Arm (L), no edema noted Arm (R), no edema noted Leg (L), no edema noted Leg (R), no edema noted Pedal (L), no edema noted Pedal (R), no edema noted Generalized Neurologic: job coach/job developer II-XII grossly normal, other - muscle atrophy Randolph Gonzalez MD Jan 08, 2020 15:07
[2020-01-08 16:00] VITALS: BP 132/71
[2020-01-08] MEDS: Piperacillin/Tazobactam 2.25 GM in NS 55 ML IV SCH (17:12)
--- NOTE | 2020-01-08 19:30 | NUR ---
NURSE NOTES: Received pt and report from RAJIV Robles. Pt is A/Ox1. Observed pt resting in bed with both eyes closed; arousable to voice. court recording monitor is in placed; pt is NSR. IV site intact, asymptomatic, and patent; running 1/2 NS @150cc/hr. Bed is in the lowest position and locked. Call light and bedside table is within reach. No signs/symptoms of acute distress noted at this time. Will continue plan of care.
--- NOTE | 2020-01-08 19:39 | NUR ---
HAND-OFF: Report given to Jesika Morrison. Plan of care endorsed.
[2020-01-08 20:00] VITALS: BP 133/75
[2020-01-08] MEDS ORDERED: Albuterol/Ipratropium 3ml neb HHN PRN (20:15)
--- NOTE | 2020-01-08 22:01 | History and Physical Report ---
DATE OF ADMISSION: 01/07/2020 NOTE: INCOMPLETE DICTATION: CHIEF COMPLAINT: Sepsis, shock, pneumonia. HISTORY OF PRESENT ILLNESS: This is an 89-year-old female. She currently resides [facility]. She was transferred with complaints of abnormal laboratories. On evaluation in the emergency room, laboratories were significant for a BUN of 103, potassium of 5.7. The patient in the ER was lethargic and confused and poorly responsive. On chest x-ray, she had evidence of pneumonia/lung nodules. Her sodium was 158 and potassium of 4.3. Urine showed too numerous to count wbc's. The white count was 12. The patient is now admitted for further evaluation and care. PAST MEDICAL HISTORY: As above. Maximino Harmon M.D. DR: TATI JOB#: [id number] CC:
--- NOTE | 2020-01-08 22:31 | History and Physical Report ---
DATE OF ADMISSION: 01/07/2020 CHIEF COMPLAINT: Sepsis, azotemia, and renal failure. HISTORY OF PRESENT ILLNESS: The patient is an 89-year-old female. She has a history of hypertension and diabetes. She was transferred from a shelter facility with complaints of abnormal labs. On evaluation in the emergency room, the patient was hypotensive. She had an elevated sodium of 158, BUN of over 100, and a creatinine of 4.3. She had evidence of urinary tract infection as well as possible pneumonia. She has been pancultured. She has been started on broad spectrum IV antibiotics. She is now admitted for further evaluation and care. PAST MEDICAL HISTORY: As above. PAST SURGICAL HISTORY: None. CURRENT MEDICATIONS: Reconciled and reviewed. ALLERGIES: None. FAMILY HISTORY: None. SOCIAL HISTORY: There is no known history of tobacco, ethanol, or drugs. REVIEW OF SYSTEMS: From the patient is unobtainable as she is confused. PHYSICAL EXAMINATION: VITAL SIGNS: Temperature 97.5, pulse 82, respirations 18, and blood pressure 112/66. GENERAL: The patient is a well-developed female, in no apparent distress. HEART: Regular rate and rhythm. LUNGS: Clear. ABDOMEN: Soft, nontender, and nondistended. EXTREMITIES: Without clubbing, cyanosis, or edema. LABORATORY DATA: White count 12, hemoglobin 12, hematocrit 40, and platelets of 194,000. Sodium 158, potassium 4.9, chloride 124, bicarb of 14, BUN 110, and creatinine 4.3. UA showed too numerous to count wbc's. ASSESSMENT: This is an elderly female admitted from a shelter facility with complaints of sepsis and acute renal failure, dehydration, urinary tract infection, and pneumonia. PLAN: 1. IV antibiotics, IV hydration. 2. Cardiology, Infectious Disease, Pulmonary, and Renal consultation will be obtained. 3. The patient will be aggressively hydrated. 4. We will monitor volume status closely. 5. We will monitor electrolytes closely. 6. Consider renal ultrasound if renal function does not improve. 7. We will follow pending cultures. 8. DVT and stress ulcer prophylaxes will also be instituted. 9. The patient's status is currently guarded. Maximino Uomoto, M.D. DR: ELDA JOB#: [id number] CC:
[2020-01-09] VITALS: BP 115/67
[2020-01-09] MEDS: Piperacillin/Tazobactam 2.25 GM in NS 55 ML IV SCH (00:53)
--- NOTE | 2020-01-09 01:15 | Progress Note ---
DATE: 01/08/2020 CARDIOLOGY PROGRESS NOTE OBJECTIVE: GENERAL: Alert, no distress, unable to chew food due to absence of teeth. LUNGS: Clear. CARDIAC: Regular. ABDOMEN: Soft. EXTREMITIES: No edema. LABORATORY DATA: Sodium 154, potassium 4.3, bicarb 17, chloride 122, BUN 85, creatinine 3.1. Albumin 3. TSH is 0.115. IMPRESSION: 1. Dehydration. 2. Hypernatremia. 3. Hypovolemia. 4. Acute on chronic renal failure. 5. Insulin-requiring diabetes mellitus. 6. Sepsis due to urinary tract infection. 7. Hypovolemic shock, recovering. 8. Metabolic and toxic encephalopathy. 9. Multiple electrolyte abnormalities in the setting of metabolic acidosis. PLAN: 1. Continue volume support. 2. p.r.n. only for blood pressure spike. 3. Avoid pressors. 4. DVT and stress ulcer prophylaxis. 5. Await final results of urine culture and adjust antimicrobials accordingly. Kevin Zapata M.D. DR: LO JOB#: [id number] CC:
--- NOTE | 2020-01-09 03:04 | NUR ---
NURSE NOTES: Observed pt asleep in bed. No signs/symptoms of acute distress noted at this time. Will continue plan of care.
[2020-01-09 04:00] VITALS: BP 127/76
[2020-01-09] MEDS: NovoLOG Insulin Flexpen SUBQ SCH ×4 (06:30→21:00)
--- NOTE | 2020-01-09 07:32 | NUR ---
HAND-OFF: Report given to RAJIV Alvarez. Plan of care endorsed.
--- NOTE | 2020-01-09 07:40 | NUR ---
NURSE NOTES: Received report from RAJIV Morrison. Patient in bed resting, no active s/s cardiac, respiratory distress noticed at this time. Patient AOx1 , SR with HR 71, on room air. IV on right hand 22G, asymptomatic, patent, intact, IV fluid running as prescribed rate. Bed in lowest position, side rails upx2, call light within reach, bed alarm on. Will continue to monitor.
[2020-01-09 08:00] VITALS: BP 136/69
[2020-01-09 08:22] LABS: ANION GAP 13 mmol/L (5-15); BLOOD UREA NITROGEN 51 mg/dL (7-18); CARBON DIOXIDE 19 MMOL/L (21-32); CHLORIDE 119 MMOL/L (98-107); CREATININE 1.7 MG/DL (0.55-1.30); POTASSIUM 3.5 MMOL/L (3.5-5.1); SODIUM 151 MMOL/L (136-145)
[2020-01-09] MEDS: Heparin 5000 units/ml inj SUBQ SCH ×2 (09:50→22:13)
--- NOTE | 2020-01-09 10:54 | Surgery Progress Note ---
Surgery Progress Note Subjective Additional Comments no acute events comfortable labs reviewed Objective Last 24 Hour Vital Signs Date Time Temp Pulse Resp B/P (MAP) Pulse Ox O2 Delivery O2 Flow Rate FiO2 01/09/20 09:00 Room Air 01/09/20 08:00 98 Room Air 21 01/09/20 08:00 85 18 98 Room Air 21 01/09/20 08:00 98.7 86 20 136/69 (91) 98 01/09/20 08:00 67 01/09/20 04:00 66 01/09/20 04:00 97.5 71 20 127/76 (93) 97 01/09/20 00:00 69 01/09/20 00:00 97.3 69 19 115/67 (83) 97 01/08/20 21:00 Room Air 01/08/20 20:00 97.5 75 18 133/75 (94) 98 01/08/20 20:00 75 01/08/20 19:02 97 Room Air 21 01/08/20 16:00 72 01/08/20 16:00 98.0 75 18 132/71 (91) 99 01/08/20 12:00 97.0 79 20 131/73 (92) 95 01/08/20 12:00 76 I&O Intake and Output 01/08/20 01/09/20 19:00 07:00 Intake Total 140 ml Output Total 900 ml Balance -760 ml Intake Oral 140 ml Output Urine Total 900 ml Dressing: dry Wound: clean Cardiovascular: RSR Respiratory: clear, decreased breath sounds Abdomen: soft, present bowel sounds Extremities: no cyanosis Laboratory Tests Test 01/09/20 05:43 Sodium Level 151 MMOL/L (136-145) H Potassium Level 3.5 MMOL/L (3.5-5.1) Chloride Level 119 MMOL/L (98-107) H Carbon Dioxide Level 19 MMOL/L (21-32) L Anion Gap 13 mmol/L (5-15) Blood Urea Nitrogen 51 mg/dL (7-18) H Creatinine 1.7 MG/DL (0.55-1.30) H Estimat Glomerular Filtration Rate 28.4 mL/min (>60) Glucose Level 106 MG/DL (74-106) Uric Acid 2.3 MG/DL (2.6-7.2) L Calcium Level 8.0 MG/DL (8.5-10.1) L Plan Problems: (1) Deep tissue injury Assessment & Plan: 89-year-old female multiple medical comorbidities presented with leukocytosis, abnormal labs, dehydration, UTI, identified to have sacral DTI. At the top examination completed and patient evaluated. Multiple areas of possible decline identified. No acute surgical intervention indicated or recommended Appropriate wound care instructions were given Apply skin protectant and OPTi foam dressing to sacral area and bilateral heels. Change q. 3 days. Turn every 2 hours Offload pressure Heel protectors and elevate heels with pillow Nutritional optimization Given patient's age, nutritional status, overall condition she is at high risk for further development of worsening decubitus. Will need to keep close monitoring to ensure above care plan Thank you for let me participate in patient's care will follow with recommendations (2) Severe protein-calorie malnutrition (3) Leukocytosis Assessment & Plan: Patient presented with leukocytosis abnormal labs dehydration and UTI. Patient identified to have decubitus ulcer with deep tissue injury concerning for possible infectious process. No acute infection seen from DTI and leukocytosis likely from UTI. wbc improved Antibiotics as per primary. Ibrahima Connors Jan 09, 2020 10:54
--- NOTE | 2020-01-09 11:58 | General Progress Note ---
Assessment/Plan Problem List: (1) Dehydration ICD Codes: E86.0 - Dehydration SNOMED: 90200200 (2) Hypernatremia ICD Codes: E87.0 - Hyperosmolality and hypernatremia SNOMED: 264715557 (3) Hyperkalemia ICD Codes: E87.5 - Hyperkalemia SNOMED: 92802733, 4381506 (4) UTI (urinary tract infection) ICD Codes: N39.0 - Urinary tract infection, site not specified SNOMED: 79535697 (5) PAUL (acute kidney injury) ICD Codes: N17.9 - Acute kidney failure, unspecified SNOMED: 74796039, 3085674 (6) Severe protein-calorie malnutrition ICD Codes: E43 - Unspecified severe protein-calorie malnutrition SNOMED: 606582343, 740314352, 302915124 (7) Toxic metabolic encephalopathy ICD Codes: G92 - Toxic encephalopathy SNOMED: 937832381 Assessment/Plan: cont hydration antibiotics trend lab--improving Subjective ROS Limited/Unobtainable: Yes Allergies: Coded Allergies: No Known Allergies (Unverified , 11/03/19) Objective Last 24 Hour Vital Signs Date Time Temp Pulse Resp B/P (MAP) Pulse Ox O2 Delivery O2 Flow Rate FiO2 01/09/20 09:00 Room Air 01/09/20 08:00 98 Room Air 21 01/09/20 08:00 85 18 98 Room Air 21 01/09/20 08:00 98.7 86 20 136/69 (91) 98 01/09/20 08:00 67 01/09/20 04:00 66 01/09/20 04:00 97.5 71 20 127/76 (93) 97 01/09/20 00:00 69 01/09/20 00:00 97.3 69 19 115/67 (83) 97 01/08/20 21:00 Room Air 01/08/20 20:00 97.5 75 18 133/75 (94) 98 01/08/20 20:00 75 01/08/20 19:02 97 Room Air 21 01/08/20 16:00 72 01/08/20 16:00 98.0 75 18 132/71 (91) 99 01/08/20 12:00 97.0 79 20 131/73 (92) 95 01/08/20 12:00 76 Intake and Output 01/08/20 01/09/20 19:00 07:00 Intake Total 140 ml Output Total 900 ml Balance -760 ml Intake Oral 140 ml Output Urine Total 900 ml Laboratory Tests 01/09/20 05:43: Sodium Level 151H, Potassium Level 3.5, Chloride Level 119H, Carbon Dioxide Level 19L, Anion Gap 13, Blood Urea Nitrogen 51H, Creatinine 1.7H, Estimat Glomerular Filtration Rate 28.4, Glucose Level 106, Uric Acid 2.3L, Calcium Level 8.0L Height (Feet): 5 Height (Inches): 0.00 Weight (Pounds): 106 General Appearance: no apparent distress, thin EENT: normal ENT inspection Neck: normal alignment Cardiovascular: normal rate Respiratory/Chest: lungs clear Abdomen: non tender Edema: no edema noted Arm (L), no edema noted Arm (R), no edema noted Leg (L), no edema noted Leg (R), no edema noted Pedal (L), no edema noted Pedal (R), no edema noted 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
[2020-01-09 12:00] VITALS: BP 141/74
[2020-01-09] MEDS: Zosyn 3.375gm in NS 110ml IVPB SCH (13:15)
[2020-01-09 16:00] VITALS: BP 124/71
--- NOTE | 2020-01-09 16:51 | General Progress Note ---
Assessment/Plan Problem List: (1) Hyperkalemia ICD Codes: E87.5 - Hyperkalemia SNOMED: 45528452, 8523103 (2) Hypernatremia ICD Codes: E87.0 - Hyperosmolality and hypernatremia SNOMED: 543649519 (3) Sepsis ICD Codes: A41.9 - Sepsis, unspecified organism SNOMED: 44508426 (4) UTI (urinary tract infection) ICD Codes: N39.0 - Urinary tract infection, site not specified SNOMED: 70645461 (5) Toxic metabolic encephalopathy ICD Codes: G92 - Toxic encephalopathy SNOMED: 390996811 (6) Severe protein-calorie malnutrition ICD Codes: E43 - Unspecified severe protein-calorie malnutrition SNOMED: 494480160, 979058940, 657735771 Status: stable Assessment/Plan: o2 resp rx iv abx swallow eval ivf dvt/stress ulcer prophylaxis Subjective ROS Limited/Unobtainable: No Constitutional: Reports: malaise, weakness HEENT: Reports: no symptoms Cardiovascular: Reports: no symptoms Respiratory: Reports: cough, shortness of breath Gastrointestinal/Abdominal: Reports: no symptoms Genitourinary: Reports: no symptoms Neurologic/Psychiatric: Reports: pre-existing deficit Endocrine: Reports: no symptoms Hematologic/Lymphatic: Reports: anemia Allergies: Coded Allergies: No Known Allergies (Unverified , 11/03/19) All Systems: reviewed and negative except above Subjective resting. no complaints. no fevers. on iv abx. no overnight events per night nurse Objective Last 24 Hour Vital Signs Date Time Temp Pulse Resp B/P (MAP) Pulse Ox O2 Delivery O2 Flow Rate FiO2 01/09/20 16:00 98.1 78 18 124/71 (88) 98 01/09/20 12:00 75 01/09/20 12:00 97.0 77 20 141/74 (96) 96 01/09/20 09:00 Room Air 01/09/20 08:00 98 Room Air 21 01/09/20 08:00 85 18 98 Room Air 21 01/09/20 08:00 98.7 86 20 136/69 (91) 98 01/09/20 08:00 67 01/09/20 04:00 66 01/09/20 04:00 97.5 71 20 127/76 (93) 97 01/09/20 00:00 69 01/09/20 00:00 97.3 69 19 115/67 (83) 97 01/08/20 21:00 Room Air 01/08/20 20:00 97.5 75 18 133/75 (94) 98 01/08/20 20:00 75 01/08/20 19:02 97 Room Air 21 Intake and Output 01/08/20 01/09/20 19:00 07:00 Intake Total 140 ml Output Total 900 ml Balance -760 ml Intake Oral 140 ml Output Urine Total 900 ml Laboratory Tests 01/09/20 05:43: Sodium Level 151H, Potassium Level 3.5, Chloride Level 119H, Carbon Dioxide Level 19L, Anion Gap 13, Blood Urea Nitrogen 51H, Creatinine 1.7H, Estimat Glomerular Filtration Rate 28.4, Glucose Level 106, Uric Acid 2.3L, Calcium Level 8.0L Height (Feet): 5 Height (Inches): 0.00 Weight (Pounds): 106 General Appearance: WD/WN Neck: supple Cardiovascular: regular rhythm Respiratory/Chest: chest wall non-tender, lungs clear, normal breath sounds Abdomen: normal bowel sounds, non tender, soft, no organomegaly Edema: no edema noted Arm (L), no edema noted Arm (R), no edema noted Leg (L), no edema noted Leg (R), no edema noted Pedal (L), no edema noted Pedal (R), no edema noted Generalized Neurologic: manager center II-XII grossly normal, alert Maximino Harmon MD Jan 09, 2020 16:51
--- NOTE | 2020-01-09 19:16 | NUR ---
HAND-OFF: Report given to RAJIV Morrison.
--- NOTE | 2020-01-09 19:53 | NUR ---
NURSE NOTES: Pt has a med-surg order per Dr. Zapata; awaiting for bed assignment.
--- NOTE | 2020-01-09 19:53 | NUR ---
NURSE NOTES: Received pt and report from RAJIV Alvarez. Pt is A/Ox1-2. Observed pt resting in bed with both eyes closed; arousable to voice. site monitor is in placed; pt is NSR. IV site intact, asymptomatic, and patent; running 1/2 NS @75cc/hr. Bed is in the lowest position and locked. Call light and bedside table is within reach. No signs/symptoms of acute distress noted at this time. Will continue plan of care.
[2020-01-09 20:00] VITALS: BP 126/60
[2020-01-10] VITALS: BP 123/62
[2020-01-10] MEDS: Zosyn 3.375gm in NS 110ml IVPB SCH (01:11)
--- NOTE | 2020-01-10 03:04 | NUR ---
NURSE NOTES: Observed pt resting in bed with both eyes closed. No signs/symptoms of acute distress noted at this time. Will continue plan of care.
[2020-01-10 04:00] VITALS: BP 135/74
--- NOTE | 2020-01-10 06:00 | NUR ---
NURSE NOTES: Received Report from RN Tamiko, pt transferred from second floor , a/ox2, breaths even regular unlabored at RA. Denies any pain. Pt has RT forearm 22g with i.v fluids running. . Pt a sacral DTi and bilateral heal dressing clean intact Will continue to monitor
--- NOTE | 2020-01-10 06:00 | NUR ---
TRANSFER TO FLOOR: Patient transferred to 320-2, per Dr. Zapata. Pt transferred to 320-2 without any incident. Report given to RAJIV Steve. Belongings and medications given to RAJIV Steve. Pt is in stable condition. Plan of care endorsed. Orders transferred.
[2020-01-10] MEDS: NovoLOG Insulin Flexpen SUBQ SCH ×5 (06:21→20:51)
[2020-01-10] MEDS ORDERED: Albuterol/Ipratropium 3ml neb HHN PRN (07:00)
--- NOTE | 2020-01-10 07:47 | NUR ---
HAND-OFF: Report given to Jesika Montoya
--- NOTE | 2020-01-10 07:50 | NUR ---
NURSE NOTES: received report from RAJIV Steve. patient in bed. alert. disoriented. confused. no respiratory distress noted. no c/o pain at this time. IV on RFA22g running 1/2 NS@75/hr. bed in the lowest position and locked. call light within reach. will continue to provided plan of care.
[2020-01-10 07:56] LABS: ANION GAP 15 mmol/L (5-15); BLOOD UREA NITROGEN 34 mg/dL (7-18); CALCIUM 8.5 MG/DL (8.5-10.1); CARBON DIOXIDE 19 MMOL/L (21-32); CHLORIDE 114 MMOL/L (98-107); CREATININE 1.4 MG/DL (0.55-1.30); POTASSIUM 3.4 MMOL/L (3.5-5.1); SODIUM 148 MMOL/L (136-145)
[2020-01-10 08:00] VITALS: BP 132/76
--- NOTE | 2020-01-10 10:14 | Infectious Diseases Prog Note ---
"Assessment/Plan Assessment/Plan antibiotics : zosyn A 1. klebsiella | e.coli UTI 2. leucocytosis resolved 3. diabetes mellitus 4. hypertension 5. dementia 6. hypernatremia improving P 1. d/c zosyn 2. start and continue ceftriaxone 3 more days 3. will follow up cultures Subjective ROS Limited/Unobtainable: Yes Allergies: Coded Allergies: No Known Allergies (Unverified , 11/03/19) Objective Vital Signs Last 24 Hour Vital Signs Date Time Temp Pulse Resp B/P (MAP) Pulse Ox O2 Delivery O2 Flow Rate FiO2 01/10/20 08:00 97.6 78 18 132/76 (94) 99 01/10/20 04:00 97.0 74 19 135/74 (94) 97 01/10/20 00:00 97.8 74 18 123/62 (82) 98 01/09/20 21:00 Room Air 01/09/20 20:15 97 Room Air 21 01/09/20 20:15 78 18 97 Room Air 21 01/09/20 20:00 97.9 78 19 126/60 (82) 99 01/09/20 16:00 79 01/09/20 16:00 98.1 78 18 124/71 (88) 98 01/09/20 12:00 75 01/09/20 12:00 97.0 77 20 141/74 (96) 96 Height (Feet): 5 Height (Inches): 0.00 Weight (Pounds): 106 Respiratory/Chest: lungs clear Cardiovascular: normal rate, regular rhythm, no gallop/murmur Abdomen: soft, non tender Extremities: no edema Microbiology Date/Time Source Procedure Growth Status 01/07/20 10:50 Urine,Clean Catch Urine Culture - Final NO GROWTH AFTER 48 HOURS Complete Laboratory Tests Test 01/10/20 06:40 Sodium Level 148 MMOL/L (136-145) H Potassium Level 3.4 MMOL/L (3.5-5.1) L Chloride Level 114 MMOL/L (98-107) H Carbon Dioxide Level 19 MMOL/L (21-32) L Anion Gap 15 mmol/L (5-15) Blood Urea Nitrogen 34 mg/dL (7-18) H Creatinine 1.4 MG/DL (0.55-1.30) H Estimat Glomerular Filtration Rate 35.5 mL/min (>60) Glucose Level 121 MG/DL (74-106) H Calcium Level 8.5 MG/DL (8.5-10.1) Current Medications Medications (Trade) Dose Ordered Sig/Luz Maria Route PRN Reason Start Time Stop Time Status Last Admin Dose Admin Albuterol/ Ipratropium (Albuterol/ Ipratropium) 3 ml Q4H PRN HHN Shortness of Breath 01/10/20 07:00 01/13/20 06:59 Dextrose (Dextrose 50%) 25 ml Q30M PRN IV Hypoglycemia 01/10/20 06:45 02/06/20 03:44 Dextrose (Dextrose 50%) 50 ml Q30M PRN IV Hypoglycemia 01/10/20 06:45 02/06/20 03:44 Heparin Sodium (Porcine) (Heparin 5000 units/ml) 5,000 units EVERY 12 HOURS SUBQ 01/10/20 09:00 02/06/20 20:59 Insulin Aspart (NovoLOG) BEFORE MEALS AND HS SUBQ 01/10/20 06:30 02/06/20 06:29 Pantoprazole (Protonix) 40 mg DAILY ORAL 01/10/20 09:00 02/08/20 08:59 Piperacillin Sod/ Tazobactam Sod 3.375 gm/Sodium Chloride 110 ml @ 27.5 mls/hr Q12H IVPB 01/10/20 13:00 01/16/20 12:59 Sodium Chloride 1,000 ml @ 75 mls/hr [id number] IV 01/10/20 06:30 02/08/20 12:59 01/10/20 07:03 Johnathan Caldwell MD Jan 10, 2020 10:14"
[2020-01-10] MEDS: Heparin 5000 units/ml inj SUBQ SCH ×2 (10:16→20:44)
--- NOTE | 2020-01-10 11:30 | NUR ---
NURSE NOTES: patient pulled out IV. alert. disoriented. confused. explained risks and benefits. patient refused to get new IV at this time. she said maybe later afternoon. patient also refused insulin. BS168. asymptomatic. patient refused lunch at this time. will offer later again.
[2020-01-10 12:00] VITALS: BP 152/78
[2020-01-10] MEDS ORDERED: Piperacillin/Tazobactam 3.375 GM in NS 110 ML IVPB SCH (13:00)
--- NOTE | 2020-01-10 13:52 | NUR ---
RD ASSESSMENT & RECOMMENDATIONS SEE CARE ACTIVITY FOR COMPLETE ASSESSMENT DAILY ESTIMATED NEEDS: Needs based on Wound, wasting, DM 48kg 30-35 kcals/kg 7440-0571 total kcals 1.25-1.5 g protein/kg 60-72 g total protein 25-30 mL/kg 0242-9064 total fluid mLs NUTRITION DIAGNOSIS: * Increased kcal/prot intake needs R/T wound healing and wasting as evidenced by pt admitted w/ DTPI @ sacrum and non-blanching erythema @ BL heels, noted w/ mild-moderate generalized wasting. * Swallowing difficulty R/T dysphagia as evidenced by pt on pureed moist texture diet. CURRENT DIET: CCHO MED puree + Glucerna QD PO DIET RECOMMENDATIONS: Maintain CCHO MED/ texture per PAPER FEEDER + Glucerna TID w/ meals ADDITIONAL RECOMMENDATIONS: 1) Wound care: add MVI x 1, Vit C 500mg QD, Mane 1pkt BID as tolerated 2) Calibrated bed scale weight -> suspected wt loss, wasting -> bedscale on 01/10 not functioning 3) Increase Glucerna to TID w/ meals 4) Record % intake of meals in EMR, monitor PO intake closely (intake of meals not available at this time) 5) Monitor renal fxn and lytes -> renal fxn improving w/ IVF
--- NOTE | 2020-01-10 14:20 | General Progress Note ---
Assessment/Plan Problem List: (1) Hyperkalemia ICD Codes: E87.5 - Hyperkalemia SNOMED: 12159044, 5700212 (2) Hypernatremia ICD Codes: E87.0 - Hyperosmolality and hypernatremia SNOMED: 869528630 (3) Sepsis ICD Codes: A41.9 - Sepsis, unspecified organism SNOMED: 45694367 (4) UTI (urinary tract infection) ICD Codes: N39.0 - Urinary tract infection, site not specified SNOMED: 17362711 (5) Toxic metabolic encephalopathy ICD Codes: G92 - Toxic encephalopathy SNOMED: 981611503 (6) Severe protein-calorie malnutrition ICD Codes: E43 - Unspecified severe protein-calorie malnutrition SNOMED: 930333756, 712850987, 506279427 Status: stable Assessment/Plan: o2 resp rx iv abx swallow eval ivf dvt/stress ulcer prophylaxis Subjective ROS Limited/Unobtainable: No Constitutional: Reports: malaise, weakness HEENT: Reports: no symptoms Cardiovascular: Reports: no symptoms Respiratory: Reports: cough Gastrointestinal/Abdominal: Reports: no symptoms Genitourinary: Reports: no symptoms Neurologic/Psychiatric: Reports: pre-existing deficit Endocrine: Reports: no symptoms Hematologic/Lymphatic: Reports: no symptoms Allergies: Coded Allergies: No Known Allergies (Unverified , 11/03/19) All Systems: reviewed and negative except above Subjective resting. no complaints. no fevers. on iv abx. no overnight events per night nurse ID noted. Objective Last 24 Hour Vital Signs Date Time Temp Pulse Resp B/P (MAP) Pulse Ox O2 Delivery O2 Flow Rate FiO2 01/10/20 12:00 97.0 89 20 152/78 (102) 97 01/10/20 09:40 75 16 96 Room Air 21 01/10/20 09:40 96 Room Air 21 01/10/20 09:00 Room Air 01/10/20 08:00 97.6 78 18 132/76 (94) 99 01/10/20 04:00 97.0 74 19 135/74 (94) 97 01/10/20 00:00 97.8 74 18 123/62 (82) 98 01/09/20 21:00 Room Air 01/09/20 20:15 97 Room Air 21 01/09/20 20:15 78 18 97 Room Air 21 01/09/20 20:00 97.9 78 19 126/60 (82) 99 01/09/20 16:00 79 01/09/20 16:00 98.1 78 18 124/71 (88) 98 Laboratory Tests 01/10/20 06:40: Sodium Level 148H, Potassium Level 3.4L, Chloride Level 114H, Carbon Dioxide Level 19L, Anion Gap 15, Blood Urea Nitrogen 34H, Creatinine 1.4H, Estimat Glomerular Filtration Rate 35.5, Glucose Level 121H, Calcium Level 8.5 Height (Feet): 5 Height (Inches): 0.00 Weight (Pounds): 106 General Appearance: WD/WN, alert Neck: supple Cardiovascular: normal rate Respiratory/Chest: lungs clear, normal breath sounds Abdomen: normal bowel sounds, non tender, soft, no organomegaly Pelvis: normal external exam, normal rectal exam, speculum exam normal Edema: no edema noted Arm (L), no edema noted Arm (R), no edema noted Leg (L), no edema noted Leg (R), no edema noted Pedal (L), no edema noted Pedal (R), no edema noted Generalized Neurologic: alert, disoriented Maximino Harmon MD Jan 10, 2020 14:20
--- NOTE | 2020-01-10 14:22 | Nephrology Progress Note ---
Assessment/Plan Problem List: (1) Dehydration (2) Hypernatremia (3) Hyperkalemia (4) UTI (urinary tract infection) (5) PAUL (acute kidney injury) (6) Severe protein-calorie malnutrition (7) Toxic metabolic encephalopathy Plan lab better, replace K Subjective ROS Limited/Unobtainable: Yes Objective Objective Last 24 Hour Vital Signs Date Time Temp Pulse Resp B/P (MAP) Pulse Ox O2 Delivery O2 Flow Rate FiO2 01/10/20 12:00 97.0 89 20 152/78 (102) 97 01/10/20 09:40 75 16 96 Room Air 21 01/10/20 09:40 96 Room Air 21 01/10/20 09:00 Room Air 01/10/20 08:00 97.6 78 18 132/76 (94) 99 01/10/20 04:00 97.0 74 19 135/74 (94) 97 01/10/20 00:00 97.8 74 18 123/62 (82) 98 01/09/20 21:00 Room Air 01/09/20 20:15 97 Room Air 21 01/09/20 20:15 78 18 97 Room Air 21 01/09/20 20:00 97.9 78 19 126/60 (82) 99 01/09/20 16:00 79 01/09/20 16:00 98.1 78 18 124/71 (88) 98 Laboratory Tests 01/10/20 06:40: Sodium Level 148H, Potassium Level 3.4L, Chloride Level 114H, Carbon Dioxide Level 19L, Anion Gap 15, Blood Urea Nitrogen 34H, Creatinine 1.4H, Estimat Glomerular Filtration Rate 35.5, Glucose Level 121H, Calcium Level 8.5 Height (Feet): 5 Height (Inches): 0.00 Weight (Pounds): 106 General Appearance: no apparent distress, alert EENT: normal ENT inspection Neck: normal alignment Cardiovascular: regular rhythm Respiratory/Chest: lungs clear Extremities: non-tender Neurologic: kiln labourer II-XII grossly normal, disoriented Randolph Gonzalez MD Jan 10, 2020 14:22
--- NOTE | 2020-01-10 15:06 | Surgery Progress Note ---
Surgery Progress Note Subjective Symptoms: improved Objective Last 24 Hour Vital Signs Date Time Temp Pulse Resp B/P (MAP) Pulse Ox O2 Delivery O2 Flow Rate FiO2 01/10/20 12:00 97.0 89 20 152/78 (102) 97 01/10/20 09:40 75 16 96 Room Air 21 01/10/20 09:40 96 Room Air 21 01/10/20 09:00 Room Air 01/10/20 08:00 97.6 78 18 132/76 (94) 99 01/10/20 04:00 97.0 74 19 135/74 (94) 97 01/10/20 00:00 97.8 74 18 123/62 (82) 98 01/09/20 21:00 Room Air 01/09/20 20:15 97 Room Air 21 01/09/20 20:15 78 18 97 Room Air 21 01/09/20 20:00 97.9 78 19 126/60 (82) 99 01/09/20 16:00 79 01/09/20 16:00 98.1 78 18 124/71 (88) 98 Dressing: dry Wound: clean Cardiovascular: RSR Respiratory: clear Abdomen: soft, non-tender, present bowel sounds Extremities: no cyanosis Laboratory Tests Test 01/10/20 06:40 Sodium Level 148 MMOL/L (136-145) H Potassium Level 3.4 MMOL/L (3.5-5.1) L Chloride Level 114 MMOL/L (98-107) H Carbon Dioxide Level 19 MMOL/L (21-32) L Anion Gap 15 mmol/L (5-15) Blood Urea Nitrogen 34 mg/dL (7-18) H Creatinine 1.4 MG/DL (0.55-1.30) H Estimat Glomerular Filtration Rate 35.5 mL/min (>60) Glucose Level 121 MG/DL (74-106) H Calcium Level 8.5 MG/DL (8.5-10.1) Plan Problems: (1) Deep tissue injury Assessment & Plan: 89-year-old female multiple medical comorbidities presented with leukocytosis, abnormal labs, dehydration, UTI, identified to have sacral DTI. At the top examination completed and patient evaluated. Multiple areas of possible decline identified. No acute surgical intervention indicated or recommended Appropriate wound care instructions were given Apply skin protectant and OPTi foam dressing to sacral area and bilateral heels. Change q. 3 days. Turn every 2 hours Offload pressure Heel protectors and elevate heels with pillow Nutritional optimization Given patient's age, nutritional status, overall condition she is at high risk for further development of worsening decubitus. Will need to keep close monitoring to ensure above care plan Thank you for let me participate in patient's care will follow with recommendations (2) Severe protein-calorie malnutrition (3) Leukocytosis Assessment & Plan: Patient presented with leukocytosis abnormal labs dehydration and UTI. Patient identified to have decubitus ulcer with deep tissue injury concerning for possible infectious process. No acute infection seen from DTI and leukocytosis likely from UTI. wbc improved Antibiotics as per primary. (4) Sepsis Assessment & Plan: improving overall cont current care Ibrahima Connors Jan 10, 2020 15:05
[2020-01-10] MEDS: 1/2NS w/KCl 20mEq 1000ml 1,000 ML IV SCH (15:19)
[2020-01-10] MEDS: cefTRIAXone 1 GM in D5W 55 ML IVPB SCH (15:21)
[2020-01-10 16:00] VITALS: BP 151/77
--- NOTE | 2020-01-10 17:00 | NUR ---
NURSE NOTES: patient refuse to change dressing on sacral area, refused to take wound pictures. turned and reposition q2hrs. f/c in place. no BM today. dressing intact and dry.
--- NOTE | 2020-01-10 19:35 | NUR ---
HAND-OFF: Report given to RAJIV Steve.
[2020-01-10 20:00] VITALS: BP 149/87
--- NOTE | 2020-01-10 20:15 | NUR ---
NURSE NOTES: Received Report from RAJIV sorto.S , Pt is a/ox2, breaths even regular unlabored at RA. Denies any pain. Pt has Lt forearm 22g with i.v fluids running. . Pt a sacral DTi and bilateral heal dressing clean intact, Will continue to monitor
--- NOTE | 2020-01-10 22:45 | Progress Note ---
DATE: 01/09/2020 CARDIOLOGY PROGRESS NOTE SUBJECTIVE: The patient is resting comfortably. No shortness of breath. No chest pain. No nausea or vomiting. On IV fluids. She has difficulty with the diet because of her dentures that are downgraded to a puree. OBJECTIVE: VITAL SIGNS: Blood pressure 124/71, pulse 78, respirations 18, and afebrile. CARDIAC: Monitoring reviewed by me reveals sinus rhythm with no significant ectopy. LUNGS: Bilateral breath sounds. No rales. HEART: Regular rhythm and rate. Normal S1, S2. A 1/6 systolic murmur at apex. ABDOMEN: Soft. EXTREMITIES: No edema. LABORATORY DATA: Sodium 151, potassium 3.5, bicarb 19, chloride 119, BUN 51, and creatinine 1.7. Uric acid is 2.3. IMPRESSION: 1. Dehydration. 2. Hypernatremia. 3. Hypovolemia. 4. Metabolic acidosis. 5. Acute on chronic renal failure. 6. Mild protein-calorie malnutrition. 7. Urinary tract infection with sepsis. 8. Toxic and metabolic encephalopathies. PLAN: 1. Adjust intravenous fluids. 2. Continue antimicrobials. 3. Stress ulcer and DVT prophylaxis. 4. Discontinue cardiac exercise specialist. Kevin Zapata M.D. DR: FRANKY JOB#: [id number] CC:
[2020-01-11] VITALS: BP 148/87
--- NOTE | 2020-01-11 | Progress Note ---
DATE: 01/10/2020 CARDIOLOGY PROGRESS NOTE SUBJECTIVE: The patient is more alert. No distress. Interactive. Intake is better with pureed diet. OBJECTIVE: VITAL SIGNS: Blood pressure 132/76 to 152/78, heart rate 74 to 89, respiratory rate 16 to 20, and the patient is afebrile. HEENT: Oropharynx is clear. Mucous membranes are moist. NECK: Supple. LUNGS: Clear. CARDIAC: Regular. Normal S1 and S2 with a fourth heart sound. ABDOMEN: Soft and nontender. EXTREMITIES: No edema. LABORATORY DATA: Sodium 148, potassium 3.4, chloride 114, bicarbonate 19, BUN 34, creatinine 1.4, and glucose 121. IMPRESSION: 1. Dehydration. 2. Hypernatremia. 3. Urinary tract infection with E. coli. 4. Sepsis. 5. Metabolic and toxic encephalopathies. 6. Skin wound. 7. Moderate to severe protein-calorie malnutrition. 8. Hypokalemia. 9. Metabolic acidosis. 10. Hyperchloremia. PLAN: 1. Continuing hypotonic IV fluids. 2. DVT prophylaxis. 3. Skin care. 4. Protein supplement. 5. IV antimicrobials per infectious disease quantitative consultant. 6. Cardiac monitoring discontinued. Kevin Zapata M.D. DR: CORNELIUS JOB#: [id number] CC:
[2020-01-11 04:00] VITALS: BP 150/88
[2020-01-11] MEDS: 1/2NS w/KCl 20mEq 1000ml 1,000 ML IV SCH ×2 (06:04→13:15)
[2020-01-11 06:14] LABS: ANION GAP 17 mmol/L (5-15); BLOOD UREA NITROGEN 21 mg/dL (7-18); CALCIUM 8.7 MG/DL (8.5-10.1); CARBON DIOXIDE 19 MMOL/L (21-32); CHLORIDE 110 MMOL/L (98-107); CREATININE 1.2 MG/DL (0.55-1.30); PHOSPHORUS 2.1 MG/DL (2.5-4.9); POTASSIUM 4.6 MMOL/L (3.5-5.1); SODIUM 146 MMOL/L (136-145)
[2020-01-11] MEDS: NovoLOG Insulin Flexpen SUBQ SCH ×4 (06:14→21:00)
--- NOTE | 2020-01-11 07:26 | NUR ---
HAND-OFF: Report given to RAJIV Suero.
[2020-01-11 08:00] VITALS: BP 147/80
--- NOTE | 2020-01-11 08:24 | NUR ---
NURSE NOTES: Patient awake, alert x1, confused; Azeri speaking; on room air, no sing of distress and shortness of breath; no sing of chest pain; IV Left For-Arm 22G 1/2NS [id number] 75cc running; side rails up x2, breaks engaged, bed at lowest position, bed alarm on; call light within reach; will keep monitoring.
[2020-01-11] MEDS: Heparin 5000 units/ml inj SUBQ SCH ×2 (08:59→20:35)
[2020-01-11 12:00] VITALS: BP 155/96
--- NOTE | 2020-01-11 13:10 | Nephrology Progress Note ---
Assessment/Plan Problem List: (1) Dehydration (2) Hypernatremia (3) Hyperkalemia (4) UTI (urinary tract infection) (5) PAUL (acute kidney injury) (6) Severe protein-calorie malnutrition (7) Toxic metabolic encephalopathy (8) Hypomagnesemia (9) Hypophosphatemia Plan lab better, replace K phos mg Subjective ROS Limited/Unobtainable: Yes Objective Objective Last 24 Hour Vital Signs Date Time Temp Pulse Resp B/P (MAP) Pulse Ox O2 Delivery O2 Flow Rate FiO2 01/11/20 12:00 98.1 94 20 155/96 (115) 96 01/11/20 09:00 Room Air 01/11/20 08:00 97.1 98 18 147/80 (102) 97 01/11/20 04:00 97.6 89 17 150/88 (108) 97 01/11/20 00:00 99.1 84 17 148/87 (107) 97 01/10/20 21:00 Room Air 01/10/20 20:00 97.9 95 18 149/87 (107) 98 01/10/20 16:00 97.2 81 18 151/77 (101) 99 Intake and Output 01/10/20 01/11/20 19:00 07:00 Intake Total 410 ml 810 ml Output Total 1500 ml Balance 410 ml -690 ml Intake Oral 60 ml IV Total 410 ml 750 ml Output Urine Total 1500 ml Laboratory Tests 01/11/20 05:15: Sodium Level 146H, Potassium Level 4.6, Chloride Level 110H, Carbon Dioxide Level 19L, Anion Gap 17H, Blood Urea Nitrogen 21H, Creatinine 1.2, Estimat Glomerular Filtration Rate 42.5, Glucose Level 106, Calcium Level 8.7, Phosphorus Level 2.1L, Magnesium Level 1.3L Height (Feet): 5 Height (Inches): 0.00 Weight (Pounds): 106 General Appearance: thin EENT: normal ENT inspection Neck: normal alignment Cardiovascular: regular rhythm Respiratory/Chest: lungs clear Extremities: no edema Neurologic: hazmat technician II-XII grossly normal Randolph Gonzalez MD Jan 11, 2020 13:10
--- NOTE | 2020-01-11 13:23 | General Progress Note ---
Assessment/Plan Problem List: (1) Hyperkalemia ICD Codes: E87.5 - Hyperkalemia SNOMED: 31444445, 5062887 (2) Hypernatremia ICD Codes: E87.0 - Hyperosmolality and hypernatremia SNOMED: 579081318 (3) Sepsis ICD Codes: A41.9 - Sepsis, unspecified organism SNOMED: 94660941 (4) UTI (urinary tract infection) ICD Codes: N39.0 - Urinary tract infection, site not specified SNOMED: 99819884 (5) Toxic metabolic encephalopathy ICD Codes: G92 - Toxic encephalopathy SNOMED: 212687795 (6) Severe protein-calorie malnutrition ICD Codes: E43 - Unspecified severe protein-calorie malnutrition SNOMED: 043125428, 702491132, 437959098 Status: stable Assessment/Plan: o2 resp rx iv abx per id swallow eval replace lytes titrate bp meds dvt/stress ulcer prophylaxis Subjective ROS Limited/Unobtainable: No Constitutional: Reports: malaise, weakness HEENT: Reports: no symptoms Cardiovascular: Reports: no symptoms Respiratory: Reports: cough Gastrointestinal/Abdominal: Reports: no symptoms Genitourinary: Reports: no symptoms Neurologic/Psychiatric: Reports: depressed, emotional problems Endocrine: Reports: no symptoms Hematologic/Lymphatic: Reports: anemia Allergies: Coded Allergies: No Known Allergies (Unverified , 11/03/19) All Systems: reviewed and negative except above Subjective resting. no complaints. no fevers. on iv abx. no overnight events per night nurse ID noted. BP up. Objective Last 24 Hour Vital Signs Date Time Temp Pulse Resp B/P (MAP) Pulse Ox O2 Delivery O2 Flow Rate FiO2 01/11/20 12:00 98.1 94 20 155/96 (115) 96 01/11/20 09:00 Room Air 01/11/20 08:00 97.1 98 18 147/80 (102) 97 01/11/20 04:00 97.6 89 17 150/88 (108) 97 01/11/20 00:00 99.1 84 17 148/87 (107) 97 01/10/20 21:00 Room Air 01/10/20 20:00 97.9 95 18 149/87 (107) 98 01/10/20 16:00 97.2 81 18 151/77 (101) 99 Intake and Output 01/10/20 01/11/20 19:00 07:00 Intake Total 410 ml 810 ml Output Total 1500 ml Balance 410 ml -690 ml Intake Oral 60 ml IV Total 410 ml 750 ml Output Urine Total 1500 ml Laboratory Tests 01/11/20 05:15: Sodium Level 146H, Potassium Level 4.6, Chloride Level 110H, Carbon Dioxide Level 19L, Anion Gap 17H, Blood Urea Nitrogen 21H, Creatinine 1.2, Estimat Glomerular Filtration Rate 42.5, Glucose Level 106, Calcium Level 8.7, Phosphorus Level 2.1L, Magnesium Level 1.3L Height (Feet): 5 Height (Inches): 0.00 Weight (Pounds): 106 Objective General Appearance: WD/WN, alert Neck: supple Cardiovascular: normal rate Respiratory/Chest: lungs clear, normal breath sounds Abdomen: normal bowel sounds, non tender, soft, no organomegaly Pelvis: normal external exam, normal rectal exam, speculum exam normal Edema: no edema noted Arm (L), no edema noted Arm (R), no edema noted Leg (L), no edema noted Leg (R), no edema noted Pedal (L), no edema noted Pedal (R), no edema noted Generalized Neurologic: alert, disoriented Maximino Harmon MD Jan 11, 2020 13:23
[2020-01-11] MEDS: cefTRIAXone 1 GM in D5W 55 ML IVPB SCH (14:08)
--- NOTE | 2020-01-11 14:47 | Surgery Progress Note ---
Surgery Progress Note Subjective Additional Comments no acute events comfortable stable labs improving Objective Last 24 Hour Vital Signs Date Time Temp Pulse Resp B/P (MAP) Pulse Ox O2 Delivery O2 Flow Rate FiO2 01/11/20 14:08 94 155/96 01/11/20 12:00 98.1 94 20 155/96 (115) 96 01/11/20 09:00 Room Air 01/11/20 08:00 97.1 98 18 147/80 (102) 97 01/11/20 04:00 97.6 89 17 150/88 (108) 97 01/11/20 00:00 99.1 84 17 148/87 (107) 97 01/10/20 21:00 Room Air 01/10/20 20:00 97.9 95 18 149/87 (107) 98 01/10/20 16:00 97.2 81 18 151/77 (101) 99 I&O Intake and Output 01/10/20 01/11/20 19:00 07:00 Intake Total 410 ml 810 ml Output Total 1500 ml Balance 410 ml -690 ml Intake Oral 60 ml IV Total 410 ml 750 ml Output Urine Total 1500 ml Dressing: other Wound: other Drains: other Cardiovascular: RSR Respiratory: decreased breath sounds Abdomen: soft, present bowel sounds, non-distended Extremities: edema, tenderness, no cyanosis, other Laboratory Tests Test 01/11/20 05:15 Sodium Level 146 MMOL/L (136-145) H Potassium Level 4.6 MMOL/L (3.5-5.1) Chloride Level 110 MMOL/L (98-107) H Carbon Dioxide Level 19 MMOL/L (21-32) L Anion Gap 17 mmol/L (5-15) H Blood Urea Nitrogen 21 mg/dL (7-18) H Creatinine 1.2 MG/DL (0.55-1.30) Estimat Glomerular Filtration Rate 42.5 mL/min (>60) Glucose Level 106 MG/DL (74-106) Calcium Level 8.7 MG/DL (8.5-10.1) Phosphorus Level 2.1 MG/DL (2.5-4.9) L Magnesium Level 1.3 MG/DL (1.8-2.4) L Plan Problems: (1) Deep tissue injury Assessment & Plan: 89-year-old female multiple medical comorbidities presented with leukocytosis, abnormal labs, dehydration, UTI, identified to have sacral DTI. At the top examination completed and patient evaluated. Multiple areas of possible decline identified. No acute surgical intervention indicated or recommended Appropriate wound care instructions were given Apply skin protectant and OPTi foam dressing to sacral area and bilateral heels. Change q. 3 days. Turn every 2 hours Offload pressure Heel protectors and elevate heels with pillow Nutritional optimization Given patient's age, nutritional status, overall condition she is at high risk for further development of worsening decubitus. Will need to keep close monitoring to ensure above care plan Thank you for let me participate in patient's care will follow with recommendations (2) Severe protein-calorie malnutrition (3) Leukocytosis Assessment & Plan: Patient presented with leukocytosis abnormal labs dehydration and UTI. Patient identified to have decubitus ulcer with deep tissue injury concerning for possible infectious process. No acute infection seen from DTI and leukocytosis likely from UTI. wbc improved Antibiotics as per primary. (4) Sepsis Assessment & Plan: improving overall cont current care Ibrahima Connors Jan 11, 2020 14:47
[2020-01-11] MEDS ORDERED: Potassium Phosphate 20 MM in NS 275 ML IV ONE (15:00)
[2020-01-11 16:00] VITALS: BP 119/82
[2020-01-11] MEDS ORDERED: Magnesium Oxide 400mg tab ORAL SCH (18:00)
--- NOTE | 2020-01-11 19:21 | NUR ---
HAND-OFF: Report given to RAJIV Contreras.
--- NOTE | 2020-01-11 19:25 | NUR ---
NURSE NOTES: Received Report from RN Héctor, Pt is a/ox2, breaths even regular unlabored at RA no s/s of distress . Denies any pain. Pt has Lt forearm 22g with i.v fluids running. . Pt sacral DTi, dressing clean intact and bilateral heal dressing clean intact,bed in low locked position and call light with reach, Will continue to monitor
[2020-01-11 20:00] VITALS: BP 139/83
--- NOTE | 2020-01-11 23:15 | Progress Note ---
DATE: 01/11/2020 CARDIOLOGY PROGRESS NOTE SUBJECTIVE: No new complaints. Tolerating antimicrobials and IV fluids. Swelling of upper extremities noted. Blood pressure parameters are increasing. PHYSICAL EXAMINATION: VITAL SIGNS: Blood pressure 155/96, pulse 94, respirations 20, and afebrile. LUNGS: Clear. CARDIAC: Regular. Normal S1 and S2 with a fourth heart sound. ABDOMEN: Soft. EXTREMITIES: Edema of the upper extremities. LABORATORY AND DIAGNOSTIC DATA: Sodium 146, potassium 4.6, chloride 110, bicarb 19, BUN 21, creatinine 1.2, phosphorus 2.1, and magnesium 1.3. IMPRESSION: 1. Urinary tract infection. 2. Sepsis. 3. Hypertensive heart disease with rising blood pressure. 4. Upper extremity edema, rule out DVT. 5. Severe protein-calorie malnutrition. 6. Hypomagnesemia. 7. Hypophosphatemia. PLAN: 1. Antimicrobials. 2. Respiratory hygiene. 3. Antihypertensives. 4. Added IV magnesium. 5. Maintenance oral magnesium to follow. 6. Phosphorus supplement. 7. Skin care. 8. Venous duplex to evaluate for upper extremity thrombosis. Kevin Zapata M.D. DR: Garrett JOB#: [id number] CC:
[2020-01-12] VITALS: BP 131/84
[2020-01-12 04:00] VITALS: BP 127/75
[2020-01-12] MEDS: NovoLOG Insulin Flexpen SUBQ SCH ×4 (06:30→21:00)
[2020-01-12 06:49] LABS: ANION GAP 14 mmol/L (5-15); BLOOD UREA NITROGEN 14 mg/dL (7-18); CALCIUM 8.6 MG/DL (8.5-10.1); CARBON DIOXIDE 20 MMOL/L (21-32); CHLORIDE 109 MMOL/L (98-107); PHOSPHORUS 3.6 MG/DL (2.5-4.9); POTASSIUM 4.6 MMOL/L (3.5-5.1); SODIUM 143 MMOL/L (136-145)
--- NOTE | 2020-01-12 07:46 | NUR ---
HAND-OFF: Report copy given to Charge nurse.
[2020-01-12 08:00] VITALS: BP 117/82
[2020-01-12] MEDS: Magnesium Oxide 400mg tab ORAL SCH ×3 (09:40→17:57)
[2020-01-12] MEDS: Heparin 5000 units/ml inj SUBQ SCH ×2 (09:40→21:17)
--- NOTE | 2020-01-12 10:00 | NUR ---
NURSE NOTES: Patient is in bed asleep. Stable. No visible signs of distress noted. Patient is in bed in locked and lowest position with call light within reach. All safety measures provided. Will continue to monitor.
[2020-01-12 12:00] VITALS: BP 117/78
[2020-01-12] MEDS: cefTRIAXone 1 GM in D5W 55 ML IVPB SCH (12:03)
--- NOTE | 2020-01-12 12:36 | Surgery Progress Note ---
Surgery Progress Note Subjective Additional Comments no acute events Objective Last 24 Hour Vital Signs Date Time Temp Pulse Resp B/P (MAP) Pulse Ox O2 Delivery O2 Flow Rate FiO2 01/12/20 12:00 97.3 102 17 117/78 (91) 97 01/12/20 09:40 81 117/82 01/12/20 09:00 Room Air 01/12/20 08:00 98.2 81 18 117/82 (94) 95 01/12/20 04:00 97.6 85 16 127/75 (92) 98 01/12/20 00:00 98.7 95 16 131/84 (100) 98 01/11/20 21:00 Room Air 01/11/20 20:00 97.3 95 18 139/83 (101) 98 01/11/20 16:00 97.3 87 18 119/82 (94) 98 01/11/20 14:08 94 155/96 I&O Intake and Output 01/11/20 01/12/20 19:00 07:00 Intake Total 995 ml 640 ml Output Total 800 ml 680 ml Balance 195 ml -40 ml Intake Oral 360 ml 40 ml IV Total 635 ml 600 ml Output Urine Total 800 ml 680 ml Dressing: other Wound: other Drains: other Cardiovascular: RSR Respiratory: decreased breath sounds Abdomen: soft, present bowel sounds Extremities: no edema, no tenderness Laboratory Tests Test 01/12/20 05:25 Sodium Level 143 MMOL/L (136-145) Potassium Level 4.6 MMOL/L (3.5-5.1) Chloride Level 109 MMOL/L (98-107) H Carbon Dioxide Level 20 MMOL/L (21-32) L Anion Gap 14 mmol/L (5-15) Blood Urea Nitrogen 14 mg/dL (7-18) Creatinine 1.0 MG/DL (0.55-1.30) Estimat Glomerular Filtration Rate 52.5 mL/min (>60) Glucose Level 94 MG/DL (74-106) Calcium Level 8.6 MG/DL (8.5-10.1) Phosphorus Level 3.6 MG/DL (2.5-4.9) Magnesium Level 2.4 MG/DL (1.8-2.4) Plan Problems: (1) Deep tissue injury Assessment & Plan: 89-year-old female multiple medical comorbidities presented with leukocytosis, abnormal labs, dehydration, UTI, identified to have sacral DTI. At the top examination completed and patient evaluated. Multiple areas of possible decline identified. No acute surgical intervention indicated or recommended Appropriate wound care instructions were given Apply skin protectant and OPTi foam dressing to sacral area and bilateral heels. Change q. 3 days. Turn every 2 hours Offload pressure Heel protectors and elevate heels with pillow Nutritional optimization Given patient's age, nutritional status, overall condition she is at high risk for further development of worsening decubitus. Will need to keep close monitoring to ensure above care plan Thank you for let me participate in patient's care will follow with recommendations (2) Severe protein-calorie malnutrition (3) Leukocytosis Assessment & Plan: Patient presented with leukocytosis abnormal labs dehydration and UTI. Patient identified to have decubitus ulcer with deep tissue injury concerning for possible infectious process. No acute infection seen from DTI and leukocytosis likely from UTI. wbc improved Antibiotics as per primary. (4) Sepsis Assessment & Plan: improving overall cont current care Ibrahima Connors Jan 12, 2020 12:36
--- NOTE | 2020-01-12 13:17 | Infectious Diseases Prog Note ---
Assessment/Plan Assessment/Plan A 1. klebsiella & E.coli UTI 2. leucocytosis resolved 3. diabetes mellitus 4. hypertension 5. dementia 6. hypernatremia resolved P 1. continue ceftriaxone 1 more day 2. will follow up cultures Subjective ROS Limited/Unobtainable: Yes Constitutional: Denies: fever Allergies: Coded Allergies: No Known Allergies (Unverified , 11/03/19) Objective Vital Signs Last 24 Hour Vital Signs Date Time Temp Pulse Resp B/P (MAP) Pulse Ox O2 Delivery O2 Flow Rate FiO2 01/12/20 12:00 97.3 102 17 117/78 (91) 97 01/12/20 09:40 81 117/82 01/12/20 09:00 Room Air 01/12/20 08:00 98.2 81 18 117/82 (94) 95 01/12/20 04:00 97.6 85 16 127/75 (92) 98 01/12/20 00:00 98.7 95 16 131/84 (100) 98 01/11/20 21:00 Room Air 01/11/20 20:00 97.3 95 18 139/83 (101) 98 01/11/20 16:00 97.3 87 18 119/82 (94) 98 01/11/20 14:08 94 155/96 Height (Feet): 5 Height (Inches): 0.00 Weight (Pounds): 106 General Appearance: no acute distress HEENT: mucous membranes moist Respiratory/Chest: lungs clear Cardiovascular: normal rate Abdomen: soft, non tender Extremities: no edema Neurologic/Psychiatric: other - sleeping Laboratory Tests Test 01/12/20 05:25 Sodium Level 143 MMOL/L (136-145) Potassium Level 4.6 MMOL/L (3.5-5.1) Chloride Level 109 MMOL/L (98-107) H Carbon Dioxide Level 20 MMOL/L (21-32) L Anion Gap 14 mmol/L (5-15) Blood Urea Nitrogen 14 mg/dL (7-18) Creatinine 1.0 MG/DL (0.55-1.30) Estimat Glomerular Filtration Rate 52.5 mL/min (>60) Glucose Level 94 MG/DL (74-106) Calcium Level 8.6 MG/DL (8.5-10.1) Phosphorus Level 3.6 MG/DL (2.5-4.9) Magnesium Level 2.4 MG/DL (1.8-2.4) Current Medications Medications (Trade) Dose Ordered Sig/Luz Maria Route PRN Reason Start Time Stop Time Status Last Admin Dose Admin Albuterol/ Ipratropium (Albuterol/ Ipratropium) 3 ml Q4H PRN HHN Shortness of Breath 01/10/20 07:00 01/13/20 06:59 Amlodipine Besylate (Norvasc) 2.5 mg DAILY ORAL 01/11/20 13:30 02/10/20 13:29 01/12/20 09:40 Ceftriaxone Sodium 1 gm/ Dextrose 55 ml @ 110 mls/hr Q24H IVPB 01/10/20 11:00 01/17/20 10:59 01/12/20 12:03 Dextrose (Dextrose 50%) 25 ml Q30M PRN IV Hypoglycemia 01/10/20 06:45 02/06/20 03:44 Dextrose (Dextrose 50%) 50 ml Q30M PRN IV Hypoglycemia 01/10/20 06:45 02/06/20 03:44 Heparin Sodium (Porcine) (Heparin 5000 units/ml) 5,000 units EVERY 12 HOURS SUBQ 01/10/20 09:00 02/06/20 20:59 01/12/20 09:40 Insulin Aspart (NovoLOG) BEFORE MEALS AND HS SUBQ 01/10/20 06:30 02/06/20 06:29 01/11/20 16:49 Magnesium Oxide (Mag-Ox 400mg) 400 mg THREE TIMES A DAY ORAL 01/12/20 09:00 02/11/20 08:59 01/12/20 12:58 Pantoprazole (Protonix) 40 mg DAILY ORAL 01/10/20 09:00 02/08/20 08:59 01/12/20 09:40 Sodium 1,000 ml @ 50 mls/hr Q20H IV 01/11/20 13:15 02/10/20 13:14 01/11/20 13:15 Harlan Jackson MD Jan 12, 2020 13:17
--- NOTE | 2020-01-12 13:27 | Nephrology Progress Note ---
Assessment/Plan Problem List: (1) Dehydration (2) Hypernatremia (3) Hyperkalemia (4) UTI (urinary tract infection) (5) PAUL (acute kidney injury) (6) Severe protein-calorie malnutrition (7) Toxic metabolic encephalopathy (8) Hypomagnesemia (9) Hypophosphatemia Plan lab better, replace K phos mg Subjective ROS Limited/Unobtainable: Yes Objective Objective Last 24 Hour Vital Signs Date Time Temp Pulse Resp B/P (MAP) Pulse Ox O2 Delivery O2 Flow Rate FiO2 01/12/20 12:00 97.3 102 17 117/78 (91) 97 01/12/20 09:40 81 117/82 01/12/20 09:00 Room Air 01/12/20 08:00 98.2 81 18 117/82 (94) 95 01/12/20 04:00 97.6 85 16 127/75 (92) 98 01/12/20 00:00 98.7 95 16 131/84 (100) 98 01/11/20 21:00 Room Air 01/11/20 20:00 97.3 95 18 139/83 (101) 98 01/11/20 16:00 97.3 87 18 119/82 (94) 98 01/11/20 14:08 94 155/96 Intake and Output 01/11/20 01/12/20 19:00 07:00 Intake Total 995 ml 640 ml Output Total 800 ml 680 ml Balance 195 ml -40 ml Intake Oral 360 ml 40 ml IV Total 635 ml 600 ml Output Urine Total 800 ml 680 ml Laboratory Tests 01/12/20 05:25: Sodium Level 143, Potassium Level 4.6, Chloride Level 109H, Carbon Dioxide Level 20L, Anion Gap 14, Blood Urea Nitrogen 14, Creatinine 1.0, Estimat Glomerular Filtration Rate 52.5, Glucose Level 94, Calcium Level 8.6, Phosphorus Level 3.6, Magnesium Level 2.4 Height (Feet): 5 Height (Inches): 0.00 Weight (Pounds): 106 General Appearance: no apparent distress EENT: normal ENT inspection Neck: normal alignment Cardiovascular: normal rate Respiratory/Chest: lungs clear Abdomen: non tender, soft Extremities: no edema Neurologic: pega developer II-XII grossly normal Randolph Gonzalez MD Jan 12, 2020 13:27
[2020-01-12 16:00] VITALS: BP 127/74
[2020-01-12] MEDS: 1/2NS w/KCl 20mEq 1000ml 1,000 ML IV SCH (17:57)
--- NOTE | 2020-01-12 19:30 | NUR ---
HAND-OFF: Report given to Herlinda VANCE. Patient is stable.
--- NOTE | 2020-01-12 19:35 | NUR ---
NURSE NOTES: Received report from RAJIV Wells, rounds done. patient stable, velásquez catheter patent, draining clear yellow urine. Repositioned for comfort. Denies pain.
[2020-01-12 20:00] VITALS: BP 102/63
--- NOTE | 2020-01-12 20:50 | General Progress Note ---
Assessment/Plan Problem List: (1) Hyperkalemia ICD Codes: E87.5 - Hyperkalemia SNOMED: 20717120, 1836692 (2) Hypernatremia ICD Codes: E87.0 - Hyperosmolality and hypernatremia SNOMED: 347988074 (3) Sepsis ICD Codes: A41.9 - Sepsis, unspecified organism SNOMED: 32147260 (4) UTI (urinary tract infection) ICD Codes: N39.0 - Urinary tract infection, site not specified SNOMED: 86640466 (5) Toxic metabolic encephalopathy ICD Codes: G92 - Toxic encephalopathy SNOMED: 734802870 (6) Severe protein-calorie malnutrition ICD Codes: E43 - Unspecified severe protein-calorie malnutrition SNOMED: 952496950, 772659261, 655346989 Status: stable Assessment/Plan: o2 resp rx complete iv abx per id replace lytes titrate bp meds dvt/stress ulcer prophylaxis Subjective ROS Limited/Unobtainable: No Constitutional: Reports: malaise, weakness HEENT: Reports: no symptoms Cardiovascular: Reports: no symptoms Respiratory: Reports: cough Gastrointestinal/Abdominal: Reports: no symptoms Genitourinary: Reports: no symptoms Neurologic/Psychiatric: Reports: no symptoms Endocrine: Reports: no symptoms Hematologic/Lymphatic: Reports: no symptoms Allergies: Coded Allergies: No Known Allergies (Unverified , 11/03/19) All Systems: reviewed and negative except above Subjective resting. no complaints. no fevers. on iv abx per ID recs. no overnight events per night nurse ID noted. Objective Last 24 Hour Vital Signs Date Time Temp Pulse Resp B/P (MAP) Pulse Ox O2 Delivery O2 Flow Rate FiO2 01/12/20 19:37 107 24 95 Room Air 21 01/12/20 16:00 97.1 109 18 127/74 (91) 98 01/12/20 12:00 97.3 102 17 117/78 (91) 97 01/12/20 09:40 81 117/82 01/12/20 09:00 Room Air 01/12/20 08:00 98.2 81 18 117/82 (94) 95 01/12/20 04:00 97.6 85 16 127/75 (92) 98 01/12/20 00:00 98.7 95 16 131/84 (100) 98 01/11/20 21:00 Room Air Intake and Output 01/11/20 01/12/20 19:00 07:00 Intake Total 995 ml 640 ml Output Total 800 ml 680 ml Balance 195 ml -40 ml Intake Oral 360 ml 40 ml IV Total 635 ml 600 ml Output Urine Total 800 ml 680 ml Laboratory Tests 01/12/20 05:25: Sodium Level 143, Potassium Level 4.6, Chloride Level 109H, Carbon Dioxide Level 20L, Anion Gap 14, Blood Urea Nitrogen 14, Creatinine 1.0, Estimat Glomerular Filtration Rate 52.5, Glucose Level 94, Calcium Level 8.6, Phosphorus Level 3.6, Magnesium Level 2.4 Height (Feet): 5 Height (Inches): 0.00 Weight (Pounds): 106 Objective General Appearance: WD/WN, alert Neck: supple Cardiovascular: normal rate Respiratory/Chest: lungs clear, normal breath sounds Abdomen: normal bowel sounds, non tender, soft, no organomegaly Pelvis: normal external exam, normal rectal exam, speculum exam normal Edema: no edema noted Arm (L), no edema noted Arm (R), no edema noted Leg (L), no edema noted Leg (R), no edema noted Pedal (L), no edema noted Pedal (R), no edema noted Generalized Neurologic: alert, disoriented Maximino Harmon MD Jan 12, 2020 20:50
--- NOTE | 2020-01-12 22:30 | Progress Note ---
DATE: 01/12/2020 CARDIOLOGY PROGRESS NOTE SUBJECTIVE: No complaints. No fevers. Remains on IV antimicrobials. OBJECTIVE: VITAL SIGNS: Blood pressure 127/74, pulse 109, respirations 18, and afebrile. LUNGS: Bilateral breath sounds. Rhonchi. HEART: Irregular rhythm. Rapid rate. Normal S1, S2. ABDOMEN: Soft. EXTREMITIES: Trace edema. LABORATORY DATA: Potassium 4.6, BUN 14, creatinine 1, magnesium 2.4. IMPRESSION: 1. Dehydration. 2. Hypernatremia, resolved. 3. Hyperchloremia, improved. 4. Metabolic acidosis, recovering. 5. Hypomagnesemia, corrected. 6. Hypophosphatemia, corrected. 7. Polymicrobial urinary tract infection. 8. Hypertensive heart disease with labile blood pressure. 9. Type 2 diabetes mellitus. 10. Atrial ectopy PLAN: 1. Adjust IV fluids. 2. Continue antimicrobials. 3. Titrate antihypertensives. 4. Maintain adequate fluid intake. 5. Discharge planning. Kevin Zapata M.D. DR: GUERO JOB#: [id number] CC: HETAL
[2020-01-13] VITALS: BP 102/55
[2020-01-13 04:30] VITALS: BP 90/58
[2020-01-13] MEDS: 1/2NS w/KCl 20mEq 1000ml 1,000 ML IV SCH ×2 (05:15→19:58)
[2020-01-13 05:33] LABS: BASOPHILS % (AUTO) 0.6 % (0.0-2.0); EOSINOPHILS % (AUTO) 2.1 % (0.0-3.0); HEMATOCRIT 33.3 % (37.0-47.0); HEMOGLOBIN 11.5 G/DL (12.0-16.0); LYMPHOCYTES % (AUTO) 22.8 % (20.0-45.0); MEAN CORPUSCULAR VOLUME 89 FL (80-99); MONOCYTES % (AUTO) 9.3 % (1.0-10.0); NEUTROPHILS % (AUTO) 65.2 % (45.0-75.0); PLATELET COUNT 146 K/UL (150-450); RED BLOOD COUNT 3.74 M/UL (4.20-5.40); RED CELL DISTRIBUTION WIDTH 13.6 % (11.6-14.8); WHITE BLOOD COUNT 9.1 K/UL (4.8-10.8)
[2020-01-13 05:55] LABS: ALANINE AMINOTRANSFERASE 18 U/L (12-78); ALBUMIN 2.7 G/DL (3.4-5.0); ALBUMIN/GLOBULIN RATIO 0.7 (1.0-2.7); ALKALINE PHOSPHATASE 32 U/L (46-116); ANION GAP 12 mmol/L (5-15); ASPARTATE AMINO TRANSFERASE 28 U/L (15-37); BILIRUBIN,TOTAL 0.4 MG/DL (0.2-1.0); BLOOD UREA NITROGEN 17 mg/dL (7-18); CALCIUM 8.3 MG/DL (8.5-10.1); CARBON DIOXIDE 19 MMOL/L (21-32); CHLORIDE 110 MMOL/L (98-107); CREATININE 1.1 MG/DL (0.55-1.30); POTASSIUM 4.9 MMOL/L (3.5-5.1); SODIUM 141 MMOL/L (136-145)
[2020-01-13] MEDS: NovoLOG Insulin Flexpen SUBQ SCH ×4 (06:21→21:00)
--- NOTE | 2020-01-13 07:30 | NUR ---
NURSE NOTES: Patient is in bed awake. Stable. Able to follow simple commands. Patient is in bed in locked and lowest position with call light within reach. All safety measures provided. Will continue to monitor.
--- NOTE | 2020-01-13 07:31 | NUR ---
HAND-OFF: Report given to RAJIV Cason. Rounding done. No distress noted.
[2020-01-13 08:00] VITALS: BP 98/60
[2020-01-13] MEDS: Magnesium Oxide 400mg tab ORAL SCH ×3 (08:11→17:35)
[2020-01-13] MEDS: Heparin 5000 units/ml inj SUBQ SCH ×2 (08:15→20:44)
--- NOTE | 2020-01-13 10:38 | Infectious Diseases Prog Note ---
"Assessment/Plan Assessment/Plan antibiotics : zosyn A 1. klebsiella | e.coli UTI s/p rx 2. leucocytosis resolved 3. diabetes mellitus 4. hypertension 5. dementia 6. hypernatremia improving P 1. d/c ceftriaxone 2. observe off antibiotics Subjective ROS Limited/Unobtainable: Yes Allergies: Coded Allergies: No Known Allergies (Unverified , 11/03/19) Objective Vital Signs Last 24 Hour Vital Signs Date Time Temp Pulse Resp B/P (MAP) Pulse Ox O2 Delivery O2 Flow Rate FiO2 01/13/20 08:20 95 98/60 01/13/20 04:30 99.1 99 18 90/58 (69) 97 01/13/20 00:00 97.5 99 18 102/55 (71) 97 01/13/20 00:00 Room Air 01/12/20 21:00 Room Air 01/12/20 20:00 97.9 99 20 102/63 (76) 98 01/12/20 19:37 107 24 95 Room Air 21 01/12/20 16:00 97.1 109 18 127/74 (91) 98 01/12/20 12:00 97.3 102 17 117/78 (91) 97 Height (Feet): 5 Height (Inches): 0.00 Weight (Pounds): 106 Respiratory/Chest: lungs clear Cardiovascular: normal rate, regular rhythm, no gallop/murmur Abdomen: soft, non tender Extremities: no edema Laboratory Tests Test 01/13/20 05:00 White Blood Count 9.1 K/UL (4.8-10.8) Red Blood Count 3.74 M/UL (4.20-5.40) L Hemoglobin 11.5 G/DL (12.0-16.0) L Hematocrit 33.3 % (37.0-47.0) L Mean Corpuscular Volume 89 FL (80-99) Mean Corpuscular Hemoglobin 30.7 PG (27.0-31.0) Mean Corpuscular Hemoglobin Concent 34.5 G/DL (32.0-36.0) Red Cell Distribution Width 13.6 % (11.6-14.8) Platelet Count 146 K/UL (150-450) L Mean Platelet Volume 7.0 FL (6.5-10.1) Neutrophils (%) (Auto) 65.2 % (45.0-75.0) Lymphocytes (%) (Auto) 22.8 % (20.0-45.0) Monocytes (%) (Auto) 9.3 % (1.0-10.0) Eosinophils (%) (Auto) 2.1 % (0.0-3.0) Basophils (%) (Auto) 0.6 % (0.0-2.0) Sodium Level 141 MMOL/L (136-145) Potassium Level 4.9 MMOL/L (3.5-5.1) Chloride Level 110 MMOL/L (98-107) H Carbon Dioxide Level 19 MMOL/L (21-32) L Anion Gap 12 mmol/L (5-15) Blood Urea Nitrogen 17 mg/dL (7-18) Creatinine 1.1 MG/DL (0.55-1.30) Estimat Glomerular Filtration Rate 47.0 mL/min (>60) Glucose Level 149 MG/DL (74-106) H Calcium Level 8.3 MG/DL (8.5-10.1) L Total Bilirubin 0.4 MG/DL (0.2-1.0) Aspartate Amino Transf (AST/SGOT) 28 U/L (15-37) Alanine Aminotransferase (ALT/SGPT) 18 U/L (12-78) Alkaline Phosphatase 32 U/L (46-116) L Total Protein 6.5 G/DL (6.4-8.2) Albumin 2.7 G/DL (3.4-5.0) L Globulin 3.8 g/dL Albumin/Globulin Ratio 0.7 (1.0-2.7) L Current Medications Medications (Trade) Dose Ordered Sig/Luz Maria Route PRN Reason Start Time Stop Time Status Last Admin Dose Admin Amlodipine Besylate (Norvasc) 2.5 mg DAILY ORAL 01/11/20 13:30 02/10/20 13:29 01/12/20 09:40 Ceftriaxone Sodium 1 gm/ Dextrose 55 ml @ 110 mls/hr Q24H IVPB 01/10/20 11:00 01/13/20 23:59 01/12/20 12:03 Dextrose (Dextrose 50%) 25 ml Q30M PRN IV Hypoglycemia 01/10/20 06:45 02/06/20 03:44 Dextrose (Dextrose 50%) 50 ml Q30M PRN IV Hypoglycemia 01/10/20 06:45 02/06/20 03:44 Heparin Sodium (Porcine) (Heparin 5000 units/ml) 5,000 units EVERY 12 HOURS SUBQ 01/10/20 09:00 02/06/20 20:59 01/13/20 08:15 Insulin Aspart (NovoLOG) BEFORE MEALS AND HS SUBQ 01/10/20 06:30 02/06/20 06:29 01/11/20 16:49 Magnesium Oxide (Mag-Ox 400mg) 400 mg THREE TIMES A DAY ORAL 01/12/20 09:00 02/11/20 08:59 01/13/20 08:11 Pantoprazole (Protonix) 40 mg DAILY ORAL 01/10/20 09:00 02/08/20 08:59 01/13/20 08:11 Sodium 1,000 ml @ 50 mls/hr Q20H IV 01/11/20 13:15 02/10/20 13:14 01/12/20 17:57 Johnathan Caldwell MD Jan 13, 2020 10:38"
--- NOTE | 2020-01-13 11:20 | NUR ---
SWALLOW EVAL AND D/C SUMMARY: SEEN FOR DYSPHAGIA, SEE SWALLOW EVAL FROM TODAY (AND FROM 10/2019 ADMIT). GROSSLY FUNCTIONAL WITH LIQUIDS, REFUSING PUREED. PLAN: DOWNGRADE TO ([facility]) LIQUIFIED PUREED LIKE NECTAR THICK SOUP (OK TO HAVE THIN LIQUIDS) SEND GLUCERRELL TID AND GIVE TO HER THROUGHOUT DAY (FAVORS LIQUIDS) USE POSTED ASPIRATION PRECAUTIONS AND ONE TO ONE FEEDING. NO MOD BARIUM SWALLOW SINCE WOULD REFUSE MOST CONSISTENCIES AND LUNGS ARE CLEAR OF INFILTRATES (ONLY HAS NODULES) W/O OVERT ASPIRATION (THOUGH HAS SILENT ASP RISK). CONSIDER APPETITE STIMULANT AND ADDING SWEETENER TO FOODS. LEFT MESSAGE WITH DR SAUCEDO AND EDUCATED/TRAINED RN JERMAINE IN POSTED PRECAUTIONS. WILL D/C FROM [employer] AT THIS TIME. F/UP WITH LOCATOR AT [facility] UPON D/C FOR DYSPHAGIA MANAGEMENT AND TX ( SHE MAY BENEFIT FROM SENSORY AWARENESS TASTE/TEMPERATURE/TASTE TX CHANGES FOR THAT ENVIRONMENT). Addendum: 01/13/20 at 1141 by RAFAEL FREDERICK LOCATOR UPDATED SUMMARY: REFERRED FOR SWALLOW EVAL BY DR SAUCEDO, SEE FULL REPORT. DYSPHAGIA RISK FACTORS FOR THIS 89 Y.O. ADVANCED AGED FRENCH-SPEAKING FEMALE: ACUTE ISSUES, SEPSIS, HYPERKALEMIA, UTI POSSIBLE PNA (NEGATIVE CXR FOR ACUTE HAS LEFT NODULES), AZOTEMIA, RENAL FAILURE H/O OP DYSPHAGIA (MILD-MOD), CV DZ, VASCULAR AND ALZHEIMER'S DX DEMENTIA, DEHYDRATION, P-C MALNUTRITION, MET ENCEPHALOPATHY, NIDDM, DEPRESSION (WAS ON MEDS). POLST STATES NO TUBE FEEDINGS NOW. ON ON A CCHO-MED PUREED AND THIN LIQUID DIET. PER RN, ONLY TAKES LIQUIDS AND RESTRICTS MOUTH OPENING WITH PUREED AND CRUSHED MEDS AND WILL TAKE VERY SLOWLY. EDENTULOUS MOSTLY WITH A FEW TEETH, DIFFICULT TO SEE, DID NOT FOLLOW ORAL COMMANDS EVEN WITH VISUAL CUES. INITIAL IMPRESSIONS: GROSSLY FUNCTIONAL SWALLOW WITH THIN AND NECTAR THICK LIQUIDS VIA STRAW SEQUENTIAL SIPS. REFUSED PUREED AND MASTICATED SOLIDS. NO OVERT ASPIRATION BUT HAS SILENT ASP RISK POOR TO NO INTAKE BUT FAVORS HIGH ALLEN SUPPLEMENTS AND ALL LIQUIDS. PLAN: DOWNGRADE TO ([facility]) LIQUIFIED PUREED LIKE NECTAR THICK SOUP (OK TO HAVE THIN LIQUIDS) SEND GLUCERNA TID AND GIVE TO HER THROUGHOUT DAY (FAVORS LIQUIDS). CONTINUE WITH PO INTAKE SINCE POLST STATES NO TUBE FEEDINGS (CONTINUE WITH COMFORT FEEDING FOR QUALITY OF LIFE PURPOSES). USE POSTED ASPIRATION PRECAUTIONS AND ONE TO ONE FEEDING. NO MOD BARIUM SWALLOW SINCE WOULD REFUSE MOST CONSISTENCIES AND LUNGS ARE CLEAR OF INFILTRATES (ONLY HAS NODULES) W/O OVERT ASPIRATION (THOUGH HAS SILENT ASP RISK). CONSIDER APPETITE STIMULANT AND ADDING SWEETENER TO FOODS. LEFT MESSAGE WITH DR SAUCEDO AND EDUCATED/TRAINED RAJIV DEAN IN POSTED PRECAUTIONS. WILL D/C FROM [employer] LOC[employer] [facility] AT THIS TIME. F/UP WITH LOCATOR AT SNF UPON D/C FOR DYSPHAGIA MANAGEMENT AND TX ( SHE MAY BENEFIT FROM SENSORY AWARENESS TASTE/TEMPERATURE/TASTE TX CHANGES FOR THAT ENVIRONMENT).
[2020-01-13 12:00] VITALS: BP 108/62
--- NOTE | 2020-01-13 13:47 | Surgery Progress Note ---
Surgery Progress Note Subjective Additional Comments no acute events tolerating oral comfortable on mattress Objective Last 24 Hour Vital Signs Date Time Temp Pulse Resp B/P (MAP) Pulse Ox O2 Delivery O2 Flow Rate FiO2 01/13/20 12:00 97 18 108/62 (77) 96 01/13/20 09:00 Room Air 01/13/20 08:20 95 98/60 01/13/20 08:00 97.0 95 20 98/60 (73) 97 01/13/20 04:30 99.1 99 18 90/58 (69) 97 01/13/20 00:00 97.5 99 18 102/55 (71) 97 01/13/20 00:00 Room Air 01/12/20 21:00 Room Air 01/12/20 20:00 97.9 99 20 102/63 (76) 98 01/12/20 19:37 107 24 95 Room Air 21 01/12/20 16:00 97.1 109 18 127/74 (91) 98 I&O Intake and Output 01/12/20 01/13/20 19:00 07:00 Intake Total 410 ml 840 ml Output Total 650 ml Balance 410 ml 190 ml Intake Oral 360 ml 240 ml IV Total 50 ml 600 ml Output Urine Total 650 ml # Bowel Movements 2 Dressing: other Wound: other Drains: other Cardiovascular: RSR Respiratory: clear Abdomen: soft, non-tender, present bowel sounds Extremities: no tenderness, no cyanosis Laboratory Tests Test 01/13/20 05:00 White Blood Count 9.1 K/UL (4.8-10.8) Red Blood Count 3.74 M/UL (4.20-5.40) L Hemoglobin 11.5 G/DL (12.0-16.0) L Hematocrit 33.3 % (37.0-47.0) L Mean Corpuscular Volume 89 FL (80-99) Mean Corpuscular Hemoglobin 30.7 PG (27.0-31.0) Mean Corpuscular Hemoglobin Concent 34.5 G/DL (32.0-36.0) Red Cell Distribution Width 13.6 % (11.6-14.8) Platelet Count 146 K/UL (150-450) L Mean Platelet Volume 7.0 FL (6.5-10.1) Neutrophils (%) (Auto) 65.2 % (45.0-75.0) Lymphocytes (%) (Auto) 22.8 % (20.0-45.0) Monocytes (%) (Auto) 9.3 % (1.0-10.0) Eosinophils (%) (Auto) 2.1 % (0.0-3.0) Basophils (%) (Auto) 0.6 % (0.0-2.0) Sodium Level 141 MMOL/L (136-145) Potassium Level 4.9 MMOL/L (3.5-5.1) Chloride Level 110 MMOL/L (98-107) H Carbon Dioxide Level 19 MMOL/L (21-32) L Anion Gap 12 mmol/L (5-15) Blood Urea Nitrogen 17 mg/dL (7-18) Creatinine 1.1 MG/DL (0.55-1.30) Estimat Glomerular Filtration Rate 47.0 mL/min (>60) Glucose Level 149 MG/DL (74-106) H Calcium Level 8.3 MG/DL (8.5-10.1) L Total Bilirubin 0.4 MG/DL (0.2-1.0) Aspartate Amino Transf (AST/SGOT) 28 U/L (15-37) Alanine Aminotransferase (ALT/SGPT) 18 U/L (12-78) Alkaline Phosphatase 32 U/L (46-116) L Total Protein 6.5 G/DL (6.4-8.2) Albumin 2.7 G/DL (3.4-5.0) L Globulin 3.8 g/dL Albumin/Globulin Ratio 0.7 (1.0-2.7) L Plan Problems: (1) Deep tissue injury Assessment & Plan: 89-year-old female multiple medical comorbidities presented with leukocytosis, abnormal labs, dehydration, UTI, identified to have sacral DTI. At the top examination completed and patient evaluated. Multiple areas of possible decline identified. No acute surgical intervention indicated or recommended Appropriate wound care instructions were given Apply skin protectant and OPTi foam dressing to sacral area and bilateral heels. Change q. 3 days. Turn every 2 hours Offload pressure Heel protectors and elevate heels with pillow Nutritional optimization Given patient's age, nutritional status, overall condition she is at high risk for further development of worsening decubitus. Will need to keep close monitoring to ensure above care plan Thank you for let me participate in patient's care will follow with recommendations (2) Severe protein-calorie malnutrition (3) Leukocytosis Assessment & Plan: Patient presented with leukocytosis abnormal labs dehydration and UTI. Patient identified to have decubitus ulcer with deep tissue injury concerning for possible infectious process. No acute infection seen from DTI and leukocytosis likely from UTI. wbc improved Antibiotics as per primary. (4) Sepsis Assessment & Plan: improving overall cont current care Ibrahima Connors Jan 13, 2020 13:47
[2020-01-13 16:00] VITALS: BP 101/58
--- NOTE | 2020-01-13 19:29 | NUR ---
NURSE NOTES: Received report from RAJIV Wells. Patient sitting up in bed, IV site intact in R hand, infusing IVF. Calvo catheter patent, draining clear yellow urine. Bed in low position, locked, side rails up x3. Call light within reach, able to follow some simple commands, alert, oriented to self. Will continue to monitor.
--- NOTE | 2020-01-13 19:30 | NUR ---
HAND-OFF: Report given to Herlinda VANCE. Patient is stable.
[2020-01-13 20:00] VITALS: BP 115/75
--- NOTE | 2020-01-13 21:28 | NUR ---
NURSE NOTES: Per AM nurse report, IV was discontinued at around 10 AM today and new IV site started on RH, gauge #22.
[2020-01-14] VITALS: BP 102/61
[2020-01-14] MEDS ORDERED: HydrALAZINE 10mg Tab ORAL PRN (02:15)
--- NOTE | 2020-01-14 03:30 | Progress Note ---
DATE: 01/13/2020 CARDIOLOGY PROGRESS NOTE SUBJECTIVE: Comfortable. No distress. Tolerating diet. OBJECTIVE: VITAL SIGNS: Blood pressure 101/58, pulse 96, respirations 20, afebrile, and T-max 99.2. LUNGS: Diminished breath sounds. HEART: Regular rhythm and rate. Normal S1, S2. ABDOMEN: Soft. EXTREMITIES: Trace edema. LABORATORY DATA: Sodium 141, potassium 4.9, bicarb 19, BUN 17, and creatinine 1.1. White count 9.1 and hemoglobin 11.5. IMPRESSION: 1. Metabolic parameters have been stabilized and corrected with stabilized volume status and electrolyte parameters. 2. Low range blood pressure. 3. Urinary tract infection with sepsis, resolved. PLAN: 1. Discontinue intravenous fluids. 2. Off antimicrobials per Infectious Disease internet sales consultant. 3. Encourage oral intake. 4. Discontinue amlodipine. 5. Initiate p.r.n. antihypertensives only. 6. Discharge planning. Kevin Zapata M.D. DR: FRANKY JOB#: [id number] CC:
[2020-01-14 04:00] VITALS: BP 108/64
[2020-01-14] MEDS: NovoLOG Insulin Flexpen SUBQ SCH ×2 (06:25→11:30)
--- NOTE | 2020-01-14 07:41 | NUR ---
HAND-OFF: Report given to RAJIV Smith.
[2020-01-14 08:00] VITALS: BP 126/76
--- NOTE | 2020-01-14 08:19 | NUR ---
CASE MANAGEMENT:REVIEW 01/13/20 SI: ACUTE KIDNEY INJURY SEVERE DEHYDRATION. UTI 97.0 95 20 96/60 97% ON RA H/H 11.5/33.3 PLT 146 CL-110 CO2 19 BG 149 CA+8.3 IS: IV MAG-OX PO TID PROTONIX PO QD : TELEMETRY STATUS DCP: FROM [facility] PLAN: DC OFF IV ABX ABD OBSERVE DC PLANNING BACK TO [facility] IN AM
[2020-01-14] MEDS: Magnesium Oxide 400mg tab ORAL SCH ×2 (08:56→13:00)
[2020-01-14] MEDS: Heparin 5000 units/ml inj SUBQ SCH (08:59)
--- NOTE | 2020-01-14 10:01 | NUR ---
DISCHARGE PLANNED: PATIENT ACCEPTED BACK TO [facility] ROOM#61[facility] PICKUP TIME @1200
--- NOTE | 2020-01-14 10:04 | NUR ---
DISCHARGE PLANNED: PATIENT ACCEPTED BACK TO [facility] T: [phone] FOR NURSE TO NURSE REPORT ROOM#61B [facility] PICKUP TIME @1200
--- NOTE | 2020-01-14 10:55 | Infectious Diseases Prog Note ---
"Assessment/Plan Assessment/Plan antibiotics : none A 1. klebsiella | e.coli UTI s/p rx 2. leucocytosis resolved 3. diabetes mellitus 4. hypertension 5. dementia 6. hypernatremia improving P 1. observe off antibiotics Subjective ROS Limited/Unobtainable: Yes Allergies: Coded Allergies: No Known Allergies (Unverified , 11/03/19) Objective Vital Signs Last 24 Hour Vital Signs Date Time Temp Pulse Resp B/P (MAP) Pulse Ox O2 Delivery O2 Flow Rate FiO2 01/14/20 04:00 98.6 88 17 108/64 (79) 96 01/14/20 00:00 99.2 100 16 102/61 (75) 96 01/13/20 21:00 Room Air 01/13/20 20:00 99.2 100 18 115/75 (88) 97 01/13/20 16:00 98.1 96 20 101/58 (72) 97 01/13/20 13:52 88 20 99 Room Air 21 01/13/20 12:00 97 18 108/62 (77) 96 Height (Feet): 5 Height (Inches): 0.00 Weight (Pounds): 106 Respiratory/Chest: lungs clear Cardiovascular: normal rate, regular rhythm, no gallop/murmur Abdomen: soft, non tender Extremities: no edema Current Medications Medications (Trade) Dose Ordered Sig/Luz Maria Route PRN Reason Start Time Stop Time Status Last Admin Dose Admin Dextrose (Dextrose 50%) 25 ml Q30M PRN IV Hypoglycemia 01/10/20 06:45 02/06/20 03:44 Dextrose (Dextrose 50%) 50 ml Q30M PRN IV Hypoglycemia 01/10/20 06:45 02/06/20 03:44 Heparin Sodium (Porcine) (Heparin 5000 units/ml) 5,000 units EVERY 12 HOURS SUBQ 01/10/20 09:00 02/06/20 20:59 01/13/20 08:15 Hydralazine HCl (Apresoline) 10 mg Q6H PRN ORAL SBP above 150 01/14/20 02:15 02/13/20 02:14 Insulin Aspart (NovoLOG) BEFORE MEALS AND HS SUBQ 01/10/20 06:30 02/06/20 06:29 01/13/20 11:51 Magnesium Oxide (Mag-Ox 400mg) 400 mg THREE TIMES A DAY ORAL 01/12/20 09:00 02/11/20 08:59 01/14/20 08:56 Pantoprazole (Protonix) 40 mg DAILY ORAL 01/10/20 09:00 02/08/20 08:59 01/14/20 08:56 Johnathan Caldwell MD Jan 14, 2020 10:55"
[2020-01-14 12:00] VITALS: BP 118/64
--- NOTE | 2020-01-14 12:10 | NUR ---
NURSE NOTES: Pt discharge back to [facility] . Son Lalo phoned made aware of mothers return , back to [facility] by charge nurse Greek speaker. Pt has poor meal intake required to be fed, and repositioned. All anticipated needs require to be met. Pictures taken and uploaded to computer. IV removed. Lynda report pt admitted with fc . FC changed at arrival. Report given to [facility]. Discharge packet to include information on uti, malnutrition
--- NOTE | 2020-01-14 12:22 | Surgery Progress Note ---
Surgery Progress Note Subjective Additional Comments no acute events comfortable stable Objective Last 24 Hour Vital Signs Date Time Temp Pulse Resp B/P (MAP) Pulse Ox O2 Delivery O2 Flow Rate FiO2 01/14/20 09:00 Room Air 01/14/20 08:00 97.6 68 19 126/76 (93) 01/14/20 04:00 98.6 88 17 108/64 (79) 96 01/14/20 00:00 99.2 100 16 102/61 (75) 96 01/13/20 21:00 Room Air 01/13/20 20:00 99.2 100 18 115/75 (88) 97 01/13/20 16:00 98.1 96 20 101/58 (72) 97 01/13/20 13:52 88 20 99 Room Air 21 I&O Intake and Output 01/13/20 01/14/20 19:00 07:00 Intake Total 50 ml 610 ml Output Total 400 ml 700 ml Balance -350 ml -90 ml Intake Oral 360 ml IV Total 50 ml 250 ml Output Urine Total 400 ml 700 ml # Voids 1 # Bowel Movements 1 Dressing: dry Wound: clean Cardiovascular: RSR Respiratory: clear Abdomen: soft, flat, non-tender, present bowel sounds Extremities: no cyanosis Plan Problems: (1) Deep tissue injury Assessment & Plan: 89-year-old female multiple medical comorbidities presented with leukocytosis, abnormal labs, dehydration, UTI, identified to have sacral DTI. Pt presented on admission with DTPI sacral area. Base of wound is maroon (L) 5.5cm x (W04.5cm with area that is purple and indurated at sacrococcygeal area(L )1cm x (W)0.6cm.Pt moaned when affected area minimally palpated. Senile purpura noted to jasbir/lower L tibia. Both heels are boggy with non-blanching erythema. Pt did not exhibit any distress when each heel individually palpated. Tx.plan: Apply Moisture Barrier paste to Sacrum. Cover with Optifoam drsg. Changee very 3 days and prn. Apply Cavilon Skin Barrier to both heels. Cover each heel with Optifoam drsg. Change every 7 days and prn. Apply Cavilon Skin Barrier to jasbir L tibia. Cover with Optifoam drsg. Change every 7 days and prn. APM/MEGHA mattress overlay. Reposition at l;east every 2hours or as tolerated. Off-load heels with pillow. Nutritional optimization Given patient's age, nutritional status, overall condition she is at high risk for further development of worsening decubitus. Will need to keep close monitoring to ensure above care plan Thank you for let me participate in patient's care will follow with recommendations (2) Severe protein-calorie malnutrition Assessment & Plan: DAILY ESTIMATED NEEDS: Needs based on Wound, wasting, DM 48kg 30-35 kcals/kg 6579-1161 total kcals 1.25-1.5 g protein/kg 60-72 g total protein 25-30 mL/kg 2324-6931 total fluid mLs NUTRITION DIAGNOSIS: * Increased kcal/prot intake needs R/T wound healing and wasting as evidenced by pt admitted w/ DTPI @ sacrum and non-blanching erythema @ BL heels, noted w/ mild-moderate generalized wasting. * Swallowing difficulty R/T dysphagia as evidenced by pt on pureed moist texture diet. CURRENT DIET: CCHO MED puree + Glucerna QD PO DIET RECOMMENDATIONS: Maintain CCHO MED/ texture per PIG MACHINE CRANE OPERATOR + Glucerna TID w/ meals ADDITIONAL RECOMMENDATIONS: 1) Wound care: add MVI x 1, Vit C 500mg QD, Mane 1pkt BID as tolerated 2) Calibrated bed scale weight -> suspected wt loss, wasting -> bedscale on 01/10 not functioning 3) Increase Glucerna to TID w/ meals 4) Record % intake of meals in EMR, monitor PO intake closely (intake of meals not available at this time) 5) Monitor renal fxn and lytes -> renal fxn improving w/ IVF (3) Leukocytosis Assessment & Plan: Patient presented with leukocytosis abnormal labs dehydration and UTI. Patient identified to have decubitus ulcer with deep tissue injury concerning for possible infectious process. No acute infection seen from DTI and leukocytosis likely from UTI. wbc improved Antibiotics as per primary. (4) Sepsis Assessment & Plan: improving overall cont current care Ibrahima Connors Jan 14, 2020 12:22
--- NOTE | 2020-01-15 02:30 | Progress Note ---
DATE: 01/14/2020 CARDIOLOGY PROGRESS NOTE SUBJECTIVE: The patient without distress. No chest pain or shortness of breath. Tolerating oral intake. OBJECTIVE: VITAL SIGNS: Vitals are stable. LUNGS: Clear. NECK: Supple. Jugular venous pressure normal. CARDIAC: Regular. No new murmur. ABDOMEN: Soft. EXTREMITIES: No edema. IMPRESSION: 1. Escherichia coli urinary tract infection, sepsis. 2. Dehydration. 3. ____. 4. Hypovolemia. 5. Metabolic and toxic encephalopathies, all resolved. PLAN: The patient is at baseline, stable to return to shelter facility for rehabilitation long-term care and physical therapy for mobility. Discharge medication regimen has been reviewed and updated. Hospital course and further care plans discussed with her primary care physician. Kevin Zapata M.D. DR: DELIA JOB#: [id number] CC:
--- NOTE | 2020-01-15 18:11 | Discharge Summary ---
Discharge Summary Discharge Summary _ DATE OF ADMISSION: 01/07/2020 DATE OF DISCHARGE: 01/14/2020 DISCHARGED BY: Dr. Harmon REASON FOR ADMISSION: 89 years old female , resident of assisted facility, with past medical history of hypertension, sinus node disease with bradycardia, cerebrovascular disease with dementia, diabetes mellitus type 2, peripheral artery disease with microangiopathy, noted to be withdrawn and lethargic over the past few days. Patient had abnormal laboratory studies , which prompted initiation of IV fluids. Her condition did not adequately improved. Patient continued to have worsening renal function and lethargy , and subsequently she was transferred to emergency room for evaluation and further management. In emergency room she was noted to be hypotensive with multiple laboratory abnormality. Patient was tachycardic ,hypotensive, had low-grade fever and leukocytosis. Urinalysis was grossly positive for urinary tract infection. Lactic acid 2.0. Sodium 161, potassium 6.0. BUN 130, creatinine 4.9. Glucose 245. Troponin 0.041. EKG reveals sinus tachycardia , no acute ischemic changes. Chest x-ray demonstrated left midlung nodule, previously reported. No acute process otherwise. In emergency department septic work-up initiated, and patient was admitted for further management. CONSULTANTS: policewoman Dr.Kattan BRIDGES specialist Dr. Caldwell swine extension field specialist Dr. Gonzalez [facility] COURSE: Patient admitted and started on volume resuscitation and empiric antibiotics. Patient received Kayexalate, insulin and glucose in emergency room for hyperkalemia treatment. Renal parameters and electrolytes were closely monitored along with acid-base parameters. Aspiration precaution maintained. DVT and GI prophylaxis provided. Urine culture revealed Klebsiella pneumonia and E. coli. Blood cultures were negative. Antibiotics regimen optimized as per ID specialist recommendation. Renal parameters and electrolytes were closely monitored, electrolytes further corrected as needed. With IV hydration , acute kidney injury resolved . Prior to discharge BUN 17, creatinine 1.1. All electrolytes stable. Repeated urine culture was negative. Echocardiogram revealed preserved ejection fraction of 60 to 65% with mild to moderate left ventricular hypertrophy. No evidence of wall motion abnormality. No evidence of pericardial effusion. Mild mitral regurgitation. Right ventricular systolic pressure of 26. Bedside swallow evaluation revealed no overt aspiration, but silent aspiration risk. Diet texture provided as per speech therapist recommendation with strict aspiration precaution and one-to-one supervision. Protein supplements provided as per certified registered nurse anesthetist recommendation. When blood pressure stabilized, patient started on low-dose of amlodipine. Blood sugar was managed with sliding scale of insulin and improved. Supportive care provided. Patient presented on admission with deep tissue injury to sacral area. Wound care provided as per surgeon recommendation. Continue wound care at the facility. Patient clinically stabilized and was ready for transfer back to assisted facility for continuation of care. FINAL DIAGNOSES: Sepsis Klebsiella, E. coli UTI, status post treatment Metabolic and toxic encephalopathy Hypovolemic shock -recovered Dehydration Hypernatremia Hyperkalemia Multiple electrolyte abnormality Metabolic acidosis Acute renal failure Diabetes mellitus type 2 with hyperglycemia Cerebrovascular disease with dementia Deep tissue injury to sacral area , present on admission DISCHARGE MEDICATIONS: List of medication was sent with patient DISCHARGE INSTRUCTIONS: Patient was discharged to the assisted facility. Follow up with medical doctor at the facility. I have been assigned to dictate discharge summary for this account. I was not involved in the patient's management. Amanda Boucher NP Jan 15, 2020 18:11
== END 2020-01-14 12:20 | DRG 871 ==
LOC: EDBD 21:18 → EMR 21:25 → EDBEDREQSVC 01-07 03:42 → EDBEDREQ 01-07 03:42 → 2E 01-07 06:23 → 3E 01-10 05:45
DX: A41.9 Sepsis, unspecified organism (principal); G92 Toxic encephalopathy; R57.1 Hypovolemic shock; E43 Unspecified severe protein-calorie malnutrition; N39.0 Urinary tract infection, site not specified; N17.9 Acute kidney failure, unspecified; E87.0 Hyperosmolality and hypernatremia; E87.5 Hyperkalemia; L89.156 Pressure-induced deep tissue damage of sacral region; E11.65 Type 2 diabetes mellitus with hyperglycemia; F01.50 Vascular dementia, unspecified severity, without behavioral disturbance, psychotic disturbance, mood disturbance, and anxiety; B96.1 Klebsiella pneumoniae [K. pneumoniae] as the cause of diseases classified elsewhere; B96.20 Unspecified Escherichia coli [E. coli] as the cause of diseases classified elsewhere; E86.0 Dehydration; Z79.84 Long term (current) use of oral hypoglycemic drugs; R62.7 Adult failure to thrive; E11.22 Type 2 diabetes mellitus with diabetic chronic kidney disease; N18.9 Chronic kidney disease, unspecified; E87.8 Other disorders of electrolyte and fluid balance, not elsewhere classified; I11.9 Hypertensive heart disease without heart failure; E83.42 Hypomagnesemia; E83.39 Other disorders of phosphorus metabolism
CPT/HCPCS: 36415; 71045; 80048; 80053; 81003; 82550; 82553; 82962; 83605; 83735; 84100; 84443; 84484; 84550; 85025; 87040; 87081; 87086; 87181; 93005; 93306; 94664; 96361; 96365; 96375; 99291; J7030; J8499